=== PATIENT | female | born 1955 | race Caucasian/White ===

== ENCOUNTER → 2017-06-02 07:58 | Day surgery (SDC) | payer MEDICARE, OTHER, SELFPAY ==
[2017-06-01 11:47] VITALS: BMI 31.4
[2017-06-02] VITALS (10 sets, daily range): BP systolic 104–153; BP diastolic 48–79; PULSE 58–73; RESP 12–20; TEMP 36.7–36.8; O2SAT 94–100
--- NOTE | 2017-06-02 08:59 | HMH.SCOPE ---
- Procedure: Date: 06/02/17 Procedure Performed:: Esophagogastroduodenoscopy with biopsies Indications:: Patient is a 61-year-old white female with history of Wills's esophagus. She had undergone upper endoscopy 1 year ago and had biopsy-proven Wills's esophagus without dysplasia. She has been on Nexium. Also of note, patient had previously had a colonoscopy and it was recommended she undergo follow-up 3 years from now. Patient has some minor symptoms of occasional dysphagia but this is minimal. Performing Provider:: Matt Mohr MD Referring Provider:: Edson Berkowitz MD Sedation:: Versed 7 mg, fentanyl 150 mcg. Procedure:: Consent was obtained and patient was taken to endoscopy procedure room. She was positioned in a lateral decubitus position. Adequate anesthesia was achieved with titration of Versed and fentanyl. Olympus endoscope was inserted via the oropharynx. The majority of the esophagus appeared normal. The distal esophagus approximately 33 cm from the incisors there was a very short segment of Wills's. Stomach was cannulated and insufflated. Retroflexion was performed which revealed a small to moderate sliding hiatal hernia. Gastric antral mucosal biopsies obtained for CLOtest for H. pylori. Pylorus was traversed and the endoscope was advanced into the duodenum which appeared unremarkable. Endoscope was withdrawn into the distal esophagus and several biopsies were obtained at the gastroesophageal junction. Endoscope was withdrawn. Findings:: Apparent short segment of Wills's Hiatal hernia Recommendations:: Continue proton pump inhibitors. Follow-up on histopathology. Repeat upper endoscopy within 2 years. Complications:: None Estimated blood obtained (mL): 3
== END ==
PROVIDERS: Family Provider Internal Medicine Adolescent Medicine; PCP Internal Medicine Adolescent Medicine; Visit Provider Surgery
PROC: 0DJ08ZZ Inspection of Upper Intestinal Tract, Via Natural or Artificial Opening Endoscopic (ICD-10-PCS; CPT 43235; principal; 2017-06-02 08:30)
DX: K22.70 Barrett's esophagus without dysplasia (principal); K44.9 Diaphragmatic hernia without obstruction or gangrene
CPT/HCPCS: 43239; 87339; 99152

== ENCOUNTER → 2017-07-20 09:49 | Outpatient (CLI) | payer MEDICARE, OTHER, SELFPAY ==
[2017-07-20 10:23] LABS: Basophils % 0.6 % (0.1-2.0); Eosinophils # 0.2 K/mm3 (0.0-0.4); Eosinophils % 3.8 % (0.1-12.0); Hematocrit 37.3 % (37.0-47.0); Lymphocytes # 1.1 K/mm3 (0.7-4.5); Lymphocytes % 21.7 K/mm3 (10-50); Mean Corpuscular HGB Conc 32.1 g/dL (31.8-35.4); Mean Corpuscular Volume 93.4 fl (81-99); Mean Platelet Volume 8.5 fl (7.4-10.4); Monocytes # 0.3 K/mm3 (0.1-1.0); Neutrophils # 3.5 K/mm3 (1.8-7.8); Neutrophils % 67.9 % (37.0-80.0); Platelet Count 249 K/mm3 (142-424); Red Blood Count 3.99 M/mm3 (4.20-5.40); Red Cell Distribution Width 12.7 % (11.5-17.5); White Blood Count 5.2 K/mm3 (4.8-10.8)
[2017-07-20 12:53] LABS: Alanine Aminotransferase 36 U/L (12-78); Albumin/Globulin Ratio 1.3 (1.1-1.8); Alkaline Phosphatase 107 U/L (46-116); Anion Gap 12.7 mEq/L (5-15); Aspartate Amino Transferase 32 U/L (15-37); Bilirubin,Total 0.4 mg/dL (0.2-1.0); Blood Urea Nitrogen 25 mg/dL (7-18); Calcium 9.7 mg/dL (8.5-10.1); Carbon Dioxide 32 mmol/L (21.0-32.0); Chloride 102 mmol/L (98-107); Chol/HDL Ratio 3.5 (1-3.5); Cholesterol 209 mg/dL (140-200); Estimated Glomerular Filt Rate 50 ml/min (>60); GFR (African American) 61 ML/MIN (>60); Globulin 3.2 gm/dl (1.3-3.2); Glucose 104 mg/dL (74-106); HDL Cholesterol 59 mg/dL (29-89); LDL Cholesterol 121 mg/dL (0-130); Potassium 5.7 mmoL/L (3.5-5.1); Sodium 141 mmol/L (136-145); Total Protein,Serum 7.2 gm/dL (6.4-8.2); Triglycerides 144 mg/dL (30-200); VLDL Cholesterol 29 mg/dL (0-40)
== END ==
PROVIDERS: Visit Provider Nurse Practitioner Family
DX: I10 Essential (primary) hypertension (principal); E78.2 Mixed hyperlipidemia; D63.8 Anemia in other chronic diseases classified elsewhere
CPT/HCPCS: 36415; 80053; 80061; 85025

== ENCOUNTER → 2017-09-28 08:30 | Outpatient (CLI) | payer MEDICARE, SELFPAY ==
[2017-09-28 08:52] LABS: Basophils % 0.5 % (0.1-2.0); Eosinophils # 0.1 K/mm3 (0.0-0.4); Eosinophils % 3.3 % (0.1-12.0); Hematocrit 37.7 % (37.0-47.0); Hemoglobin 11.9 g/dL (12.2-16.2); Lymphocytes # 1.1 K/mm3 (0.7-4.5); Lymphocytes % 26.1 K/mm3 (10-50); Mean Corpuscular HGB Conc 31.5 g/dL (31.8-35.4); Mean Corpuscular Hemoglobin 29.3 pg (27.0-31.2); Mean Corpuscular Volume 92.9 fl (81-99); Mean Platelet Volume 8.5 fl (7.4-10.4); Monocytes # 0.2 K/mm3 (0.1-1.0); Monocytes % 5.1 % (1.7-9.3); Neutrophils # 2.8 K/mm3 (1.8-7.8); Platelet Count 242 K/mm3 (142-424); Red Blood Count 4.06 M/mm3 (4.20-5.40); Red Cell Distribution Width 12.7 % (11.5-17.5); White Blood Count 4.2 K/mm3 (4.8-10.8)
[2017-09-28 10:15] LABS: Alanine Aminotransferase 23 U/L (12-78); Albumin Level 3.8 gm/dL (3.4-5.0); Albumin/Globulin Ratio 1.3 (1.1-1.8); Alkaline Phosphatase 103 U/L (46-116); Anion Gap 12.3 mEq/L (5-15); Aspartate Amino Transferase 23 U/L (15-37); Bilirubin,Total 0.4 mg/dL (0.2-1.0); Blood Urea Nitrogen 26 mg/dL (7-18); Calcium 8.5 mg/dL (8.5-10.1); Carbon Dioxide 30 mmol/L (21.0-32.0); Chloride 104 mmol/L (98-107); Creatinine,Serum 0.91 mg/dL (0.55-1.02); Estimated Glomerular Filt Rate 62 ml/min (>60); GFR (African American) 76 ML/MIN (>60); Glucose 107 mg/dL (74-106); Potassium 4.3 mmoL/L (3.5-5.1); Sodium 142 mmol/L (136-145); Total Protein,Serum 6.8 gm/dL (6.4-8.2)
== END ==
PROVIDERS: Visit Provider Nurse Practitioner Family
DX: D63.8 Anemia in other chronic diseases classified elsewhere (principal); I10 Essential (primary) hypertension; E78.2 Mixed hyperlipidemia
CPT/HCPCS: 36415; 80053; 85025

== ENCOUNTER 2017-11-19 10:30 | Outpatient (RCR) | payer MEDICARE, SELFPAY | END 2017-11-19 10:31 | disposition home or self-care (01) | LOC: PT 10:30 | PROVIDERS: Family Provider Internal Medicine Adolescent Medicine; PCP Internal Medicine Adolescent Medicine; Visit Provider Physician Assistant Medical | DX: R26.89 Other abnormalities of gait and mobility (principal); G35 Multiple sclerosis | CPT/HCPCS: 97110; 97112; 97163 ==

== ENCOUNTER → 2018-01-28 08:33 | Outpatient (CLI) | payer MEDICARE, SELFPAY ==
[2018-01-28 09:08] LABS: Basophils % 0.4 % (0.1-2.0); Eosinophils # 0.1 K/mm3 (0.0-0.4); Eosinophils % 2.9 % (0.1-12.0); Hematocrit 36.8 % (37.0-47.0); Lymphocytes # 1.1 K/mm3 (0.7-4.5); Mean Corpuscular HGB Conc 32.6 g/dL (31.8-35.4); Mean Corpuscular Hemoglobin 29.7 pg (27.0-31.2); Mean Corpuscular Volume 90.9 fl (81-99); Mean Platelet Volume 8.1 fl (7.4-10.4); Monocytes # 0.2 K/mm3 (0.1-1.0); Monocytes % 4.3 % (1.7-9.3); Neutrophils # 3.4 K/mm3 (1.8-7.8); Neutrophils % 69.4 % (37.0-80.0); Platelet Count 290 K/mm3 (142-424); Red Blood Count 4.05 M/mm3 (4.20-5.40); Red Cell Distribution Width 13.4 % (11.5-17.5); White Blood Count 4.9 K/mm3 (4.8-10.8)
[2018-01-28 10:13] LABS: Alanine Aminotransferase 27 U/L (12-78); Albumin Level 4.1 gm/dL (3.4-5.0); Albumin/Globulin Ratio 1.3 (1.1-1.8); Alkaline Phosphatase 116 U/L (46-116); Anion Gap 12.5 mEq/L (5-15); Aspartate Amino Transferase 25 U/L (15-37); Bilirubin,Total 0.6 mg/dL (0.2-1.0); Blood Urea Nitrogen 24 mg/dL (7-18); Calcium 9.4 mg/dL (8.5-10.1); Carbon Dioxide 33 mmol/L (21.0-32.0); Chloride 102 mmol/L (98-107); Chol/HDL Ratio 3.4 (1-3.5); Cholesterol 199 mg/dL (140-200); Creatinine,Serum 0.92 mg/dL (0.55-1.02); Estimated Glomerular Filt Rate 62 ml/min (>60); GFR (African American) 75 ML/MIN (>60); Globulin 3.1 gm/dl (1.3-3.2); Glucose 101 mg/dL (74-106); HDL Cholesterol 58 mg/dL (29-89); LDL Cholesterol 113 mg/dL (0-130); Potassium 4.5 mmoL/L (3.5-5.1); Sodium 143 mmol/L (136-145); Total Protein,Serum 7.2 gm/dL (6.4-8.2); Triglycerides 142 mg/dL (30-200); VLDL Cholesterol 28 mg/dL (0-40)
[2018-01-28 10:41] LABS: Ferritin 201 ng/mL (8-388)
== END ==
PROVIDERS: PCP Internal Medicine Adolescent Medicine; Visit Provider Nurse Practitioner Family
DX: E78.2 Mixed hyperlipidemia (principal); D63.8 Anemia in other chronic diseases classified elsewhere; I10 Essential (primary) hypertension
CPT/HCPCS: 36415; 80053; 80061; 82728; 85025

== ENCOUNTER → 2018-05-26 08:03 | Outpatient (CLI) | payer MEDICARE, SELFPAY ==
[2018-05-26 08:56] LABS: Basophils % 0.7 % (0.1-2.0); Eosinophils # 0.1 K/mm3 (0.0-0.4); Eosinophils % 2.2 % (0.1-12.0); Hematocrit 35.4 % (37.0-47.0); Hemoglobin 11.7 g/dL (12.2-16.2); Lymphocytes # 1.1 K/mm3 (0.7-4.5); Lymphocytes % 29.2 % (10-50); Monocytes # 0.2 K/mm3 (0.1-1.0); Monocytes % 5.8 % (1.7-9.3); Neutrophils # 2.4 K/mm3 (1.8-7.8); Neutrophils % 62.1 % (37.0-80.0); Platelet Count 248 K/mm3 (142-424); Red Blood Count 3.89 M/mm3 (4.20-5.40); Red Cell Distribution Width 13.3 % (11.5-17.5); White Blood Count 3.9 K/mm3 (4.8-10.8)
[2018-05-26 09:32] LABS: Alanine Aminotransferase 31 U/L (12-78); Albumin Level 3.9 gm/dL (3.4-5.0); Albumin/Globulin Ratio 1.3 (1.1-1.8); Alkaline Phosphatase 101 U/L (46-116); Anion Gap 12.6 mEq/L (5-15); Aspartate Amino Transferase 21 U/L (15-37); Bilirubin,Total 0.5 mg/dL (0.2-1.0); Blood Urea Nitrogen 26 mg/dL (7-18); Calcium 9.5 mg/dL (8.5-10.1); Carbon Dioxide 30 mmol/L (21.0-32.0); Chloride 102 mmol/L (98-107); Chol/HDL Ratio 2.9 (1-3.5); Cholesterol 178 mg/dL (140-200); Creatinine,Serum 1.06 mg/dL (0.55-1.02); Estimated Glomerular Filt Rate 52 ml/min (>60); Free T4 (Free Thyroxine) 1.13 ng/dl (0.76-1.46); GFR (African American) 63 ML/MIN (>60); Glucose 95 mg/dL (74-106); HDL Cholesterol 61 mg/dL (29-89); LDL Cholesterol 88 mg/dL (0-130); Potassium 4.6 mmoL/L (3.5-5.1); Sodium 140 mmol/L (136-145); Total Protein,Serum 6.9 gm/dL (6.4-8.2); Triglycerides 143 mg/dL (30-200); VLDL Cholesterol 29 mg/dL (0-40)
== END ==
PROVIDERS: Visit Provider Nurse Practitioner Family
DX: E78.2 Mixed hyperlipidemia (principal); I49.1 Atrial premature depolarization; R06.09 Other forms of dyspnea
CPT/HCPCS: 36415; 80053; 80061; 83735; 84439; 84443; 85025

== ENCOUNTER → 2018-05-27 07:09 | Outpatient (CLI) | payer MEDICARE, SELFPAY ==
--- NOTE | 2018-05-27 07:14 | NM_ITS ---
History and Indications: Hypertension, hyperlipidemia, family history, chest pain, shortness of breath, operations, fatigue and abnormal EKG Procedure: Patient exercised on Trung protocol 5 minutes and 30 seconds, resting heart rate was 70 bpm resting blood pressure 146/71, with exercise maximum heart rate achieved was 1 75 bpm which is greater than 85% of the maximum predicted heart rate and a blood pressure was 175/70. Test was started shortness of breath patient denied any complained of chest pain. Patient has adequate exercise capacity achieved 7mets of workload on treadmill, the blood pressure response to exercise was adequate. Electrocardiogram: Resting echocardiogram showed sinus rhythm nonspecific ST-T changes, with exercise excessive baseline artifact seen, there is 1.[address] segment depression seen in the recovery. The EKG portion of the exercise Myoview is positive for ischemia. Cardiac stress and resting SPECT images: Cardiac stress and resting SPECT images were obtained using technetium 99 Myoview 30.0 mCi stress and 10.1 mCi at rest gated SPECT further analysis of segmental wall motion and calculation of the ejection fraction also done. Cardiac stress and resting SPECT images show a mild fixed defect in the anterior wall with normal contractility gated SPECT is likely secondary to soft tissue attenuation, no reversible ischemia seen. Computer derived ejection fraction is 63% with no regional wall motion abnormality, right ventricle is normal size and contractility. Conclusion: 1. The EKG portion of the exercise Myoview is positive for ischemia, patient has adequate exercise capacity achieved 7mets of workload on treadmill, the blood pressure response to exercise was adequate, there was no exercise-induced chest discomfort. 2. No obvious scintigraphic evidence of reversible ischemia seen, computer derived ejection fraction is 63% with no regional wall motion abnormality, right ventricle is normal size and contractility.
--- NOTE | 2018-05-27 09:35 | HMH.ITSHM ---
Current Home Medications as stated by this patient Norah Carlisle or patient access representative. []metoprolol furosemide baclofen lisinopril atovastatin fecfidera levocetirizine ventolin asastrozole asa
== END ==
PROVIDERS: PCP Nurse Practitioner Family; Visit Provider Nurse Practitioner Family
DX: R06.09 Other forms of dyspnea (principal); I49.1 Atrial premature depolarization; E78.2 Mixed hyperlipidemia; I10 Essential (primary) hypertension; Z87.891 Personal history of nicotine dependence
CPT/HCPCS: 78452; 93017; A9502

== ENCOUNTER → 2018-08-02 07:52 | Outpatient (CLI) | payer MEDICARE, SELFPAY ==
[2018-08-02 08:43] LABS: Basophils % 0.4 % (0.1-2.0); Eosinophils # 0.2 K/mm3 (0.0-0.4); Eosinophils % 2.8 % (0.1-12.0); Hematocrit 36.2 % (37.0-47.0); Lymphocytes # 1.4 K/mm3 (0.7-4.5); Lymphocytes % 23.9 % (10-50); Mean Corpuscular HGB Conc 33.1 g/dL (31.8-35.4); Mean Corpuscular Hemoglobin 30.1 pg (27.0-31.2); Mean Corpuscular Volume 90.9 fl (81-99); Mean Platelet Volume 9.5 fl (7.4-10.4); Monocytes # 0.3 K/mm3 (0.1-1.0); Monocytes % 5.2 % (1.7-9.3); Neutrophils # 4.1 K/mm3 (1.8-7.8); Neutrophils % 67.7 % (37.0-80.0); Platelet Count 243 K/mm3 (142-424); Red Blood Count 3.99 M/mm3 (4.20-5.40); Red Cell Distribution Width 13.1 % (11.5-17.5)
[2018-08-02 10:39] LABS: Alanine Aminotransferase 38 U/L (12-78); Albumin/Globulin Ratio 1.2 (1.1-1.8); Alkaline Phosphatase 110 U/L (46-116); Anion Gap 13.3 mEq/L (5-15); Aspartate Amino Transferase 20 U/L (15-37); Bilirubin,Total 0.4 mg/dL (0.2-1.0); Blood Urea Nitrogen 21 mg/dL (7-18); Carbon Dioxide 29 mmol/L (21.0-32.0); Chloride 103 mmol/L (98-107); Chol/HDL Ratio 3.6 (1-3.5); Cholesterol 182 mg/dL (140-200); Creatine Kinase 186 U/L (26-192); Creatinine,Serum 0.89 mg/dL (0.55-1.02); Estimated Glomerular Filt Rate 64 ml/min (>60); Free T4 (Free Thyroxine) 1.02 ng/dl (0.76-1.46); GFR (African American) 77 ML/MIN (>60); Globulin 3.4 gm/dl (1.3-3.2); Glucose 92 mg/dL (74-106); HDL Cholesterol 50 mg/dL (29-89); LDL Cholesterol 96 mg/dL (0-130); Potassium 4.3 mmoL/L (3.5-5.1); Sodium 141 mmol/L (136-145); Thyroid Stimulating Hormone 1.81 uIU/ml (0.358-3.740); Total Protein,Serum 7.4 gm/dL (6.4-8.2); Triglycerides 181 mg/dL (30-200); VLDL Cholesterol 36 mg/dL (0-40)
[2018-08-02 15:08] LABS: Hemoglobin A1C 5.6 % (0.0-7.0)
[2018-08-03 10:14] LABS: Vitamin D 25 Hydroxy 42.7 ng/mL (30.0-100.0)
== END ==
DX: I25.10 Atherosclerotic heart disease of native coronary artery without angina pectoris (principal); E78.5 Hyperlipidemia, unspecified; Z79.899 Other long term (current) drug therapy
CPT/HCPCS: 36415; 80053; 80061; 82550; 82652; 83036; 84439; 84443; 85025

== ENCOUNTER → 2019-03-11 07:16 | Outpatient (CLI) | payer MEDICARE, SELFPAY ==
[2019-03-11 07:48] LABS: Basophils % 0.5 % (0.1-2.0); Eosinophils # 0.1 K/mm3 (0.0-0.4); Eosinophils % 2.4 % (0.1-12.0); Hematocrit 36.9 % (37.0-47.0); Hemoglobin 11.8 g/dL (12.2-16.2); Lymphocytes # 1.5 K/mm3 (0.7-4.5); Lymphocytes % 30.8 % (10-50); Mean Corpuscular HGB Conc 31.9 g/dL (31.8-35.4); Mean Corpuscular Hemoglobin 30.3 pg (27.0-31.2); Mean Corpuscular Volume 94.9 fl (81-99); Mean Platelet Volume 8.2 fl (7.4-10.4); Monocytes # 0.3 K/mm3 (0.1-1.0); Monocytes % 6.6 % (1.7-9.3); Neutrophils # 2.9 K/mm3 (1.8-7.8); Neutrophils % 59.7 % (37.0-80.0); Platelet Count 243 K/mm3 (142-424); Red Blood Count 3.88 M/mm3 (4.20-5.40); Red Cell Distribution Width 13.2 % (11.5-17.5); White Blood Count 4.8 K/mm3 (4.8-10.8)
[2019-03-11 09:33] LABS: Alanine Aminotransferase 35 U/L (12-78); Albumin Level 3.8 gm/dL (3.4-5.0); Albumin/Globulin Ratio 1.4 (1.1-1.8); Alkaline Phosphatase 95 U/L (46-116); Anion Gap 14.5 mEq/L (5-15); Aspartate Amino Transferase 29 U/L (15-37); Bilirubin,Total 0.5 mg/dL (0.2-1.0); Blood Urea Nitrogen 21 mg/dL (7-18); Calcium 8.9 mg/dL (8.5-10.1); Carbon Dioxide 28 mmol/L (21.0-32.0); Chloride 104 mmol/L (98-107); Chol/HDL Ratio 2.6 (1-3.5); Cholesterol 157 mg/dL (140-200); Creatine Kinase 232 U/L (26-192); Creatinine,Serum 0.96 mg/dL (0.55-1.02); Estimated Glomerular Filt Rate 59 ml/min (>60); Free T4 (Free Thyroxine) 1.04 ng/dl (0.76-1.46); GFR (African American) 71 ML/MIN (>60); Globulin 2.8 gm/dl (1.3-3.2); Glucose 98 mg/dL (74-106); HDL Cholesterol 60 mg/dL (29-89); LDL Cholesterol 73 mg/dL (0-130); Potassium 4.5 mmoL/L (3.5-5.1); Sodium 142 mmol/L (136-145); Thyroid Stimulating Hormone 3.39 uIU/ml (0.358-3.740); Total Protein,Serum 6.6 gm/dL (6.4-8.2); Triglycerides 122 mg/dL (30-200); VLDL Cholesterol 24 mg/dL (0-40)
[2019-03-12 17:53] LABS: Vitamin D 25 Hydroxy 40.1 ng/mL (30.0-100.0)
== END ==
DX: E78.5 Hyperlipidemia, unspecified (principal); I10 Essential (primary) hypertension
CPT/HCPCS: 36415; 80053; 80061; 82550; 82652; 84439; 84443; 85025; 86141

== ENCOUNTER 2019-08-30 12:18 | Emergency (ER) | payer MEDICARE, SELFPAY ==
[2019-08-30 12:30] VITALS: BP 139/67; PULSE 71; RESP 18; TEMP 36.7; O2SAT 99; BMI 27.3
--- NOTE | 2019-08-30 12:51 | HMH.EDSKAF ---
ED Disposition Clinical Impression: Cellulitis Disposition: Home, Self-Care Condition on Discharge: Good Instructions: DI for Skin Abscess Prescriptions: Sulfamethoxazole/Trimethoprim [Bactrim DS tablet] 1 each PO BID 10 Days #20 tab Transmission Status: Pending to [id number] Referrals: Edson Berkowitz MD [Primary Care Provider] - - Critical Care Critical Care Time: No Attestation: On 08/30/19, the high probability of a clinically significant, sudden or life threatening deterioration of the following system(s) required my full and direct attention, intervention and personal management. The time I documented below is in addition to time spent performing reported procedures but includes the following listed in this critical care notation. Medical Decision Making - Medical Records Medical records reviewed: Yes: I reviewed the patient's medical records. - Nate Inquiry Pt receiving controlled substance: No Vital Signs: 08/30/19 12:30 Temperature 98.0 F Temperature Source Oral Pulse Rate [Right Radial] 71 Respiratory Rate 18 Blood Pressure [Right Arm] 139/67 Blood Pressure Mean [Right Arm] 91 Blood Pressure Source [Right Arm] Automatic Cuff Blood Pressure Position [Right Arm] Sitting 02 Sat by Pulse Oximetry 99 Oxygen Delivery Method Room Air - Lab Data Lab results reviewed: Yes: I reviewed the patient's lab results. Skin/Abscess/FB HPI - General Chief complaint: Skin/Abscess/Foreign Body Stated complaint: ao 08/27/19 LEFT ARM SCRATCH FROM DOG Time Seen by Provider: 08/30/19 12:51 Mode of Arrival: Ambulatory Source of Information: Patient Limitations: No Limitations Description of Symptoms (Recalled from ER Triage Doc. by RN): Pt has an open area to L forearm from a dog scratch, 3 days ago. Pt reports concern for infection of area, area is warm to the touch - History of Present Illness HPI narrative: 64-year-old female comes in to the ER with an abrasion on her left forearm. The abrasion was caused from being scratched by a dog did a minor skin tear to the patient. Otherwise patient denies any pain. She does have some erythema around the area and also some swelling and pain. She denies any recent fever shakes or chills she denies any cough or shortness of breath she denies any headache sore throat or myalgias or arthralgias. - Related Data Home Medications Medication Instructions Recorded Confirmed albuterol sulfate 90 mcg/actuation 1 puff INHALATION Q6H 05/25/17 03/07/19 aerosol inhaler anastrozole 1 mg tablet 1 mg PO ONCE 05/25/17 03/07/19 baclofen 20 mg tablet 20 mg PO Q8H 05/25/17 03/07/19 budesonide-formoterol HFA 160 2 inh INHALATION Q12H 05/25/17 03/07/19 mcg-4.5 mcg/actuation aerosol inhaler cetirizine 10 mg capsule 10 mg PO ONCE 05/25/17 03/07/19 dimethyl fumarate 240 mg 240 mg PO BID 05/25/17 03/07/19 capsule,delayed release esomeprazole magnesium 40 mg 40 mg PO ONCE cap 05/25/17 03/07/19 capsule,delayed release furosemide 20 mg tablet 20 mg PO ONCE 05/25/17 03/07/19 lisinopril 20 mg tablet 20 mg PO ONCE 05/25/17 03/07/19 metoprolol tartrate 25 mg tablet 25 mg PO BID 05/25/17 03/07/19 Heriberto/D3/Mag11/Zinc/Pattern Repair Person/Ivan/Bor 1 each PO DAILY 06/01/17 03/07/19 [Caltrate 600+D Plus Tablet] Ergocalciferol (Vitamin D2) 400 unit PO DAILY 06/01/17 03/07/19 [Vitamin D] Multivitamin/Iron/Folic Acid 1 each PO DAILY 06/01/17 03/07/19 [Centrum Complete Multivit Tab] Sodium, Potassium,Mag Sulfates See Rx Instructions PO .COMPLEX 02/14/19 03/07/19 [Suprep Bowel Prep Kit] Previous Rx's Medication Instructions Recorded hydrocortisone 2.5 % topical cream 1 applic NJ BID PRN #30 g 12/31/18 with perineal applicator omeprazole 40 mg capsule,delayed 40 mg PO DAILY #90 cap 06/06/19 release Sulfamethoxazole/Trimethoprim 1 each PO BID 10 Days #20 tab 08/30/19 [Bactrim DS tablet] Allergies Allergy/AdvReac Type Severity Reaction Status Date / Time No
[2019-08-30 13:04] VITALS: BP 139/67; PULSE 71; RESP 18; TEMP 36.7; O2SAT 99
== END 2019-08-30 13:05 | disposition home or self-care (01) ==
PROVIDERS: Emergency Provider Family Medicine; PCP Internal Medicine Adolescent Medicine
DX: L03.114 Cellulitis of left upper limb (principal); I10 Essential (primary) hypertension; J44.9 Chronic obstructive pulmonary disease, unspecified; I25.10 Atherosclerotic heart disease of native coronary artery without angina pectoris; K21.9 Gastro-esophageal reflux disease without esophagitis; E78.5 Hyperlipidemia, unspecified; Z87.891 Personal history of nicotine dependence; Z79.899 Other long term (current) drug therapy
CPT/HCPCS: 99281

== ENCOUNTER → 2019-09-02 07:40 | Outpatient (CLI) | payer MEDICARE, SELFPAY ==
--- NOTE | 2019-09-02 08:01 | CT_ITS ---
PROCEDURE: CT LUNG SCREENING CLINICAL INDICATION: H/O TOBACCO USE Seventy pack-year smoking history, asymptomatic for lung cancer COMPARISON: No exams were available for comparison TECHNIQUE: The exam was performed on a GE Light Speed [address] scanner using 2.90 mGy CTDI. A low dose helical CT CHEST was performed on a multi-detector scanner. All CT scans at the facility use one or more dose reduction, viz: automated exposure control, ma/kV adjustment per patient size (including targeted exams where dose is matched to indication, i.e. head), or iterative reconstruction technique. The LDCT was performed in a facility that meets the criteria for the screening program. Data regarding this exam was submitted to ACR which is an approved registry. The order for this exam indicates that it came as a result of a lung cancer screening counseling shard decision-making visit that included all the elements required of such a visit including smoking cessation. The radiologist interpreting this exam meets the CMS criteria for the LDCT lung cancer screening program. The exam is reported using the Lung-RADS classification scale and reported to the ACR registry. NOTE: This study was performed for the specific purposes of lung cancer screening and is not an alternative to diagnostic chest CT. RADIATION DOSE: CTDI vol(CT dose Index-volume) = 2.90mG DLP (Dose Length Product) = 106.81 mGcm Lung Rads Category: FINDINGS: COPD changes. No suspicious pulmonary nodules. Calcified granuloma right upper lobe OTHER FINDINGS: Coronary artery calcifications. Mild thickening of the distal esophagus nonspecific IMPRESSION: Lung rads category 1, negative. Recommend annual LDCT screening exam Dictated by: Zach Acevedo MD 09/14/2019 10:40 Electronically signed by Zach Acevedo MD in [place] 09/14/2019 10:40
== END ==
PROVIDERS: PCP Internal Medicine Adolescent Medicine; Visit Provider Nurse Practitioner Family
DX: Z87.891 Personal history of nicotine dependence (principal); Z12.2 Encounter for screening for malignant neoplasm of respiratory organs

== ENCOUNTER 2019-09-03 09:08 | Emergency (ER) | payer MEDICARE, SELFPAY ==
[2019-09-03 09:10] VITALS: BP 130/63; PULSE 80; RESP 18; TEMP 36.6; O2SAT 100; BMI 27.3
--- NOTE | 2019-09-03 09:22 | HMH.EDGENADL ---
ED Disposition Clinical Impression: Acute kidney injury, Renal insufficiency Forehead contusion Qualifiers: Encounter type: initial encounter Qualified Code(s): S00.83XA - Contusion of other part of head, initial encounter Fall Qualifiers: Encounter type: initial encounter Qualified Code(s): W19.XXXA - Unspecified fall, initial encounter Left ankle sprain Qualifiers: Encounter type: initial encounter Involved ligament of ankle: anterior talofibular ligament Qualified Code(s): S93.492A - Sprain of other ligament of left ankle, initial encounter Disposition: Home, Self-Care Condition on Discharge: Good Instructions: DI for Ankle Sprain, DI for Contusion, How to Prevent Falls, DI for Closed Head Injury Additional Instructions: Stop Lasix and decrease lisinopril to 10 mg a day (one half tab) until Thursday. Call primary care provider on Thursday for further instructions. You may use your orthopedic boot for 5 to 7 days as needed. Ice and elevate to reduce swelling in the ankle. Tylenol for pain. Additional instructions for HEAD INJURY: See your physician as soon as possible for further evaluation. Return immediately if severe headache, vomiting, problems with vision or speech, numbness or weakness of the extremities, or severe neck pain. Referrals: Edson Berkowitz MD [Primary Care Provider] - - Critical Care Critical Care Time: No Attestation: On 09/03/19, the high probability of a clinically significant, sudden or life threatening deterioration of the following system(s) required my full and direct attention, intervention and personal management. The time I documented below is in addition to time spent performing reported procedures but includes the following listed in this critical care notation. Medical Decision Making - Medical Records Medical records reviewed: Yes: I reviewed the patient's medical records. - Nate Inquiry Pt receiving controlled substance: No Vital Signs: 09/03/19 09:10 09/03/19 09:48 09/03/19 09:55 Temperature 98 F Temperature Source Temporal Artery Scan Pulse Rate Pulse Rate [Orthostatic Lying] 70 Pulse Rate [Orthostatic Sitting] 63 Pulse Rate [Orthostatic Standing] 66 Pulse Rate [Right] 80 66 Respiratory Rate 18 20 Blood Pressure Blood Pressure [Orthostatic Lying] 130/63 Blood Pressure [Orthostatic Sitting] 128/63 Blood Pressure [Orthostatic Standing] 142/64 H Blood Pressure [Right Arm] 130/63 142/64 H Blood Pressure Mean [Right Arm] 85 90 Blood Pressure Source [Right Arm] Automatic Cuff Blood Pressure Position [Right Arm] Sitting 02 Sat by Pulse Oximetry 100 09/03/19 11:08 09/03/19 11:40 Temperature 98.7 F Temperature Source Pulse Rate 68 Pulse Rate [Orthostatic Lying] Pulse Rate [Orthostatic Sitting] Pulse Rate [Orthostatic Standing] Pulse Rate [Right] 62 Respiratory Rate 20 18 Blood Pressure 130/62 Blood Pressure [Orthostatic Lying] Blood Pressure [Orthostatic Sitting] Blood Pressure [Orthostatic Standing] Blood Pressure [Right Arm] 131/57 L Blood Pressure Mean [Right Arm] 81 Blood Pressure Source [Right Arm] Automatic Cuff Blood Pressure Position [Right Arm] 02 Sat by Pulse Oximetry 100 - Lab Data Lab results reviewed: Yes: I reviewed the patient's lab results. Lab Results 09/03/19 09:50: Urine Color Yellow, Urine Appearance Clear, Urine pH 5.5, Ur Specific [place] 1.020, Urine Protein Negative, Urine Glucose (UA) Negative, Urine Ketones Negative, Urine Blood Negative, Urine Nitrate Negative, Urine Bilirubin Negative, Urine Urobilinogen 0.2, Ur Leukocyte Esterase Negative, Urine RBC None, Urine WBC None, Ur Squamous Epith Cells Occasional, Urine Bacteria Trace 09/03/19 09:50: WBC 6.7, RBC 3.50 L, Hgb 11.3 L, Hct 33.4 L, MCV 95.3, MCH 32.2 H, MCHC 33.8, RDW 13.5, Plt Count 213, MPV 8.7, Neut % (Auto) 78.3, Lymph % (Auto) 15.5, [place] % (Auto) 4.5, Eos % (Auto) 1.1, Baso % (Auto) 0.7, Neut # (Auto) 5.3, Lymph
--- NOTE | 2019-09-03 09:26 | CT_ITS ---
PROCEDURE: CT HEAD/BRAIN WO CON CLINICAL INDICATION: fall Head injury with headache/pain, contusion, abrasion or hematoma, injury to the left side of the head with pain COMPARISON: No exams were available for comparison TECHNIQUE: Axial images obtained. All CT scans at the facility use one or more dose reduction, viz: automated exposure control, ma/kV adjustment per patient size (including targeted exams where dose is matched to indication, i.e. head), or iterative reconstruction technique. FINDINGS: No midline shift, mass effect, intracranial hemorrhage, hydrocephalus, or extra-axial fluid collection is evident. The calvarium has an unremarkable appearance. No mastoid effusion. No sinus air-fluid level. IMPRESSION: No acute intracranial finding Dictated by: Zach Acevedo MD 09/03/2019 10:57 Electronically signed by Zach Acevedo MD in [place] 09/03/2019 10:57
--- NOTE | 2019-09-03 09:28 | XR_ITS ---
PROCEDURE: XR ANKLE LT MIN 3V CLINICAL INDICATION: fall Ankle pain and swelling following injury COMPARISON: No exams were available for comparison FINDINGS: No fracture, dislocation, lytic change, or blastic change evident. No significant degenerative change IMPRESSION: No acute findings. Dictated by: Zach Acevedo MD 09/03/2019 10:58 Electronically signed by Zach Acevedo MD in [place] 09/03/2019 10:58
--- NOTE | 2019-09-03 09:30 | XR_ITS ---
PROCEDURE: XR CHEST 2V CLINICAL HISTORY: fall Posttraumatic pain COMPARISON: CXR CHEST(2 VIEWS-NOT PORTABLE) from 10/28/2012 CXR CHEST(2 VIEWS-NOT PORTABLE) from 05/17/2015 FINDINGS: The cardiomediastinal silhouette and pulmonary vascularity are within normal limits. The lungs are clear without infiltrates, suspicious nodules, or pleural effusions. No acute bony abnormalities. IMPRESSION: No acute findings. Dictated by: Zach Acevedo MD 09/03/2019 10:59 Electronically signed by Zach Acevedo MD in [place] 09/03/2019 10:59
--- NOTE | 2019-09-03 09:36 | ECG_ITS ---
APPROVED REPORT Exam: Resting ECG HR:65 bpm ECG Measurements Heart Rate 65 AXES NJ 156 P 57 QRSd 96 QRS 50 QT 408 T 33 QTc 424 <Conclusion> Sinus rhythm with premature atrial complexes Otherwise normal ECG Electronically signed by : Edson Berkowitz, 09/04/2019 07:08:41
[2019-09-03 09:48] VITALS: BP 142/64; PULSE 66; RESP 20
[2019-09-03 09:55] VITALS: BP 128/63; BP 130/63; BP 142/64; PULSE 63; PULSE 66; PULSE 70
[2019-09-03 09:56] LABS: Microscopic, Urine URINE MICROSCOPIC (MICROSCOPIC)
--- NOTE | 2019-09-03 09:56 | PC.NURSE ---
Pt to rad
[2019-09-03 09:58] LABS: Appearance,Urine CLEAR (Clear); Bilirubin,Urine Negative (Negative); Blood, Urine Negative (Negative); Color,Urine YELLOW (Yellow); Glucose,Urine (UA) Negative (Negative); Ketones,Urine Negative (Negative); Leukocyte Esterase,Urine Negative (Negative); Nitrate,Urine Negative (Negative); PH,Urine 5.5 (5.0-8.5); Protein,Urine Negative (Negative); Urobilinogen,Urine 0.2 EU/dl (0.2)
[2019-09-03 09:59] LABS: Basophils % 0.7 % (0.1-2.0); Eosinophils # 0.1 K/mm3 (0.0-0.4); Eosinophils % 1.1 % (0.1-12.0); Hematocrit 33.4 % (37.0-47.0); Hemoglobin 11.3 g/dL (12.2-16.2); Lymphocytes % 15.5 % (10-50); Mean Corpuscular HGB Conc 33.8 g/dL (31.8-35.4); Mean Corpuscular Hemoglobin 32.2 pg (27.0-31.2); Mean Corpuscular Volume 95.3 fl (81-99); Mean Platelet Volume 8.7 fl (7.4-10.4); Monocytes # 0.3 K/mm3 (0.1-1.0); Monocytes % 4.5 % (1.7-9.3); Neutrophils # 5.3 K/mm3 (1.8-7.8); Neutrophils % 78.3 % (37.0-80.0); Platelet Count 213 K/mm3 (142-424); Red Cell Distribution Width 13.5 % (11.5-17.5); White Blood Count 6.7 K/mm3 (4.8-10.8)
[2019-09-03 10:01] LABS: Chloride 104 mmol/L (98-107); Sodium 135 mmol/L (136-145)
[2019-09-03 10:04] LABS: Alanine Aminotransferase 35 U/L (12-78); Albumin Level 4.7 g/dl (3.5-5.0); Albumin/Globulin Ratio 1.7 (1.1-1.8); Alkaline Phosphatase 85 U/L (38-126); Aspartate Amino Transferase 48 U/L (14-36); Bilirubin,Total 0.6 mg/dl (0.2-1.3); Blood Urea Nitrogen 52 mg/dl (7-17); Calcium 9.8 mg/dl (8.4-10.2); Carbon Dioxide 22 mmol/L (22.0-30.0); Creatinine Clearance Estimated 31 mL/min (50-200); Estimated Glomerular Filt Rate 27 ml/min (>60); GFR (African American) 32 ML/MIN (>60); Globulin 2.7 g/dL (1.3-3.2); Glucose 124 mg/dl (74-100); Total Protein,Serum 7.4 g/dl (6.3-8.2)
[2019-09-03 10:10] LABS: Bacteria,Urine Trace /lpf; Squamous Epithelial Cell,Urine Occasional #/hpf (0-5)
--- NOTE | 2019-09-03 10:10 | PC.NURSE ---
Pt returned from rad
[2019-09-03 10:21] LABS: Troponin I < 0.01 ng/ml (0.00-0.034)
[2019-09-03 11:08] VITALS: BP 131/57; PULSE 62; RESP 20; O2SAT 100
[2019-09-03 11:40] VITALS: BP 130/62; PULSE 68; RESP 18; TEMP 37.1; O2SAT 99
== END 2019-09-03 11:52 | disposition home or self-care (01) ==
PROVIDERS: Emergency Provider Emergency Medicine; PCP Internal Medicine Adolescent Medicine
DX: N17.9 Acute kidney failure, unspecified (principal); S00.83XA Contusion of other part of head, initial encounter; S93.402A Sprain of unspecified ligament of left ankle, initial encounter; W01.0XXA Fall on same level from slipping, tripping and stumbling without subsequent striking against object, initial encounter; Y92.019 Unspecified place in single-family (private) house as the place of occurrence of the external cause; G35 Multiple sclerosis; I10 Essential (primary) hypertension; K21.9 Gastro-esophageal reflux disease without esophagitis; E78.5 Hyperlipidemia, unspecified; J44.9 Chronic obstructive pulmonary disease, unspecified; I25.10 Atherosclerotic heart disease of native coronary artery without angina pectoris; Z87.891 Personal history of nicotine dependence; Z79.899 Other long term (current) drug therapy
CPT/HCPCS: 70450; 71046; 73610; 80053; 81001; 84484; 85025; 93005; 96365; 99284

== ENCOUNTER → 2019-09-08 16:29 | Outpatient (CLI) | payer MEDICARE, SELFPAY ==
[2019-09-08 18:20] LABS: Chloride 99 mmol/L (98-107); Sodium 132 mmol/L (136-145)
[2019-09-08 18:21] LABS: Potassium 4.8 mmoL/L (3.5-5.1)
[2019-09-08 18:24] LABS: Anion Gap 13.8 mEq/L (5-15); Blood Urea Nitrogen 23 mg/dl (7-17); Calcium 9.1 mg/dl (8.4-10.2); Carbon Dioxide 24 mmol/L (22.0-30.0); Estimated Glomerular Filt Rate 41 ml/min (>60); GFR (African American) 50 ML/MIN (>60); Glucose 113 mg/dl (74-100)
== END ==
PROVIDERS: Visit Provider Nurse Practitioner Family
DX: N17.9 Acute kidney failure, unspecified (principal)
CPT/HCPCS: 36415; 80048

== ENCOUNTER → 2019-10-24 07:24 | Outpatient (CLI) | payer MEDICARE, SELFPAY ==
[2019-10-24 08:05] LABS: Basophils % 0.2 % (0.1-2.0); Eosinophils # 0.1 K/mm3 (0.0-0.4); Eosinophils % 1.4 % (0.1-12.0); Hematocrit 36.2 % (37.0-47.0); Lymphocytes # 1.3 K/mm3 (0.7-4.5); Lymphocytes % 18.8 % (10-50); Mean Corpuscular HGB Conc 33.1 g/dL (31.8-35.4); Mean Corpuscular Hemoglobin 31.9 pg (27.0-31.2); Mean Corpuscular Volume 96.3 fl (81-99); Mean Platelet Volume 8.6 fl (7.4-10.4); Monocytes # 0.3 K/mm3 (0.1-1.0); Monocytes % 4.2 % (1.7-9.3); Neutrophils % 75.3 % (37.0-80.0); Platelet Count 210 K/mm3 (142-424); Red Blood Count 3.76 M/mm3 (4.20-5.40); Red Cell Distribution Width 13.4 % (11.5-17.5); White Blood Count 6.7 K/mm3 (4.8-10.8)
[2019-10-24 08:34] LABS: Chloride 102 mmol/L (98-107)
[2019-10-24 08:35] LABS: Sodium 140 mmol/L (136-145)
[2019-10-24 08:37] LABS: Alanine Aminotransferase 26 U/L (12-78); Aspartate Amino Transferase 30 U/L (14-36); Blood Urea Nitrogen 16 mg/dl (7-17); Estimated Glomerular Filt Rate 72 ml/min (>60); GFR (African American) 87 ML/MIN (>60)
[2019-10-24 08:38] LABS: Albumin Level 4.3 g/dl (3.5-5.0); Albumin/Globulin Ratio 1.8 (1.1-1.8); Alkaline Phosphatase 79 U/L (38-126); Bilirubin,Total 0.7 mg/dl (0.2-1.3); Calcium 9.6 mg/dl (8.4-10.2); Carbon Dioxide 29 mmol/L (22.0-30.0); Cholesterol 138 mg/dl (140-200); Creatine Kinase 128 U/L (30-135); Globulin 2.4 g/dL (1.3-3.2); Glucose 116 mg/dl (74-100); HDL Cholesterol 70 mg/dl (40-60); Total Protein,Serum 6.7 g/dl (6.3-8.2); Triglycerides 80 mg/dl (30-150); VLDL Cholesterol 16 mg/dL (0-40)
[2019-10-24 08:55] LABS: Free T4 (Free Thyroxine) 0.92 ng/dl (0.78-2.19)
[2019-10-24 09:09] LABS: Thyroid Stimulating Hormone 3.42 uIU/mL (0.465-4.68)
[2019-10-24 09:13] LABS: Hemoglobin A1C 5.5 % (4.0-6.0)
[2019-10-24 09:29] LABS: 25-OH Vitamin D, Total 84.9 ng/mL (30-100)
== END ==
DX: I25.10 Atherosclerotic heart disease of native coronary artery without angina pectoris (principal); E78.5 Hyperlipidemia, unspecified; N28.9 Disorder of kidney and ureter, unspecified; Z79.899 Other long term (current) drug therapy
CPT/HCPCS: 36415; 80053; 80061; 82306; 82550; 83036; 84439; 84443; 85025

== ENCOUNTER → 2020-04-02 09:12 | Outpatient (CLI) | payer MEDICARE, SELFPAY ==
[2020-04-02 11:34] LABS: Coronavirus 19 IgG Antibody Positive (Negative); Coronavirus 19 IgM Antibody Positive (Negative)
== END ==
PROVIDERS: Visit Provider Surgery
DX: Z01.818 Encounter for other preprocedural examination (principal); Z86.19 Personal history of other infectious and parasitic diseases; Z13.810 Encounter for screening for upper gastrointestinal disorder; K22.70 Barrett's esophagus without dysplasia
CPT/HCPCS: 36415; 86328

== ENCOUNTER → 2020-04-23 08:13 | Outpatient (CLI) | payer MEDICARE, SELFPAY ==
[2020-04-24 08:48] LABS: Covid-19 Nasal PCR Sendout P&C NEGATIVE
== END ==
PROVIDERS: Visit Provider Internal Medicine Adolescent Medicine
DX: Z20.822 Contact with and (suspected) exposure to COVID-19 (principal)
CPT/HCPCS: U0004

== ENCOUNTER 2020-04-24 07:27 | Day surgery (SDC) | payer MEDICARE, SELFPAY ==
[2020-03-27 09:21] VITALS: BMI 27.3
--- NOTE | 2020-04-24 07:00 | HMH.GSHP ---
HPI HPI: Patient is a 64-year-old white female who presents for follow up EGD. She has a history of Wills's esophagitis and had undergone previous upper endoscopies by gastroenterology. I performed EGD and colonoscopy on her February 2015 and she had a hiatal hernia and chronic gastritis in the distal esophagus with a single tubular adenoma in the colon. She did undergo follow-up endoscopy in April 2016 which did reveal some Wills's esophagus and I recommended a follow-up upper endoscopy within 2 years. EGD and colonoscopy was performed on 02/15/2019. Duodenal biopsies were unremarkable although she had some hypertrophic appearing mucosa. Gastric biopsy revealed reactive gastropathy. She did have a short segment of biopsy-proven intestinal metaplasia without dysplasia at the gastroesophageal junction. Colonoscopy revealed tubular adenoma x3. Patient is currently on Prilosec 40 mg daily. Of note, the patient is now on Eliquis. [facility] History I have reviewed the patient's past medical history: Yes Medical History: Reports:: Cancer (left breast), Chronic Obstructive Pulmonary Disease (COPD), Coronary Artery Disease, Gastroesophageal Reflux Disease(GERD), Hyperlipidemia, Hypertension, Lung Disease Denies:: Diabetes Mellitus Type 1, Diabetes Mellitus Type 2, Internal Pacemaker, MRSA, Seizures *Have you ever received a pneumonia vaccine?: Yes *Have you received a flu vaccine this season?: Yes Other Medical History: Reports: Arthritis Laterality Cases: Left: Lumpectomy, Bilateral: Breast Biopsy, Other Other Surgeries: Yes: Cardiac Catheterization, Colonoscopy, EGD, Hysterectomy-Total, Tubal Ligation. No: Pacemaker Amputation: No Fractures: No - *Social History Last grade of school completed: 11th or 12th Smoking Status: Former smoker Tobacco Type: cigarettes Alcohol Intake: never Alcohol Intake Frequency:: other Substance Use Type: denies use *Occupational Status:: disabled Housing: house *Travel in the last 8 weeks: None Family Hx:: Asthma, Cancer, Diabetes, Heart Attack, Hyperlipidemia, Hypertension, Kidney Disease, Stroke, Substance abuse Review of Systems - Review of Systems Review of systems:: pertinent systems reviewed and negative unless documented below Meds Home Medications Medication Instructions Recorded Confirmed Type albuterol sulfate 90 mcg/actuation 1 puff INHALATION Q6H 05/25/17 03/09/20 History aerosol inhaler anastrozole 1 mg tablet 1 mg PO ONCE 05/25/17 03/09/20 History baclofen 20 mg tablet 20 mg PO Q8H 05/25/17 03/09/20 History budesonide-formoterol HFA 160 2 inh INHALATION Q12H 05/25/17 03/09/20 History mcg-4.5 mcg/actuation aerosol inhaler dimethyl fumarate 240 mg 240 mg PO BID 05/25/17 03/07/19 History capsule,delayed release metoprolol tartrate 25 mg tablet 25 mg PO BID 05/25/17 03/09/20 History Heriberto/D3/Mag11/Zinc/Silk Screen Painter/Ivan/Bor 1 each PO DAILY 06/01/17 03/07/19 History [Caltrate 600+D Plus Tablet] Ergocalciferol (Vitamin D2) 400 unit PO DAILY 06/01/17 03/09/20 History [Vitamin D] Multivitamin/Iron/Folic Acid 1 each PO DAILY 06/01/17 03/09/20 History [Centrum Complete Multivit Tab] omeprazole 40 mg capsule,delayed 40 mg PO DAILY #90 cap 06/06/19 03/09/20 Rx release apixaban 5 mg tablet 5 mg PO BID 03/09/20 03/09/20 History aspirin 81 mg chewable tablet 81 mg PO DAILY 03/09/20 03/09/20 History Mecobalamin [B12 Active] 1,000 mcg PO DAILY 03/27/20 03/27/20 History Allergies Allergy/AdvReac Type Severity Reaction Status Date / Time No Known Allergies Allergy Verified 03/09/20 09:12 Exam - *Routine HEENT Exam Head: Present: normocephalic Eye: Present: EOMI, PERRL ENT: Present: mucous membranes moist - *Routine Neck Exam Present: supple. Absent: lymphadenopathy - *Routine Respiratory Exam Present: CTA bilaterally - *Routine Cardiovascular Exam Present: RRR - *Routine Abdominal Exam Present: soft, normoactive bowel sounds. Absent: tenderness - *
[2020-04-24 08:34] VITALS: BP 166/74; PULSE 67; RESP 18; TEMP 36.8; O2SAT 98
[2020-04-24 08:51] VITALS: O2SAT 98
[2020-04-24 09:03] VITALS: BP 111/57; PULSE 68; RESP 18; TEMP 36.3; O2SAT 95
--- NOTE | 2020-04-24 09:04 | HMH.SCOPE ---
- Procedure: Date: 04/24/20 Patient Date of :: 1955 Procedure Performed:: Esophagogastroduodenoscopy with biopsies Indications:: Patient is a 64-year-old white female who presents for follow up EGD. She has a history of Wills's esophagitis and had undergone previous upper endoscopies by gastroenterology. I performed EGD and colonoscopy on her February 2015 and she had a hiatal hernia and chronic gastritis in the distal esophagus with a single tubular adenoma in the colon. She did undergo follow-up endoscopy in April 2016 which did reveal some Wills's esophagus and I recommended a follow-up upper endoscopy within 2 years. EGD and colonoscopy was performed on 02/15/2019. Duodenal biopsies were unremarkable although she had some hypertrophic appearing mucosa. Gastric biopsy revealed reactive gastropathy. She did have a short segment of biopsy-proven intestinal metaplasia without dysplasia at the gastroesophageal junction. Colonoscopy revealed tubular adenoma x3. Patient is currently on Prilosec 40 mg daily. Of note, the patient is now on Eliquis. Performing Provider:: Matt Mohr MD Referring Provider:: Gabi Ibarra Sedation:: MAC sedation Procedure:: Patient was taken to endoscopy procedure room. She was positioned in lateral decubitus position. Adequate intravenous sedation was achieved with anesthesia titration of propofol. Olympus endoscope was inserted via the oropharynx and advanced through the esophagus. Overall esophagus appeared relatively unremarkable. Gastroesophageal junction was encountered approximately 35 cm from the incisors. There was possibly a short segment of Wills's noted at the gastroesophageal junction. Stomach was cannulated and insufflated. Retroflexion revealed small sliding hiatal hernia. Pylorus was traversed. Duodenal bulb and duodenal sweep appeared unremarkable. Endoscope was withdrawn into the stomach. Biopsies were obtained for CLOtest for H. pylori and for histopathologic analysis. Endoscope was withdrawn into the distal esophagus. Couple biopsies were obtained the gastroesophageal junction. Immediately proximal to this a couple of additional biopsies were obtained at the distal esophagus. Stomach was desufflated and the endoscope was withdrawn. Findings:: Possible short segment of Wills's esophagus Small hiatal hernia Recommendations:: Plan follow-up on histopathology. Treat H. pylori if positive. Continue proton pump inhibitors. If she does have Wills's without dysplasia likely repeat upper endoscopy in 2 years Complications:: None Estimated blood obtained (mL): 2
[2020-04-24 09:13] VITALS: BP 151/69; PULSE 59; RESP 18; O2SAT 97
[2020-04-24 09:23] VITALS: BP 122/64; PULSE 61; RESP 18; O2SAT 97
[2020-04-24 09:33] VITALS: BP 135/70; PULSE 60; RESP 18; O2SAT 97
== END 2020-04-24 10:11 | disposition home or self-care (01) ==
LOC: OUTP 07:28
PROVIDERS: PCP Internal Medicine Adolescent Medicine; Visit Provider Surgery
PROC: 0DJ08ZZ Inspection of Upper Intestinal Tract, Via Natural or Artificial Opening Endoscopic (ICD-10-PCS; CPT 43235; principal; 2020-04-24 08:30)
DX: K22.9 Disease of esophagus, unspecified (principal); K44.9 Diaphragmatic hernia without obstruction or gangrene; Z87.19 Personal history of other diseases of the digestive system; Z85.3 Personal history of malignant neoplasm of breast; J44.9 Chronic obstructive pulmonary disease, unspecified; I25.10 Atherosclerotic heart disease of native coronary artery without angina pectoris; K21.9 Gastro-esophageal reflux disease without esophagitis; E78.5 Hyperlipidemia, unspecified; I10 Essential (primary) hypertension; M19.90 Unspecified osteoarthritis, unspecified site; Z82.5 Family history of asthma and other chronic lower respiratory diseases; Z82.49 Family history of ischemic heart disease and other diseases of the circulatory system
CPT/HCPCS: 43239; 87339; 88305

== ENCOUNTER → 2020-07-03 11:26 | Outpatient (CLI) | payer MEDICARE, SELFPAY ==
[2020-07-03 12:18] LABS: Basophils % 0.4 % (0.1-2.0); Eosinophils # 0.1 K/mm3 (0.0-0.4); Eosinophils % 2.2 % (0.1-12.0); Hematocrit 37.7 % (37.0-47.0); Hemoglobin 12.6 g/dL (12.2-16.2); Lymphocytes # 1.2 K/mm3 (0.7-4.5); Lymphocytes % 34.8 % (10-50); Mean Corpuscular HGB Conc 33.4 g/dL (31.8-35.4); Mean Corpuscular Hemoglobin 30.7 pg (27.0-31.2); Mean Corpuscular Volume 91.7 fl (81-99); Mean Platelet Volume 8.4 fl (7.4-10.4); Monocytes # 0.2 K/mm3 (0.1-1.0); Monocytes % 7.1 % (1.7-9.3); Neutrophils # 1.9 K/mm3 (1.8-7.8); Neutrophils % 55.5 % (37.0-80.0); Platelet Count 268 K/mm3 (142-424); Red Blood Count 4.11 M/mm3 (4.20-5.40); White Blood Count 3.3 K/mm3 (4.8-10.8)
[2020-07-03 12:48] LABS: Chloride 94 mmol/L (98-107); Sodium 131 mmol/L (136-145)
[2020-07-03 12:49] LABS: Potassium 5.5 mmoL/L (3.5-5.1)
[2020-07-03 12:51] LABS: Alanine Aminotransferase 26 U/L (12-78); Albumin/Globulin Ratio 2.1 (1.1-1.8); Alkaline Phosphatase 96 U/L (38-126); Anion Gap 15.5 mEq/L (5-15); Aspartate Amino Transferase 41 U/L (14-36); Bilirubin,Total 0.7 mg/dl (0.2-1.3); Blood Urea Nitrogen 18 mg/dl (7-17); Calcium 9.5 mg/dl (8.4-10.2); Carbon Dioxide 27 mmol/L (22.0-30.0); Estimated Glomerular Filt Rate 56 ml/min (>60); GFR (African American) 67 ML/MIN (>60); Globulin 2.4 g/dL (1.3-3.2); Glucose 101 mg/dl (74-100); Iron 130 ug/dL (37-170); Total Protein,Serum 7.4 g/dl (6.3-8.2)
[2020-07-03 12:52] LABS: Magnesium 1.7 mg/dl (1.6-2.3)
[2020-07-03 13:01] LABS: Total Iron Binding Capacity 286 ug/dL (265-497)
== END ==
PROVIDERS: Visit Provider Internal Medicine Adolescent Medicine
DX: D63.8 Anemia in other chronic diseases classified elsewhere (principal); M62.838 Other muscle spasm
CPT/HCPCS: 36415; 80053; 83540; 83550; 83735; 85025

== ENCOUNTER 2020-10-20 06:00 | Emergency (ER) | payer MEDICARE, SELFPAY ==
[2020-10-20 06:04] VITALS: BMI 32.5
--- NOTE | 2020-10-20 06:05 | XR_ITS ---
PROCEDURE INFORMATION: Exam: XR Left Shoulder Exam date and time: 10/20/2020 6:05 AM Age: 65 years old Clinical indication: Injury or trauma; Fall; Blunt trauma (contusions or hematomas); Shoulder; Left TECHNIQUE: Imaging protocol: XR Left shoulder. Views: 2 or more views. COMPARISON: CR XR CHEST 2V 09/03/2019 9:43 AM FINDINGS: Bones/joints: Mildly displaced fracture greater tuberosity of LEFT humerus. Mild degenerative changes of acromioclavicular joint. No dislocation. Soft tissues: Unremarkable. IMPRESSION: LEFT proximal humeral fracture. Suggest CT for better delineation.
[2020-10-20 06:07] VITALS: BP 149/65; PULSE 75; RESP 18; TEMP 36.7; O2SAT 96; BMI 32.5
--- NOTE | 2020-10-20 06:08 | XR_ITS ---
PROCEDURE INFORMATION: Exam: XR Chest Exam date and time: 10/20/2020 6:08 AM Age: 65 years old Clinical indication: Injury or trauma; Fall; Blunt trauma (contusions or hematomas); Prior surgery TECHNIQUE: Imaging protocol: XR of the chest. Views: 2 views. COMPARISON: CR XR CHEST 2V 09/03/2019 9:43 AM FINDINGS: Lungs: No consolidation. Probable small RUL calcified granuloma. Pleural spaces: No significant pleural effusion. No pneumothorax. Heart/Mediastinum: No cardiomegaly. Atherosclerosis of thoracic aorta. Bones/joints: Fracture LEFT proximal humerus. Degenerative changes of spine. Prominent first costochondral junctions. Soft tissues: Unremarkable. IMPRESSION: No definite acute cardiopulmonary disease.
--- NOTE | 2020-10-20 06:08 | XR_ITS ---
PROCEDURE INFORMATION: Exam: XR Pelvis Exam date and time: 10/20/2020 6:08 AM Age: 65 years old Clinical indication: Injury or trauma; Fall; Blunt trauma (contusions or hematomas); Bilateral; Hip TECHNIQUE: Imaging protocol: XR pelvis. Views: 1 or 2 view. COMPARISON: No relevant prior studies available. FINDINGS: Bones/joints: No acute fracture. Degenerative changes of lower lumbar spine. No dislocation. Soft tissues: Unremarkable. IMPRESSION: No fracture. If pain persists, consider MRI to exclude occult fracture/internal derangement.
[2020-10-20 06:55] LABS: Basophils % 0.6 % (0.1-2.0); Eosinophils # 0.4 K/mm3 (0.0-0.4); Eosinophils % 5.4 % (0.1-12.0); Hematocrit 33.8 % (37.0-47.0); Hemoglobin 11.1 g/dL (12.2-16.2); Lymphocytes # 1.1 K/mm3 (0.7-4.5); Lymphocytes % 16.5 % (10-50); Mean Corpuscular HGB Conc 32.9 g/dL (31.8-35.4); Mean Corpuscular Hemoglobin 30.2 pg (27.0-31.2); Mean Corpuscular Volume 91.8 fl (81-99); Mean Platelet Volume 8.3 fl (7.4-10.4); Monocytes # 0.3 K/mm3 (0.1-1.0); Monocytes % 4.3 % (1.7-9.3); Neutrophils % 73.2 % (37.0-80.0); Platelet Count 277 K/mm3 (142-424); Red Blood Count 3.68 M/mm3 (4.20-5.40); Red Cell Distribution Width 13.3 % (11.5-17.5); White Blood Count 6.8 K/mm3 (4.8-10.8)
[2020-10-20 07:04] LABS: Alanine Aminotransferase 21 U/L (12-78); Albumin Level 4.2 g/dl (3.5-5.0); Albumin/Globulin Ratio 1.5 (1.1-1.8); Alkaline Phosphatase 102 U/L (38-126); Anion Gap 12.1 mEq/L (5-15); Aspartate Amino Transferase 28 U/L (14-36); Bilirubin,Total 0.4 mg/dl (0.2-1.3); Blood Urea Nitrogen 21 mg/dl (7-17); Calcium 8.8 mg/dl (8.4-10.2); Carbon Dioxide 28 mmol/L (22.0-30.0); Chloride 107 mmol/L (98-107); Creatinine Clearance Estimated 68 mL/min (50-200); Estimated Glomerular Filt Rate 63 ml/min (>60); GFR (African American) 76 ML/MIN (>60); Globulin 2.8 g/dL (1.3-3.2); Glucose 107 mg/dl (74-100); Potassium 4.1 mmoL/L (3.5-5.1); Sodium 143 mmol/L (136-145)
--- NOTE | 2020-10-20 07:06 | HMH.EDFALL ---
ED Disposition Clinical Impression: Shoulder fracture, left Qualifiers: Encounter type: initial encounter Fracture type: closed Qualified Code(s): S42.92XA - Fracture of left shoulder girdle, part unspecified, initial encounter for closed fracture Fall Qualifiers: Encounter type: initial encounter Qualified Code(s): W19.XXXA - Unspecified fall, initial encounter Disposition: Home, Self-Care Condition on Discharge: Good Instructions: DI for Shoulder Fracture Additional Instructions: ice and wear sling and see pcp and ortho for follow up Referrals: Edson Berkowitz MD [Primary Care Provider] - Leonel Molina MD [Staff Physician] - - Critical Care Critical Care Time: No Attestation: On 10/20/20, the high probability of a clinically significant, sudden or life threatening deterioration of the following system(s) required my full and direct attention, intervention and personal management. The time I documented below is in addition to time spent performing reported procedures but includes the following listed in this critical care notation. Medical Decision Making - Medical Records Medical records reviewed: Yes: I reviewed the patient's medical records. - Nate Inquiry Pt receiving controlled substance: No Vital Signs: 10/20/20 06:07 Temperature 98.1 F Temperature Source Oral Pulse Rate [Right Brachial] 75 Respiratory Rate 18 Blood Pressure [Right Arm] 149/65 H Blood Pressure Mean [Right Arm] 93 Blood Pressure Source [Right Arm] Automatic Cuff Blood Pressure Position [Right Arm] Sitting 02 Sat by Pulse Oximetry 96 Oxygen Delivery Method Room Air - Lab Data Lab results reviewed: Yes: I reviewed the patient's lab results. Lab Results 10/20/20 06:47: WBC 6.8, RBC 3.68 L, Hgb 11.1 L, Hct 33.8 L, MCV 91.8, MCH 30.2, MCHC 32.9, RDW 13.3, Plt Count 277, MPV 8.3, Neut % (Auto) 73.2, Lymph % (Auto) 16.5, [place] % (Auto) 4.3, Eos % (Auto) 5.4, Baso % (Auto) 0.6, Neut # (Auto) 5.0, Lymph # (Auto) 1.1, [place] # (Auto) 0.3, Eos # (Auto) 0.4, Baso # (Auto) 0.0 Result diagrams: 10/20/20 06:47 Orders (Tests/Meds): ED MEDICATIONS Generic Name Dose Route Start Last Admin Trade Name Freq PRN Reason Stop Dose Admin Sodium Chloride 1,000 mls @ 999 mls/hr 10/20/20 06:45 Sod Chlor 0.9% 1000ml Bag IV 10/20/20 07:45 .[id number] DELIA Discontinued Medications Generic Name Dose Route Start Last Admin Trade Name Freq PRN Reason Stop Dose Admin Fentanyl Citrate 250 mcg 10/20/20 06:34 Fentanyl 250mcg/5ml Vial IV 10/20/20 06:35 ONCE ONE Fentanyl Citrate 50 mcg 10/20/20 06:34 Fentanyl 250mcg/5ml Vial IV 10/20/20 06:35 ONCE ONE Ibuprofen 600 mg 10/20/20 06:12 10/20/20 06:12 Ibuprofen 600 Mg Tablet PO 10/20/20 06:13 600 mg ONCE ONE Administration Midazolam HCl 5 mg 10/20/20 06:34 Midazolam 5mg/Ml 1ml Vial IV 10/20/20 06:35 ONCE ONE ORDERS Category Date Time Status CMP [Comprehensive Metabolic Panel] Stat Lab 10/20/20 06:47 Received - Radiology Data #1 Image(s): Chest, Shoulder, Pelvis Image Reviewed: Yes I have reviewed radiologist's interpretation Preliminary Findings: Abnormal (fx humerus) Medical Decision Narrative: will place in sling and refer to ortho Fall HPI - General Chief Complaint: Fall Stated Complaint: Fall; Left shoulder pain Time Seen by Provider: 10/20/20 07:06 Mode of Arrival: Family Vehicle Source of Information: Patient, Medical Record Limitations: No Limitations Description of Symptoms (Recalled from ER Triage Doc. by RN): pt tried to get into her bed and missed the bed landing on her left hip and shoulder. pt denies pain anywhere but underneath my shoulder . moves left wrist/hand and forearm appropriately. - History of Present Illness HPI Narrative: fell out of bed this am with lt shoulder injury MD complaint: fall Onset (ago): hour(s) Fall from: out of bed Fall witnessed: yes, by family Place f
--- NOTE | 2020-10-20 07:39 | PC.NURSE ---
bernabe applied lt arm pt meme well.
[2020-10-20 07:40] VITALS: BP 134/84; PULSE 78; RESP 16; TEMP 36.6; O2SAT 98
== END 2020-10-20 07:41 | disposition home or self-care (01) ==
PROVIDERS: Emergency Provider Emergency Medicine; PCP Internal Medicine Adolescent Medicine
DX: S42.92XA Fracture of left shoulder girdle, part unspecified, initial encounter for closed fracture (principal); J44.9 Chronic obstructive pulmonary disease, unspecified; K21.9 Gastro-esophageal reflux disease without esophagitis; E78.5 Hyperlipidemia, unspecified; I25.10 Atherosclerotic heart disease of native coronary artery without angina pectoris; I10 Essential (primary) hypertension; Z87.891 Personal history of nicotine dependence; W01.0XXA Fall on same level from slipping, tripping and stumbling without subsequent striking against object, initial encounter; Y92.013 Bedroom of single-family (private) house as the place of occurrence of the external cause
CPT/HCPCS: 71046; 72170; 73030; 80053; 85025; 96374; 96375; 99284

== ENCOUNTER → 2020-10-24 11:57 | Outpatient (CLI) | payer MEDICARE, SELFPAY ==
--- NOTE | 2020-10-24 12:00 | CT_ITS ---
PROCEDURE: CT SHOULDER LT WO CON CLINICAL HISTORY: evaluate proximal humerus fx COMPARISON: CR XR SHOULDER LT MIN 2V from 10/20/2020 TECHNIQUE: Axial images obtained with sagittal and coronal reformats. All CT scans at the facility use one or more dose reduction, viz: automated exposure control, ma/kV adjustment per patient size (including targeted exams where dose is matched to indication, i.e. head), or iterative reconstruction technique. FINDINGS: There is and essentially nondisplaced fracture greater tuberosity extending into the surgical neck of the humerus. There is partial comminution of the greater tuberosity fracture. The distal clavicle and AC joint appear intact. The glenoid is intact. The soft tissues are normal. IMPRESSION: Fracture of the greater tuberosity and surgical neck of the humerus without significant displacement Dictated by: Dr. Keon Paiz MD 10/24/2020 13:45 Dr. Keon Paiz MD in [place] 10/24/2020 13:45
== END ==
PROVIDERS: PCP Internal Medicine Adolescent Medicine; Visit Provider Orthopaedic Surgery
DX: S42.92XA Fracture of left shoulder girdle, part unspecified, initial encounter for closed fracture (principal)
CPT/HCPCS: 73200

== ENCOUNTER → 2020-10-26 15:08 | Outpatient (CLI) | payer MEDICARE, SELFPAY ==
[2020-10-26 15:35] LABS: Basophils % 0.6 % (0.1-2.0); Eosinophils # 0.3 K/mm3 (0.0-0.4); Eosinophils % 5.3 % (0.1-12.0); Hemoglobin 10.8 g/dL (12.2-16.2); Lymphocytes # 1.1 K/mm3 (0.7-4.5); Lymphocytes % 17.3 % (10-50); Mean Corpuscular HGB Conc 32.7 g/dL (31.8-35.4); Mean Corpuscular Hemoglobin 30.1 pg (27.0-31.2); Mean Corpuscular Volume 92.2 fl (81-99); Mean Platelet Volume 8.8 fl (7.4-10.4); Monocytes # 0.2 K/mm3 (0.1-1.0); Monocytes % 3.7 % (1.7-9.3); Neutrophils # 4.7 K/mm3 (1.8-7.8); Platelet Count 305 K/mm3 (142-424); Red Blood Count 3.58 M/mm3 (4.20-5.40); Red Cell Distribution Width 13.5 % (11.5-17.5); White Blood Count 6.5 K/mm3 (4.8-10.8)
[2020-10-26 16:13] LABS: Alanine Aminotransferase 20 U/L (12-78); Albumin Level 4.2 g/dl (3.5-5.0); Albumin/Globulin Ratio 1.7 (1.1-1.8); Alkaline Phosphatase 94 U/L (38-126); Anion Gap 11.7 mEq/L (5-15); Aspartate Amino Transferase 29 U/L (14-36); Bilirubin,Total 0.6 mg/dl (0.2-1.3); Blood Urea Nitrogen 18 mg/dl (7-17); Calcium 8.9 mg/dl (8.4-10.2); Carbon Dioxide 32 mmol/L (22.0-30.0); Chloride 103 mmol/L (98-107); Estimated Glomerular Filt Rate 72 ml/min (>60); GFR (African American) 87 ML/MIN (>60); Globulin 2.5 g/dL (1.3-3.2); Glucose 100 mg/dl (74-100); Potassium 4.7 mmoL/L (3.5-5.1); Sodium 142 mmol/L (136-145); Total Protein,Serum 6.7 g/dl (6.3-8.2)
== END ==
PROVIDERS: Visit Provider Internal Medicine Adolescent Medicine
DX: E78.5 Hyperlipidemia, unspecified (principal)
CPT/HCPCS: 36415; 80053; 85025

== ENCOUNTER → 2020-11-01 11:55 | Outpatient (CLI) | payer MEDICARE, SELFPAY ==
--- NOTE | 2020-11-01 11:57 | XR_ITS ---
PROCEDURE: XR SHOULDER LT MIN 2V CLINICAL INDICATION: LT proximal humerus fx COMPARISON: CR XR SHOULDER LT MIN 2V from 10/20/[address] SHOULDER LT WO CON from 10/24/2020 FINDINGS: Avulsion fracture of the greater tuberosity once again noted only minimally displaced and overall not significantly changed from 10/20/2020 The joint spaces are well-preserved. No significant degenerative/arthritic changes. No erosive changes evident. Other findings:None. IMPRESSION: No change minimally displaced left the greater tuberosity fracture Dictated by: Zach Acevedo MD 11/01/2020 12:46 Zach Acevedo MD in [facility] 11/01/2020 12:46
== END ==
PROVIDERS: PCP Internal Medicine Adolescent Medicine; Visit Provider Orthopaedic Surgery
DX: S42.202A Unspecified fracture of upper end of left humerus, initial encounter for closed fracture (principal)
CPT/HCPCS: 73030

== ENCOUNTER → 2020-11-15 10:16 | Outpatient (CLI) | payer MEDICARE, SELFPAY ==
--- NOTE | 2020-11-15 10:20 | XR_ITS ---
PROCEDURE: XR SHOULDER LT MIN 2V CLINICAL INDICATION: LT proximal humerus FX COMPARISON: CR XR SHOULDER LT MIN 2V from 10/20/[address] SHOULDER LT WO CON from 10/24/2020 CR XR SHOULDER LT MIN 2V from 11/01/2020 FINDINGS: Nondisplaced fracture involves the left humeral neck with extension into the base of the greater tuberosity not significantly changed. The joint spaces are well-preserved. No significant degenerative/arthritic changes. No erosive changes evident. Other findings:None. IMPRESSION: No change left proximal humeral fracture with good alignment Dictated by: Zach Acevedo MD 11/15/2020 11:12 Zach Acevedo MD in [facility] 11/15/2020 11:12
== END ==
PROVIDERS: PCP Internal Medicine Adolescent Medicine; Visit Provider Orthopaedic Surgery
DX: S42.92XA Fracture of left shoulder girdle, part unspecified, initial encounter for closed fracture (principal)
CPT/HCPCS: 73030

== ENCOUNTER → 2020-12-06 11:33 | Outpatient (CLI) | payer MEDICARE, SELFPAY ==
--- NOTE | 2020-12-06 11:38 | XR_ITS ---
PROCEDURE: XR SHOULDER LT MIN 2V CLINICAL INDICATION: left proximal humerus fracture COMPARISON: CR XR SHOULDER LT MIN 2V from 10/20/2020 CR XR SHOULDER LT MIN 2V from 11/01/2020 CR XR SHOULDER LT MIN 2V from 11/15/2020 FINDINGS: No change healing proximal humeral fracture at the humeral neck with mild impaction of the fracture fragments. There is good alignment. IMPRESSION: Healing humeral neck fracture Dictated by: Zach Acevedo MD 12/06/2020 15:42 Zach Acevedo MD in [place] 12/06/2020 15:42
== END ==
PROVIDERS: PCP Internal Medicine Adolescent Medicine; Visit Provider Orthopaedic Surgery
DX: S42.202A Unspecified fracture of upper end of left humerus, initial encounter for closed fracture (principal)
CPT/HCPCS: 73030

== ENCOUNTER → 2020-12-25 09:12 | Outpatient (CLI) | payer MEDICARE, SELFPAY ==
--- NOTE | 2020-12-25 09:12 | XR_ITS ---
PROCEDURE: XR DEXA AXIAL SKELETON CLINICAL HISTORY: screening; post menopausal COMPARISON: No exams were available for comparison FINDINGS: The right hip BMD is 0.631 with a T-score of -2.0. The left hip BMD is 0.602 with a T-score of -2.2. Total L-spine density is 0.865 with a T-score -1.7. IMPRESSION: This patient is considered osteopenic according to the World Health Organization criteria. Bone density is between 10 and 25 percent below young normal. Fracture risk is moderate. Treatment is advised. Based on these results a follow-up exam is recommended in 2 year. Dictated by: Zach Acevedo MD 12/25/2020 18:02 Zach Acevedo MD in [place] 12/25/2020 18:02
== END ==
PROVIDERS: PCP Internal Medicine Adolescent Medicine; Visit Provider Orthopaedic Surgery
DX: Z78.0 Asymptomatic menopausal state (principal)
CPT/HCPCS: 77080

== ENCOUNTER 2020-12-27 11:00 | Outpatient (RCR) | payer MEDICARE, SELFPAY | END 2020-12-27 11:05 | disposition home or self-care (01) | LOC: PT 11:00 | PROVIDERS: PCP Internal Medicine Adolescent Medicine; Visit Provider Orthopaedic Surgery | DX: S42.92XD Fracture of left shoulder girdle, part unspecified, subsequent encounter for fracture with routine healing (principal) | CPT/HCPCS: 97014; 97016; 97110; 97140; 97163; G0283 ==

== ENCOUNTER → 2020-12-28 13:33 | Outpatient (CLI) | payer MEDICARE, SELFPAY ==
--- NOTE | 2020-12-28 13:34 | CA_ITS ---
APPROVED REPORT EXAM: Comprehensive 2D, Doppler, and color-flow Echocardiogram Media Intern: Maria G Huizar RVT Ht: 5 ft 1 in Wt: 177lbs BSA: 1.79 BP: 142/46 mmHg Indications: SOA,COPD,EDEMA,EX SMOKER,GERD,DIZZINESS,HTN,HLD 2D Dimensions LVOT 1.87 cm (M/F) 1.5-2.5 LA Volume 24.90 mL LA Volume Index 13.91 mL/m2 (M/F) 16-34 M-Mode Dimensions RVDd 1.71 cm (0.9-2.6) LA Diam 3.51 cm (1.9-4.0) LVDd 4.70 cm (3.5-5.7) Ao Diam 2.48 cm (2.0-3.7) LVDs 3.11 cm (3.5-5.7) IVSd 0.83 cm (0.6-1.1) PWd 0.76 cm (0.6-1.1) EF (Teich) 62.70% FS 33.80% EDV (Teich) 102.40 mL TAPSE 2.89 (<1.7) ESV (Teich) 38.20 mL LV Diastology E Decel Time 150.00 (160-240 msec) E/A Ratio 1.3 MED E' 7.30 (< 7 cm/sec) E'/MED E' Ratio 15.25 (>14) LAT E' 16.80 (<10 cm/sec) E/LAT E' Ratio 6.63 (>14) Aortic Valve AI PHT 1015.00 ms Mitral Valve MV E Max Howard. 111.00 (40-130 cm/s) MV A Velocity 86.00 (40-130 cm/s) E/A Ratio 1.29 MV Decel. Time 150.00 (160-240 ms) MV PHT 44.00 ms Pulmonary Valve PV Peak Velocity 95.00 (50-150 cm/s) Tricuspid Valve TR P. Velocity 231.00 cm/s RAP Estimate 10.00 mmHg RVSP 31.40 mmHg Left Ventricle Left atrium is mildly enlarged, left ventricle is normal size, mild concentric left ventricular hypertrophy, visually estimated ejection fraction 55% with no regional wall motion abnormality, diastolic parameters are inconclusive. Right Ventricle Right atrium and right ventricle mildly enlarged with normal contractility. Aortic Valve Aortic valve is minimally thickened and fibrosed, there is no aortic stenosis, there is mild aortic insufficiency. Mitral Valve Cardiovascular see normal, there is trace mitral regurgitation. Tricuspid Valve Tricuspid valve grossly normal, there is trace tricuspid regurgitation, tricuspid regurgitation jet velocity is inadequate for calculation of the right ventricular systolic pressure. Pulmonic Valve Pulmonic valve is poorly visualized. Great Vessels There is normal size. Inferior vena cava is mildly dilated with normal inspiratory collapse. Pericardium No significant pericardial effusion noted. Conclusion 1. Mild biatrial enlargement, normal left ventricular size, mild concentric left ventricular hypertrophy, visually estimated ejection fraction 55% with no regional wall motion abnormality, diastolic parameters of inconclusive. 2. Mild aortic, trace mitral and tricuspid regurgitation. 3. No significant pericardial effusion noted. 4. Inferior vena cava is mildly dilated with normal inspiratory collapse. Electronically signed by : Giorgio Parker MD 12/31/2020 21:45:52
== END ==
PROVIDERS: PCP Internal Medicine Adolescent Medicine; Visit Provider Urology
DX: E78.5 Hyperlipidemia, unspecified (principal); I10 Essential (primary) hypertension; I25.10 Atherosclerotic heart disease of native coronary artery without angina pectoris
CPT/HCPCS: 93306

== ENCOUNTER → 2021-01-21 10:53 | Outpatient (CLI) | payer MEDICARE, SELFPAY ==
--- NOTE | 2021-01-21 10:57 | XR_ITS ---
PROCEDURE: XR SHOULDER LT MIN 2V CLINICAL INDICATION: LT proximal humerus fx COMPARISON: CR XR SHOULDER LT MIN 2V from 10/20/2020 CR XR SHOULDER LT MIN 2V from 11/01/2020 CR XR SHOULDER LT MIN 2V from 11/15/2020 CR XR SHOULDER LT MIN 2V from 12/06/2020 FINDINGS: There is a healing left humeral neck fracture. The fracture line is less visible with some sclerosis. There is good alignment. There are mild osteoarthritic changes Other findings:None. IMPRESSION: Healing nondisplaced left humeral neck fracture Dictated by: Zach Acevedo MD 01/21/2021 11:26 Zach Acevedo MD in [place] 01/21/2021 11:26
== END ==
PROVIDERS: PCP Internal Medicine Adolescent Medicine; Visit Provider Orthopaedic Surgery
DX: S42.92XA Fracture of left shoulder girdle, part unspecified, initial encounter for closed fracture (principal)
CPT/HCPCS: 73030

== ENCOUNTER → 2021-02-06 10:25 | Outpatient (CLI) | payer MEDICARE, SELFPAY | PROVIDERS: PCP Internal Medicine Adolescent Medicine; Visit Provider Urology | DX: I48.91 Unspecified atrial fibrillation (principal) | CPT/HCPCS: 93270 ==

== ENCOUNTER → 2021-04-08 06:48 | Outpatient (CLI) | payer MEDICARE, SELFPAY ==
--- NOTE | 2021-04-08 06:49 | NM_ITS ---
APPROVED REPORT Exam: Nuclear Stress Test Indication: Chest pain, SOB, Palpitations, Fatigue, HTN, High cholesterol, Family history Patient Location: Outpatient Stress Tech: Kia López [place] Tech:Natasha Courtney, ARRT, RT (R)(N) Ht: 5 ft 1 in Wt: 194 lbs Bra Size: 36C HR: 63 bpm BP: 152/60 mmHg BSA: 1.86 m2 BMI: 36.6 History: Chest pain, SOB, Palpitations, Fatigue, HTN, High cholesterol, Family history Procedure: Patient received a 0.4 mg of intravenous Lexiscan, resting heart rate 63 bpm, resting blood pressure 152/60 mmHg, with Lexiscan maximum heart rate achived was 99 bpm which is Less than 85 % of the maximum predicted heart rate and blood pressure was 155/70 mmHg. With Lexiscan, patient denied any complaint of chest pain. Electrocardiogram Resting electrocardiogram shows sinus rhythm nonspecific ST-T changes, with Lexiscan there is less than 1.[address] segment depression noted from the baseline EKG. The EKG portion of the Lexiscan is nondiagnostic. Cardiac Stress and Resting SPECT Images: Cardiac Stress and Resting SPECT images were obtained using technetium 99m Myoview 30.5 mCi stress and 10.93 mCi at rest. Gated SPECT for analysis of segmental wall motion and calculation of the ejection fraction also done. Cardiac stress and resting SPECT images show a fixed defect in the anterior wall with normal contractility on the gated SPECT is likely secondary to soft tissue attenuation, no reversible ischemia seen, computer derived ejection fraction is 63% with no regional wall motion abnormality, right ventricle is normal size and contractility. Conclusion: 1. The EKG portion of the Lexiscan is nondiagnostic. 2. No scintigraphic evidence of reversible ischemia seen, fixed defect in the anterior wall is likely secondary to soft tissue attenuation. Compared right ejection fraction is 63% with no regional wall motion abnormality, right ventricle is normal size and contractility. 3. Likely normal Lexiscan Myoview study. Electronically signed by : Giorgio Parker MD 04/08/2021 13:19:53
--- NOTE | 2021-04-08 06:49 | CA_ITS ---
APPROVED REPORT Exam: Pharmacologic Technologist: Kia López, Ht: 5 ft 1 in Wt: 194 lbs BSA: 1.86 m2 HR: 56 bpm BP: 152/60 mmHg Medical History Medications: Lisinopril,,,,, Omeprazole,,,,, Aspirin,,,,, Vitamin B12,,,,, Vitamin D3,,,,, Atorvastatin,,,,, SyMBICORT,,,,, Albuterol,,,,, Baclofen,,,,, Vitamin D2,,,,, Apixaban,,,,, Multivitamin,,,,, Stress Test Details Test: LEXISCAN HR Resting HR: 63 bpm Max Heart Rate (APMHR): 154.919642 bpm Max HR Achieved: 99 bpm Target HR (85% APMHR): 130.319787 bpm % of APMHR: 64.29 Recovery HR: 72 bpm BP Resting BP: 152/60 mmHg Max BP: 155/70 mmHg Recovery BP: 142.0/63.0 mmHg ECG Resting ECG: Sinus Rhythm with intermitten A-fib Clinical Exercise duration: 04:05 min Highest Stage Achieved: Exercise capacity: 1.0 METs Stress ECG Conclusion Lexiscan protocol completed. C/O SOB during peak exercise. Symptoms: no CP (+) SOB during peak infusion. Resolved in recovery. Arrhythmias/Ectopy: Occ PAC Occ PV ST-T Changes: Less than 1.5mm ST Depression Conclusion: Images to follow Test Summary REST 04:09 . . 63 . 152/ 60 . . Stage 1 01:00 . . 99 . . . . Stage 2 01:00 . . 89 . 155/ 70 . . Stage 3 01:00 . . 83 . . . . Stage 4 01:00 . . 82 . 155/ 68 . . Stage 4 01:05 . . 80 . 133/ 66 . Stop exercise at 04:05 RECOVERY 01:00 . . 72 . . . . RECOVERY 02:00 . . 73 . 143/ 68 . . RECOVERY 03:00 . . 72 . 142/ 63 . . RECOVERY 03:18 . . 72 . 142/ 63 . . Electronically signed by : Giorgio Parker MD 04/08/2021 12:39:14
--- NOTE | 2021-04-08 08:47 | HMH.ITSHM ---
Current Home Medications as stated by this patient Norah Carlisle or customer service representative. []SPIRONOLACTONE OMEPRAZOLE METOPROLOL LISINOPRIL LEVOCETIRIZINE FUROSEMIDE DIMETHYL DILTIAZEM BUDESONIDE ATORVASTATIN ASA APIXABAN ANASTROZOLE ALBUTEROL MULTIVITAMIN MECOBALAMIN VITAMIN D2 CALTRATE
== END ==
LOC: RAD 06:49
PROVIDERS: PCP Internal Medicine Adolescent Medicine; Visit Provider Urology
DX: E78.2 Mixed hyperlipidemia (principal); I10 Essential (primary) hypertension; I25.10 Atherosclerotic heart disease of native coronary artery without angina pectoris; I48.0 Paroxysmal atrial fibrillation; R07.9 Chest pain, unspecified; R60.9 Edema, unspecified
CPT/HCPCS: 78452; 93017; A9502; J2785

== ENCOUNTER → 2021-04-10 09:57 | Outpatient (CLI) | payer MEDICARE, SELFPAY ==
[2021-04-10 12:14] LABS: Anion Gap 13.1 mEq/L (5-15); Blood Urea Nitrogen 39 mg/dl (7-17); Calcium 9.6 mg/dl (8.4-10.2); Carbon Dioxide 27 mmol/L (22.0-30.0); Chloride 102 mmol/L (98-107); Estimated Glomerular Filt Rate 50 ml/min (>60); GFR (African American) 60 ML/MIN (>60); Glucose 111 mg/dl (74-100); Potassium 5.1 mmoL/L (3.5-5.1); Sodium 137 mmol/L (136-145)
== END ==
PROVIDERS: Visit Provider Urology
DX: E78.2 Mixed hyperlipidemia (principal); I10 Essential (primary) hypertension; I25.10 Atherosclerotic heart disease of native coronary artery without angina pectoris; I48.0 Paroxysmal atrial fibrillation; R60.9 Edema, unspecified
CPT/HCPCS: 36415; 80048

== ENCOUNTER 2021-05-15 18:18 | Emergency (ER) | payer MEDICARE, SELFPAY ==
[2021-05-15 19:36] VITALS: BP 141/62; PULSE 81; RESP 18; TEMP 36.9; O2SAT 97; BMI 34.3
--- NOTE | 2021-05-15 19:50 | HMH.EDUTC ---
[facility] [place] Disposition Clinical Impression: Nausea Disposition: Home, Self-Care Condition on Discharge: Good Instructions: DI for Nausea -- Adult, Combating Dizziness in Older Adults, Vertigo, Dizziness, Nonvertigo Additional Instructions: Make sure to be eating small meals until nausea improved and make sure to keep yourself hydrated If you dizziness returns or worsens follow up immediately with Cardiology or your Family Doctor Straight to the ER if any life threatening symptoms, confusion, worsening of dizziness, irregular heart rate, palpations etc Return if needed Prescriptions: Ondansetron [Zofran 4mg ODT] 4 mg PO TIDP PRN #6 tab PRN Reason: Nausea Transmission Status: Pending to [id number] Referrals: Edson Berkowitz MD [Primary Care Provider] - As needed Time of Disposition: 20:27 Medical Decision Making - Nate Inquiry Pt receiving controlled substance: No Nate was queried for this patient: No Vital Signs: 05/15/21 19:36 Temperature 98.4 F Temperature Source Oral Pulse Rate [Left] 81 Respiratory Rate 18 Blood Pressure [Right Arm] 141/62 H Blood Pressure Mean [Right Arm] 88 02 Sat by Pulse Oximetry 97 Orders (Tests/Meds): ED MEDICATIONS Discontinued Medications Generic Name Dose Route Start Last Admin Trade Name Freq PRN Reason Stop Dose Admin Ondansetron HCl 4 mg 05/15/21 20:01 05/15/21 20:08 Ondansetron 4mg Odt SL 05/15/21 20:02 4 mg ONCE ONE Administration Medical Decision Narrative: Patient states that she is feeling better after zofran Patient up walking around room without difficulty Discussed with patient about transfer to the ED for further work up and evaluation due to past medical history and patient declined States that she is ready to go home and eat something and she would follow up with Cardiology or her PCP if symptoms returned or worsened Patient educated to go straight the ER if any life threatening symptoms and again recommended transfer as these symptoms could be serious and even and patient still declined states she wanted to go home an eat something [facility] [place] HPI - General Stated complaint: upset stomach, no appetite, sweaty Time Seen by Provider: 05/15/21 19:50 Mode of Arrival: Ambulatory Source of Information: Patient Limitations: No Limitations Description of Symptoms (Recalled from Triage Doc. by RN): pt c/o nausea and dizziness. HEENT Symptoms (Recalled from RN notes): No Resp Symptoms (Recalled from RN notes): No Skin Symptoms (Recalled from RN notes): No MS Symptoms (Recalled from RN notes): No Functional Status (Recalled from RN notes): wnl - History of Present Illness Provider Complaint: Patient states that she was at home earlier and was eating and noticed when she turned her head it made her feel swimmy headed and she had some nausea States that she checked her FSBS and it was normal, checked her blood pressure and checked her heart rhythm on her watch and it was normal but she continued to have a little dizziness and nausea at times when she would change positions or turn her head too quickly Denies cp, denies confusion, denies feeling of heart racing States that she feels better now just still having a little nausea - Related Data Home Medications Medication Instructions Recorded Confirmed albuterol sulfate 90 mcg/actuation 1 puff INHALATION Q6H 05/25/17 04/24/21 aerosol inhaler anastrozole 1 mg tablet 1 mg PO ONCE 05/25/17 04/24/21 baclofen 20 mg tablet 20 mg PO Q8H 05/25/17 04/24/21 budesonide-formoterol HFA 160 2 inh INHALATION Q12H 05/25/17 04/24/21 mcg-4.5 mcg/actuation aerosol inhaler dimethyl fumarate 240 mg 240 mg PO BID 05/25/17 04/24/21 capsule,delayed release Heriberto/D3/Mag11/Zinc/Service Technician Copier/Ivan/Bor 1 each PO DAILY 06/01/17 04/24/21 [Caltrate 600+D Plus Tablet] Ergocalciferol (Vitamin D2) 400 unit PO DAILY 06/01/17 04/24/21 [Vitamin D] Multivitamin/Iron/Folic Acid 1 each PO DAILY 06/01/17
[2021-05-15 20:40] VITALS: BP 141/62; PULSE 81; RESP 18; TEMP 36.9
[2021-05-20 10:53] LABS: Adenovirus,PCR Not Detected (NotDetected); Bordetella Pertussis Not Detected (NotDetected); Chlamydophila Pneumoniae, PCR Not Detected (NotDetected); Coronavirus 19, PCR Not Detected (NotDetected); Coronavirus 229E Not Detected (NotDetected); Coronavirus NL63 Not Detected (NotDetected); Coronavirus OC43 Not Detected (NotDetected); Coronovirus HKU1,PCR Not Detected (NotDetected); Human Metapneumovirus Not Detected (NotDetected); Influenza A, PCR Not Detected (NotDetected); Influenza AH1, 2009 Not Detected (NotDetected); Influenza AH1, PCR Not Detected (NotDetected); Influenza AH3,PCR Not Detected (NotDetected); Influenza B, PCR Not Detected (NotDetected); Mycoplasma Pneumoniae, PCR Not Detected (NotDetected); Parainfluenza 1, PCR Not Detected (NotDetected); Parainfluenza 2, PCR Not Detected (NotDetected); Parainfluenza 3, PCR Not Detected (NotDetected); Parainfluenza 4, PCR Not Detected (NotDetected); Respiratory Syncytial Virus Not Detected (NotDetected); Rhinovirus/Enterovirus Not Detected (NotDetected)
== END 2021-05-15 20:40 | disposition home or self-care (01) ==
PROVIDERS: Emergency Provider Nurse Practitioner; PCP Internal Medicine Adolescent Medicine
DX: R42 Dizziness and giddiness (principal); R11.0 Nausea; J44.9 Chronic obstructive pulmonary disease, unspecified; I25.10 Atherosclerotic heart disease of native coronary artery without angina pectoris; K21.9 Gastro-esophageal reflux disease without esophagitis; I10 Essential (primary) hypertension; E78.5 Hyperlipidemia, unspecified; Z20.822 Contact with and (suspected) exposure to COVID-19; Z87.891 Personal history of nicotine dependence
CPT/HCPCS: 87581; 87632; 87798; 99202; C9803; G0463; U0003; U0005

== ENCOUNTER 2021-05-23 07:59 | Day surgery (SDC) | payer MEDICARE, SELFPAY ==
[2021-05-23 08:46] VITALS: BMI 34.7
[2021-05-23 09:01] VITALS: BP 134/69; PULSE 75; PULSE 76; RESP 20; TEMP 36.6; O2SAT 97
[2021-05-23 09:42] VITALS: PULSE 70
[2021-05-23 09:44] VITALS: BP 121/65; PULSE 71; RESP 19; O2SAT 95
[2021-05-23 09:45] VITALS: BP 121/65; PULSE 71; RESP 20; O2SAT 97
--- NOTE | 2021-05-23 11:03 | P.PCN_ITS ---
[facility] Loop Recorder Date: 05/23/21 Time: 09:30 Procedure Performed:: Implantation of loop recorder Indication:: Palpitations, near syncope Technique:: Patient was brought to the cardiac Cutter Grind Tool Technician. After informed consent obtained, 1% lidocaine with epinephrine was used to anesthetize the site along the left anterior aspect of the chest near the sternal border. Using the preformed scalpel, an incision was made and using the supplied preloaded apparatus, the loop recorder was placed subcutaneously without difficulty. Following the deployment of the loop recorder interrogation of the device was performed to ensure appropriate voltage was being detected. Once this was verified, Steri- Strips were placed over the incision and the patient was prepped to discharge home. Patient tolerated the procedure well with minimal discomfort. Impression:: Successful implantation of loop recorder Serial Number:: AdventEnna [id number] Lux-[id number] Serial #[id number] Plan:: Routine postop care
== END 2021-05-23 10:07 | disposition home or self-care (01) ==
LOC: CATHLAB 08:00
PROVIDERS: PCP Internal Medicine Adolescent Medicine; Visit Provider Internal Medicine
DX: R42 Dizziness and giddiness (principal); R00.2 Palpitations; I25.10 Atherosclerotic heart disease of native coronary artery without angina pectoris; I48.0 Paroxysmal atrial fibrillation; I10 Essential (primary) hypertension; G35 Multiple sclerosis; R06.02 Shortness of breath; Z79.899 Other long term (current) drug therapy
CPT/HCPCS: 33285

== ENCOUNTER → 2021-08-28 10:31 | Outpatient (CLI) | payer MEDICARE, SELFPAY ==
[2021-08-28 11:18] LABS: Basophils % 0.6 % (0.1-2.0); Eosinophils # 0.1 K/mm3 (0.0-0.4); Eosinophils % 2.1 % (0.1-12.0); Hematocrit 31.4 % (37.0-47.0); Hemoglobin 10.2 g/dL (12.2-16.2); Lymphocytes # 1.2 K/mm3 (0.7-4.5); Lymphocytes % 22.9 % (10-50); Mean Corpuscular HGB Conc 32.5 g/dL (31.8-35.4); Mean Corpuscular Hemoglobin 30.7 pg (27.0-31.2); Mean Corpuscular Volume 94.7 fl (81-99); Mean Platelet Volume 9.4 fl (7.4-10.4); Monocytes # 0.3 K/mm3 (0.1-1.0); Monocytes % 5.7 % (1.7-9.3); Neutrophils # 3.5 K/mm3 (1.8-7.8); Neutrophils % 68.5 % (37.0-80.0); Platelet Count 323 K/mm3 (142-424); Red Blood Count 3.31 M/mm3 (4.20-5.40); Red Cell Distribution Width 13.6 % (11.5-17.5); White Blood Count 5.1 K/mm3 (4.8-10.8)
[2021-08-28 11:36] LABS: Alanine Aminotransferase 21 U/L (12-78); Albumin Level 4.2 g/dl (3.5-5.0); Alkaline Phosphatase 109 U/L (38-126); Anion Gap 13.8 mEq/L (5-15); Aspartate Amino Transferase 29 U/L (14-36); Bilirubin,Unconjugated 0.3 mg/dL (0.0-1.1); Blood Urea Nitrogen 24 mg/dl (7-17); Calcium 9.4 mg/dl (8.4-10.2); Carbon Dioxide 26 mmol/L (22.0-30.0); Chloride 103 mmol/L (98-107); Chol/HDL Ratio 3.6 (1-3.5); Cholesterol 170 mg/dl (140-200); Estimated Glomerular Filt Rate 50 ml/min (>60); GFR (African American) 60 ML/MIN (>60); Glucose 104 mg/dl (74-100); HDL Cholesterol 47 mg/dl (40-60); Magnesium 1.7 mg/dl (1.6-2.3); Potassium 4.8 mmoL/L (3.5-5.1); Sodium 138 mmol/L (136-145); Total Protein,Serum 6.7 g/dl (6.3-8.2); Triglycerides 145 mg/dl (30-150); VLDL Cholesterol 29 mg/dL (0-40)
[2021-08-28 11:40] LABS: Bilirubin,Total < 0.1 mg/dl (0.2-1.3)
[2021-08-28 11:47] LABS: Direct LDL Cholesterol 79.03 mg/dL (100-129)
[2021-08-28 11:52] LABS: Free T4 (Free Thyroxine) 1.16 ng/dl (0.78-2.19)
[2021-08-28 12:06] LABS: Thyroid Stimulating Hormone 2.51 uIU/mL (0.465-4.68)
[2021-08-28 14:37] LABS: Bilirubin,Direct 0.1 mg/dl (0.0-0.4); Bilirubin,Indirect 0.3 mg/dL (0.0-0.9)
== END ==
PROVIDERS: Visit Provider Nurse Practitioner Family
DX: E78.2 Mixed hyperlipidemia (principal); I10 Essential (primary) hypertension; I25.10 Atherosclerotic heart disease of native coronary artery without angina pectoris; I49.1 Atrial premature depolarization; R06.02 Shortness of breath; R60.0 Localized edema; Z95.818 Presence of other cardiac implants and grafts; I48.0 Paroxysmal atrial fibrillation
CPT/HCPCS: 36415; 80048; 80061; 80076; 83735; 84439; 84443; 85025

== ENCOUNTER 2021-08-31 23:13 | Emergency (ER) | payer MEDICARE, SELFPAY ==
[2021-08-31 23:16] VITALS: BP 149/72; PULSE 95; RESP 18; TEMP 36.8; O2SAT 96; BMI 35.9
[2021-09-01 00:08] VITALS: BP 0/0; PULSE 0; RESP 0; TEMP -17.7; TEMP 0
== END 2021-09-01 00:09 | disposition left against medical advice (07) ==
LOC: ER 23:23
PROVIDERS: Emergency Provider Emergency Medicine; PCP Internal Medicine Adolescent Medicine
DX: Z53.21 Procedure and treatment not carried out due to patient leaving prior to being seen by health care provider (principal)
CPT/HCPCS: 99211

== ENCOUNTER → 2021-10-02 08:52 | Outpatient (CLI) | payer MEDICARE, SELFPAY | PROVIDERS: PCP Internal Medicine Adolescent Medicine; Visit Provider Surgery | DX: Z01.812 Encounter for preprocedural laboratory examination (principal); Z20.822 Contact with and (suspected) exposure to COVID-19; Z13.810 Encounter for screening for upper gastrointestinal disorder; Z12.11 Encounter for screening for malignant neoplasm of colon | CPT/HCPCS: C9803; U0003; U0005 ==

== ENCOUNTER 2021-10-04 09:24 | Day surgery (SDC) | payer MEDICARE, SELFPAY ==
[2021-09-27 16:00] VITALS: BMI 35.9
[2021-10-04 09:55] VITALS: BP 133/56; PULSE 83; RESP 20; TEMP 37.2; O2SAT 94
--- NOTE | 2021-10-04 09:55 | HMH.ANESCL ---
[facility] Anesthesia Checklist - Patient Identification Patient Identification: Arm Band - Structural Data Admitted From: Home Planned Operative Procedure/s: EGD/Colonoscopy Consent for Planned Operative Procedure(s) Verified: Yes - NPO Status Verified Time NPO: 06:30 (Prep) - Additional verifications Anesthesia Reactions: No - Airway Assessment C-Spine Mobility Assessed: Yes TMJ Mobility Assessed: Yes Dentition: Dentures-good fit - Neurological Assessment Level of Consciousness: Awake Hx Seizures: No Numbness or tingling in extremities: No - Anesthesia Plan Anesthesia Risk discussed: Yes Anesthesia Plan: Verified ASA Class: III Anesthesia Type: [facility] History I have reviewed the patient's past medical history: Yes Medical History: Reports:: Atrial Fibrillation, Cancer (breast), Chronic Obstructive Pulmonary Disease (COPD), Coronary Artery Disease, Gastroesophageal Reflux Disease(GERD), Hyperlipidemia, Hypertension, Lung Disease Denies:: Diabetes Mellitus Type 1, Diabetes Mellitus Type 2, Internal Pacemaker, MRSA, Seizures *Have you ever received a pneumonia vaccine?: Yes *Have you received a flu vaccine this season?: Yes Other Medical History: Reports: Arthritis Anesthesia experience/problems:: None Laterality Cases: Left: Lumpectomy, Bilateral: Breast Biopsy, Other Other Surgeries: Yes: No Previous Surgery, Cancer Surgery, Cardiac Catheterization, Colonoscopy, EGD, Hysterectomy-Total, Tubal Ligation. No: Pacemaker Amputation: No Fractures: Yes - *Social History Last grade of school completed: 11th or 12th Smoking Status: Never smoker Tobacco Type: cigarettes # Packs/Day (cigarettes): 1 Alcohol Intake: never Alcohol Intake Frequency:: other Substance Use Type: denies use *Occupational Status:: retired, disabled Housing: house Household Members: spouse *Travel in the last 8 weeks: None Family Hx:: Asthma, Cancer, Diabetes, Heart Attack, Hyperlipidemia, Hypertension, Kidney Disease, Stroke, Substance abuse
--- NOTE | 2021-10-04 10:23 | HMH.GSHP ---
HPI HPI: Patient presents for colonoscopy and EGD due to symptoms of recurrent rectal bleeding and history of Wills's. She is a 66-year-old female with history of atrial fibrillation on Eliquis. I had seen her years ago for hemorrhoid problems characterized by bleeding. This resolved with conservative management. She also does have a history of Wills's esophagus diagnosed by EGD. She describes symptoms of recurrent painless rectal bleeding. She states that sometimes it pours out of me . She states that she thought that I was going to bleed out . She had presented to the emergency department and was told to stop her Eliquis. She states that the bleeding resolved. Of note, she is due for follow-up surveillance EGD for history of Wills's and colonoscopy due to history of adenomatous polyps. Her last colonoscopy was on 02/15/2019 at which time she had tubular adenoma x3. [facility] History I have reviewed the patient's past medical history: Yes Medical History: Reports:: Atrial Fibrillation, Cancer (breast), Chronic Obstructive Pulmonary Disease (COPD), Coronary Artery Disease, Gastroesophageal Reflux Disease(GERD), Hyperlipidemia, Hypertension, Lung Disease Denies:: Diabetes Mellitus Type 1, Diabetes Mellitus Type 2, Internal Pacemaker, MRSA, Seizures *Have you ever received a pneumonia vaccine?: Yes *Have you received a flu vaccine this season?: Yes Other Medical History: Reports: Arthritis Anesthesia experience/problems:: None Laterality Cases: Left: Lumpectomy, Bilateral: Breast Biopsy, Other Other Surgeries: Yes: No Previous Surgery, Cancer Surgery, Cardiac Catheterization, Colonoscopy, EGD, Hysterectomy-Total, Tubal Ligation. No: Pacemaker Amputation: No Fractures: Yes - *Social History Last grade of school completed: 11th or 12th Smoking Status: Never smoker Tobacco Type: cigarettes # Packs/Day (cigarettes): 1 Alcohol Intake: never Alcohol Intake Frequency:: other Substance Use Type: denies use *Occupational Status:: retired, disabled Housing: house Household Members: spouse *Travel in the last 8 weeks: None Family Hx:: Asthma, Cancer, Diabetes, Heart Attack, Hyperlipidemia, Hypertension, Kidney Disease, Stroke, Substance abuse Review of Systems - Review of Systems Review of systems:: pertinent systems reviewed and negative unless documented below Meds Home Medications Medication Instructions Recorded Confirmed Type albuterol sulfate 90 mcg/actuation 1 puff INHALATION Q6H 05/25/10/04/21 History aerosol inhaler baclofen 20 mg tablet 20 mg PO Q8H 05/25/17 10/04/21 History budesonide-formoterol HFA 160 2 inh INHALATION Q12H 05/25/17 10/04/21 History mcg-4.5 mcg/actuation aerosol inhaler Heriberto/D3/Mag11/Zinc/Digital [employer]ns[employer] Examiner/Ivan/Bor 1 each PO DAILY 06/01/17 10/04/21 History [Caltrate 600+D Plus Tablet] Ergocalciferol (Vitamin D2) 400 unit PO DAILY 06/01/17 10/04/21 History [Vitamin D] Multivitamin/Iron/Folic Acid 1 each PO DAILY 06/01/17 10/04/21 History [Centrum Complete Multivit Tab] aspirin 81 mg chewable tablet 81 mg PO DAILY 03/09/20 10/04/21 History Mecobalamin [B12 Active] 1,000 mcg PO DAILY 03/27/20 10/04/21 History levocetirizine 5 mg tablet 5 mg PO DAILY tab 12/26/20 10/04/21 History ondansetron 4 mg disintegrating 4 mg PO TIDP PRN #6 tab 05/21/21 10/04/21 Rx tablet omeprazole 40 mg capsule,delayed 40 mg PO DAILY #90 cap 05/22/21 10/04/21 Rx release Atorvastatin Calcium [Lipitor 40mg 40 mg PO DAILY 09/27/21 10/04/21 History Tab] Furosemide [Furosemide 40MG tAB*] 40 mg PO DAILY 09/27/21 10/04/21 History Hydrocortisone Acetate 25 mg RC BID 09/27/21 10/04/21 History Metoprolol Succinate [Metoprolol 100 mg PO DAILY 09/27/21 10/04/21 History Succinate 100mg Tablet*] Rivaroxaban [Xarelto] 15 mg PO DAILY 09/27/21 10/04/21 History Spironolactone [Spironolactone 25 mg PO DAILY 09/27/21 10/04/21 History 25mg Tablet] lisinopriL [Lisinopril] 10 mg PO DAILY 09/27/21 10/04/21 History
[2021-10-04 10:37] VITALS: O2SAT 97
[2021-10-04 11:18] VITALS: BP 84/38; PULSE 79; RESP 16; TEMP 36.4; O2SAT 96
--- NOTE | 2021-10-04 11:20 | HMH.SCOPE ---
- Procedure: Date: 10/04/21 Patient Date of :: 1955 Procedure Performed:: Esophagogastroduodenoscopy with biopsies Total colonoscopy with polypectomy using snare and biopsy forceps Indications:: Patient presents for colonoscopy and EGD due to symptoms of recurrent rectal bleeding and history of Wills's. She is a 66-year-old female with history of atrial fibrillation on Eliquis. I had seen her years ago for hemorrhoid problems characterized by bleeding. This resolved with conservative management. She also does have a history of Wills's esophagus diagnosed by EGD. She describes symptoms of recurrent painless rectal bleeding. She states that sometimes it pours out of me . She states that she thought that I was going to bleed out . She had presented to the emergency department and was told to stop her Eliquis. She states that the bleeding resolved. Of note, she is due for follow-up surveillance EGD for history of Wills's and colonoscopy due to history of adenomatous polyps. Her last colonoscopy was on 02/15/2019 at which time she had tubular adenoma x3. Performing Provider:: Matt Mohr MD Referring Provider:: Edson Berkowitz MD Sedation:: MAC sedation Procedure:: Patient was taken to endoscopy procedure room. She was positioned in lateral decubitus position. Adequate intravenous sedation was achieved. Attention was first turned to upper endoscopy. Olympus endoscope was inserted via the oropharynx. Esophagus was cannulated with. Endoscope was advanced to the gastroesophageal junction which was noted at approximately 35 cm. Stomach was cannulated and insufflated. Retroflexion was performed which revealed moderate sliding hiatal hernia. There was proximal gastric fundic gland polyp. She has some diffuse gastropathy. Gastric antral biopsy was obtained for histopathologic analysis. Pylorus was traversed. Duodenum appeared unremarkable. Additional biopsy was obtained in the fundus. Biopsy was obtained of the presumed gastric fundic gland polyp. A couple biopsies were obtained at the gastroesophageal junction to evaluate Wills's. Stomach was desufflated and the endoscope was withdrawn. Next attention was turned to colonoscopy. Digital examination was performed. She did have circumferential hemorrhoids with hemorrhoid in the right posterior lateral location showing some inflammation in minor excoriation. Likely source of intermittent bleeding. Variable stiffness Olympus colonoscope was inserted via the anus. It was advanced to the cecum. Ileocecal valve and appendiceal orifice were clearly identified. There was some particulate stool within the right colon but this was cleared. There was noted to be a couple of very tiny diminutive likely early adenomatous appearing polyps in the region of the cecum. These measured about 1 mm. These were removed with cold biopsy forceps. Colonoscope was withdrawn through the colon. In the sigmoid colon there was a tiny adenomatous appearing polyp removed with cold snare. The rectosigmoid region there was a tiny hyperplastic appearing polyp removed with biopsy forceps. She did have some moderate sigmoid diverticulosis. Retroflexion within the rectum revealed internal hemorrhoids. Colonoscope was withdrawn. Findings:: Gastroesophageal junction at 35 cm Possible Wills's esophagus Sliding hiatal hernia Presumed fundic gland polyps Mild gastropathy Diminutive right-sided colon polyp x2, approximately 1 mm Sigmoid diverticulosis Small sigmoid polyp Probable hyperplastic rectosigmoid polyp Hemorrhoids with most notable hemorrhoid in the right posterior lateral location which showed some excoriation and inflammation Recommendations:: Plan to follow-up on biopsies regarding her Wills's esophagus history. Continue proton pump inhibitors. Regarding the adenomatous polyps follow-up colonoscopy will be pending pathology (likely 3 to 5 years). Regarding her r
--- NOTE | 2021-10-04 11:25 | PC.NURSE ---
1118- anesthesia aware of BP
[2021-10-04 11:28] VITALS: BP 85/37; PULSE 78; RESP 16; O2SAT 96
[2021-10-04 11:38] VITALS: BP 150/68; PULSE 88; RESP 16; O2SAT 97
[2021-10-04 11:48] VITALS: BP 153/80; PULSE 81; RESP 16; O2SAT 97
== END 2021-10-04 11:48 | disposition home or self-care (01) ==
LOC: OUTP 09:25
PROVIDERS: PCP Internal Medicine Adolescent Medicine; Visit Provider Surgery
PROC: 0DJ08ZZ Inspection of Upper Intestinal Tract, Via Natural or Artificial Opening Endoscopic (ICD-10-PCS; CPT 43235; principal; 2021-10-04 10:30)
DX: K22.70 Barrett's esophagus without dysplasia; K62.5 Hemorrhage of anus and rectum; K63.5 Polyp of colon; K21.9 Gastro-esophageal reflux disease without esophagitis; J44.9 Chronic obstructive pulmonary disease, unspecified; I48.91 Unspecified atrial fibrillation; I25.10 Atherosclerotic heart disease of native coronary artery without angina pectoris; Z85.3 Personal history of malignant neoplasm of breast; E78.5 Hyperlipidemia, unspecified; I10 Essential (primary) hypertension; Z79.899 Other long term (current) drug therapy
CPT/HCPCS: 43239; 45380; 45385; 88305; J2704

== ENCOUNTER 2021-10-29 10:06 | Emergency (ER) | payer MEDICARE, SELFPAY ==
[2021-10-29 10:33] VITALS: BP 152/62; PULSE 112; RESP 20; TEMP 36.9; O2SAT 95; BMI 26.4
--- NOTE | 2021-10-29 10:34 | HMH.EDUTC ---
[facility] [place] Disposition Clinical Impression: Viral syndrome, Bronchitis Disposition: Home, Self-Care Condition on Discharge: Good Instructions: DI for Viral Syndrome, DI for COVID-19 (Suspected or Confirmed ), Preventing the Spread of Coronavirus Discharge Instructions Additional Instructions: Drink plenty of fluids. Take tylenol or ibuprofen for pain or fever. Take the medications as directed. Follow up with your regular doctor. GO TO THE ER FOR ANY WORSENING SYMPTOMS Quarantine until you know the results of your covid-19 test. Notify your school or workplace of your results and follow their instructions regarding return to work/school. Prescriptions: Ondansetron [Zofran 4mg ODT] 4 mg PO Q8HP PRN #12 tab PRN Reason: Nausea Transmission Status: Received by [id number] Benzonatate [Benzonatate 100mg cap] 100 mg PO TIDP PRN #30 cap PRN Reason: Cough Transmission Status: Received by [id number] Cefdinir [Omnicef 300mg Capsule] 300 mg PO BID #20 cap Transmission Status: Received by [id number] Referrals: Edson Berkowitz MD [Primary Care Provider] - Time of Disposition: 11:26 Medical Decision Making - Medical Records Medical records reviewed: No: I reviewed the patient's medical records. - Nate Inquiry Pt receiving controlled substance: No Vital Signs: 10/29/21 10:33 10/29/21 11:31 Temperature 98.4 F 98.4 F Temperature Source Oral Pulse Rate 112 H Pulse Rate [Left] 112 H Respiratory Rate 20 20 Blood Pressure 152/62 H Blood Pressure [Right Arm] 152/62 H Blood Pressure Mean [Right Arm] 92 02 Sat by Pulse Oximetry 95 - Lab Data Lab Results 10/29/21 10:48: Strep [facility] Negative Orders (Tests/Meds): ORDERS Category Date Time Status Strep Screen Confirmation Stat Micro 10/29/21 10:48 Received [facility] [place] HPI - General Stated complaint: elevated bp, runny nose, fever, cough Time Seen by Provider: 10/29/21 10:34 - History of Present Illness Provider Complaint: She c/o chest and sinus congestion, elevated b/p and feeling bad since yesterday - Related Data Home Medications Medication Instructions Recorded Confirmed albuterol sulfate 90 mcg/actuation 1 puff INHALATION Q6H 05/25/17 10/04/21 aerosol inhaler baclofen 20 mg tablet 20 mg PO Q8H 05/25/17 10/04/21 budesonide-formoterol HFA 160 2 inh INHALATION Q12H 05/25/17 10/04/21 mcg-4.5 mcg/actuation aerosol inhaler Heriberto/D3/Mag11/Zinc/Shoe Caser/Ivan/Bor 1 each PO DAILY 06/01/17 10/04/21 [Caltrate 600+D Plus Tablet] Ergocalciferol (Vitamin D2) 400 unit PO DAILY 06/01/17 10/04/21 [Vitamin D] Multivitamin/Iron/Folic Acid 1 each PO DAILY 06/01/17 10/04/21 [Centrum Complete Multivit Tab] aspirin 81 mg chewable tablet 81 mg PO DAILY 03/09/20 10/04/21 Mecobalamin [B12 Active] 1,000 mcg PO DAILY 03/27/20 10/04/21 levocetirizine 5 mg tablet 5 mg PO DAILY tab 12/26/20 10/04/21 Atorvastatin Calcium [Lipitor 40mg 40 mg PO DAILY 09/27/21 10/04/21 Tab] Furosemide [Furosemide 40MG tAB*] 40 mg PO DAILY 09/27/21 10/04/21 Hydrocortisone Acetate 25 mg RC BID 09/27/21 10/04/21 Metoprolol Succinate [Metoprolol 100 mg PO DAILY 09/27/21 10/04/21 Succinate 100mg Tablet*] Rivaroxaban [Xarelto] 15 mg PO DAILY 09/27/21 10/04/21 Spironolactone [Spironolactone 25 mg PO DAILY 09/27/21 10/04/21 25mg Tablet] lisinopriL [Lisinopril] 10 mg PO DAILY 09/27/21 10/04/21 Previous Rx's Medication Instructions Recorded ondansetron 4 mg disintegrating 4 mg PO TIDP PRN #6 tab 05/21/21 tablet omeprazole 40 mg capsule,delayed 40 mg PO DAILY #90 cap 05/22/21 release hydrocortisone 2.5 % topical cream 1 applic RC QD-BID PRN #30 g 10/04/21 with perineal applicator Benzonatate [Benzonatate 100mg 100 mg PO TIDP PRN #30 cap 10/29/21 cap] Cefdinir [Omnicef 300mg Capsule] 300 mg PO BID #20 cap 10/29/21 Ondansetron [Zofran 4mg ODT] 4 mg PO Q8HP PRN #12 tab 07/
[2021-10-29 10:54] LABS: UTC Strep Screen (Rapid) Negative (Negative)
--- NOTE | 2021-10-29 11:10 | XR_ITS ---
FINAL REPORT CLINICAL HISTORY: cough, congestion FINDINGS: PA and lateral views of the chest are obtained. There is no prior exam for comparison. The cardiac and mediastinal silhouettes are within normal limits. There is evidence of prior granulomatous disease. The lungs are otherwise clear. There is no pleural effusion, pneumothorax, or acute osseous abnormality. IMPRESSION: No radiographic evidence of acute cardiac or pulmonary disease. Reviewed, Interpreted and Dictated by Mariia Edgar MD Transcribed by Amaris Vega Authenticated and [facility]
[2021-10-29 11:31] VITALS: BP 152/62; PULSE 112; RESP 20; TEMP 36.9
== END 2021-10-29 11:33 | disposition home or self-care (01) ==
PROVIDERS: Emergency Provider Nurse Practitioner Family; PCP Internal Medicine Adolescent Medicine
DX: B34.9 Viral infection, unspecified (principal); R07.9 Chest pain, unspecified; R42 Dizziness and giddiness; R20.2 Paresthesia of skin; Z20.822 Contact with and (suspected) exposure to COVID-19; I10 Essential (primary) hypertension; I25.10 Atherosclerotic heart disease of native coronary artery without angina pectoris; I48.91 Unspecified atrial fibrillation; K21.9 Gastro-esophageal reflux disease without esophagitis; E78.5 Hyperlipidemia, unspecified; G35 Multiple sclerosis; J98.4 Other disorders of lung; J44.9 Chronic obstructive pulmonary disease, unspecified; Z79.01 Long term (current) use of anticoagulants; Z79.51 Long term (current) use of inhaled steroids; Z79.82 Long term (current) use of aspirin; Z79.899 Other long term (current) drug therapy; Z88.8 Allergy status to other drugs, medicaments and biological substances; Z82.49 Family history of ischemic heart disease and other diseases of the circulatory system; Z83.438 Family history of other disorder of lipoprotein metabolism and other lipidemia; Z84.1 Family history of disorders of kidney and ureter; Z83.3 Family history of diabetes mellitus; Z80.9 Family history of malignant neoplasm, unspecified; Z81.3 Family history of other psychoactive substance abuse and dependence
CPT/HCPCS: 71046; 87880; 99213; C9803; G0463; U0003; U0005

== ENCOUNTER → 2021-11-25 16:00 | Outpatient (CLI) | payer MEDICARE, SELFPAY ==
--- NOTE | 2021-11-25 16:08 | XR_ITS ---
FINAL REPORT TECHNIQUE: Chest PA & Lateral CLINICAL HISTORY: ACUTE COUGH, PERIPHERAL EDEMA COMPARISON: October 29, 2021 FINDINGS: 2 views of the chest were performed. A loop recording device is present in the left hemithorax. The heart size is at the upper limits of normal. The mediastinum is within normal limits. There is no acute cardiopulmonary process. There are chronic changes in both lungs. There are no pleural effusions. There is no pneumothorax. The bony thorax appears intact. IMPRESSION: No acute cardiopulmonary process. Reviewed, Interpreted and Dictated by Cal Canales MD Transcribed by Olive Pickens Authenticated and [facility]
== END ==
LOC: RAD 16:01
PROVIDERS: PCP Nurse Practitioner Family; Visit Provider Nurse Practitioner Family
DX: R05.1 Acute cough (principal); R60.9 Edema, unspecified
CPT/HCPCS: 71046

== ENCOUNTER → 2021-12-02 09:12 | Outpatient (CLI) | payer MEDICARE, SELFPAY ==
[2021-12-02 10:06] LABS: Basophils # 0.1 K/mm3 (0-0.2); Basophils % 0.8 % (0.1-2.0); Eosinophils # 0.3 K/mm3 (0.0-0.4); Eosinophils % 3.6 % (0.1-12.0); Hematocrit 32.6 % (37.0-47.0); Hemoglobin 9.8 g/dL (12.2-16.2); Lymphocytes # 1.4 K/mm3 (0.7-4.5); Lymphocytes % 20.2 % (10-50); Mean Corpuscular HGB Conc 30.1 g/dL (31.8-35.4); Mean Corpuscular Hemoglobin 28.8 pg (27.0-31.2); Mean Corpuscular Volume 95.6 fl (81-99); Mean Platelet Volume 9.3 fl (7.4-10.4); Monocytes # 0.4 K/mm3 (0.1-1.0); Monocytes % 5.6 % (1.7-9.3); Neutrophils # 4.7 K/mm3 (1.8-7.8); Neutrophils % 69.8 % (37.0-80.0); Platelet Count 402 K/mm3 (142-424); Red Blood Count 3.41 M/mm3 (4.20-5.40); Red Cell Distribution Width 14.8 % (11.5-17.5); White Blood Count 6.8 K/mm3 (4.8-10.8)
[2021-12-02 10:35] LABS: Anion Gap 11.8 mEq/L (5-15); Blood Urea Nitrogen 32 mg/dl (7-17); Calcium 9.5 mg/dl (8.4-10.2); Carbon Dioxide 29 mmol/L (22.0-30.0); Chloride 100 mmol/L (98-107); Estimated Glomerular Filt Rate 41 ml/min (>60); GFR (African American) 49 ML/MIN (>60); Glucose 100 mg/dl (74-100); Potassium 4.8 mmoL/L (3.5-5.1); Sodium 136 mmol/L (136-145)
[2021-12-02 10:43] LABS: NT Pro Brain Natriuretic Pep. 221 pg/mL (0-125)
== END ==
PROVIDERS: PCP Nurse Practitioner Family; Visit Provider Physician Assistant
DX: E78.2 Mixed hyperlipidemia (principal); I10 Essential (primary) hypertension; I25.10 Atherosclerotic heart disease of native coronary artery without angina pectoris; I48.0 Paroxysmal atrial fibrillation; R06.02 Shortness of breath
CPT/HCPCS: 36415; 80048; 83735; 83880; 85025

== ENCOUNTER 2022-02-04 08:53 | Outpatient (RCR) | payer MEDICARE, SELFPAY | END 2022-02-04 08:55 | disposition home or self-care (01) | LOC: PT 08:53 | PROVIDERS: PCP Nurse Practitioner Family; Visit Provider Physical Medicine & Rehabilitation | DX: M54.40 Lumbago with sciatica, unspecified side (principal) | CPT/HCPCS: 97110; 97163; 97535 ==

== ENCOUNTER → 2022-05-27 12:11 | Outpatient (CLI) | payer MEDICARE, SELFPAY ==
[2022-05-27 12:51] LABS: Basophils % 0.5 % (0.1-2.0); Eosinophils # 0.2 K/mm3 (0.0-0.4); Eosinophils % 3.7 % (0.1-12.0); Hematocrit 35.8 % (37.0-47.0); Hemoglobin 11.4 g/dL (12.2-16.2); Lymphocytes # 1.7 K/mm3 (0.7-4.5); Lymphocytes % 28.8 % (10-50); Mean Corpuscular HGB Conc 31.9 g/dL (31.8-35.4); Mean Corpuscular Hemoglobin 28.6 pg (27.0-31.2); Mean Corpuscular Volume 89.5 fl (81-99); Mean Platelet Volume 8.1 fl (7.4-10.4); Monocytes # 0.3 K/mm3 (0.1-1.0); Monocytes % 4.6 % (1.7-9.3); Neutrophils # 3.7 K/mm3 (1.8-7.8); Neutrophils % 62.5 % (37.0-80.0); Platelet Count 301 K/mm3 (142-424); Red Cell Distribution Width 15.7 % (11.5-17.5); White Blood Count 5.9 K/mm3 (4.8-10.8)
[2022-05-27 14:26] LABS: Chloride 110 mmol/L (98-107); Sodium 142 mmol/L (136-145)
[2022-05-27 14:27] LABS: Potassium 4.4 mmoL/L (3.5-5.1)
[2022-05-27 14:29] LABS: Blood Urea Nitrogen 21 mg/dl (7-17); Estimated Glomerular Filt Rate 45 ml/min (>60); GFR (African American) 54 ML/MIN (>60)
[2022-05-27 14:30] LABS: Anion Gap 11.4 mEq/L (5-15); Calcium 8.4 mg/dl (8.4-10.2); Carbon Dioxide 25 mmol/L (22.0-30.0); Glucose 104 mg/dl (74-100)
== END ==
PROVIDERS: PCP Nurse Practitioner Family; Visit Provider Nurse Practitioner Family
DX: I10 Essential (primary) hypertension (principal); N18.31 Chronic kidney disease, stage 3a
CPT/HCPCS: 36415; 80048; 85025

== ENCOUNTER → 2022-08-04 06:10 | Outpatient (CLI) | payer MEDICARE, SELFPAY ==
--- NOTE | 2022-08-04 06:11 | CA_ITS ---
FINAL REPORT CLINICAL HISTORY: HTN,EX-SMOKER,OBESITY FINDINGS: Aorta velocity: 175 cm/sec Right kidney: 10.7 cm. No evidence of hydronephrosis or mass. Right intrarenal RI: 0.75 Right renal artery velocity: 259 cm/sec. Right RAR (Renal artery-Aortic Ratio): 1.5 Left Kidney: 10.7 cm. No evidence of hydronephrosis or mass. Left intrarenal RI: 0.84 Left renal artery velocity: 204 cm/sec. Left RAR (Renal Artery-Aortic Ratio): 1.8 IMPRESSION: No evidence of significant renal artery stenosis. CT angiogram or postcontrast MR angiogram would be more sensitive for evaluation of possible renal artery stenosis. Reviewed, Interpreted and Dictated by Cal Canales MD Transcribed by Noemí Parnell Authenticated and . [facility]
--- NOTE | 2022-08-04 06:11 | US_ITS ---
FINAL REPORT TECHNIQUE: Sonographic images were obtained of the retroperitoneum. CLINICAL HISTORY: I25.10 - Atherosclerotic heart disease of stebbins coronary... FINDINGS: The right kidney measures 10.1 cm. The left kidney measures 11.5 cm. There is a 3.5 x 2.9 cm anechoic structure in the right kidney consistent with a cyst. There is no hydronephrosis. The spleen measures 9.3 cm. IMPRESSION: Right renal cyst. Reviewed, Interpreted and Dictated by Cal Canales MD Transcribed by Sergio Cardenas Authenticated and [facility]
== END ==
LOC: RAD 06:11
PROVIDERS: PCP Internal Medicine Adolescent Medicine; Visit Provider Physician Assistant
DX: E78.2 Mixed hyperlipidemia (principal); G35 Multiple sclerosis; I10 Essential (primary) hypertension; I25.10 Atherosclerotic heart disease of native coronary artery without angina pectoris; I48.0 Paroxysmal atrial fibrillation; R06.02 Shortness of breath; R07.89 Other chest pain; Z95.818 Presence of other cardiac implants and grafts
CPT/HCPCS: 76770; 78452; 93017; 93976; A9502; J2785

== ENCOUNTER → 2022-12-17 08:52 | Outpatient (CLI) | payer MEDICARE, SELFPAY ==
[2022-12-17 09:43] LABS: Basophils % 0.5 % (0.1-2.0); Eosinophils # 0.3 K/mm3 (0.0-0.4); Eosinophils % 4.8 % (0.1-12.0); Hematocrit 36.2 % (37.0-47.0); Hemoglobin 11.5 g/dL (12.2-16.2); Lymphocytes # 1.5 K/mm3 (0.7-4.5); Lymphocytes % 28.2 % (10-50); Mean Corpuscular HGB Conc 31.7 g/dL (31.8-35.4); Mean Corpuscular Volume 91.4 fl (81-99); Monocytes # 0.3 K/mm3 (0.1-1.0); Monocytes % 4.8 % (1.7-9.3); Neutrophils # 3.4 K/mm3 (1.8-7.8); Neutrophils % 61.7 % (37.0-80.0); Platelet Count 270 K/mm3 (142-424); Red Blood Count 3.96 M/mm3 (4.20-5.40); Red Cell Distribution Width 14.2 % (11.5-17.5); White Blood Count 5.5 K/mm3 (4.8-10.8)
[2022-12-17 10:32] LABS: Alanine Aminotransferase 25 U/L (12-78); Albumin Level 4.4 g/dl (3.5-5.0); Albumin/Globulin Ratio 1.6 (1.1-1.8); Alkaline Phosphatase 159 U/L (38-126); Anion Gap 16.2 mEq/L (5-15); Aspartate Amino Transferase 33 U/L (14-36); Bilirubin,Total 0.4 mg/dl (0.2-1.3); Blood Urea Nitrogen 20 mg/dl (7-17); Calcium 9.2 mg/dl (8.4-10.2); Carbon Dioxide 24 mmol/L (22.0-30.0); Chloride 105 mmol/L (98-107); Chol/HDL Ratio 4.9 (1-3.5); Cholesterol 221 mg/dl (140-200); Estimated Glomerular Filt Rate 55 ml/min (>60); GFR (African American) 67 ML/MIN (>60); Globulin 2.8 g/dL (1.3-3.2); Glucose 105 mg/dl (74-100); HDL Cholesterol 45 mg/dl (40-60); Potassium 4.2 mmoL/L (3.5-5.1); Sodium 141 mmol/L (136-145); Total Protein,Serum 7.2 g/dl (6.3-8.2); Triglycerides 283 mg/dl (30-150); VLDL Cholesterol 57 mg/dL (0-40)
[2022-12-17 11:18] LABS: Ferritin 33.3 ng/ml (11.1-264)
[2022-12-17 11:38] LABS: Vitamin B12 940 pg/mL (239-931)
[2022-12-17 11:56] LABS: Folate > 20.00 ng/mL
== END ==
PROVIDERS: PCP Nurse Practitioner Family; Visit Provider Nurse Practitioner Family
DX: E78.2 Mixed hyperlipidemia (principal); D63.8 Anemia in other chronic diseases classified elsewhere
CPT/HCPCS: 36415; 80053; 80061; 82607; 82728; 82746; 85025

== ENCOUNTER 2024-01-26 08:37 | Outpatient (CLI) | payer MEDICARE, SELFPAY ==
--- NOTE | 2024-01-26 08:40 | XR_ITS ---
FINAL REPORT CLINICAL HISTORY: screening FINDINGS: Using L1-4, the bone mineral density of the spine is 0.932 g/cm2, corresponding to T-score of -1.0. Using the left hip, the bone mineral density of the femoral neck is 0.645 g/cm2, corresponding to a T-score of -1.8. Using the right hip: The bone mineral density of the femoral neck is 0.644 g/cm2, corresponding to a T-score of -1.9. FRAX 10 year fracture risk is 16% for a hip fracture and 2.6% for a major osteoporotic fracture. IMPRESSION: Normal bone mineral density of the lumbar spine. Osteopenic bone mineral density of the bilateral hips. NOTE: T-score: Standard deviation compared with peak bone mass of young adult mean. *Following the recommendations of the International Society of Bone densitometry, classification of hip BMD is based on the lower of two T-scores; total hip or femoral neck. Reviewed, Interpreted and Dictated by Cal Canales MD Transcribed by Noemí Parnell Authenticated and [facility]
== END 2024-01-26 23:59 | disposition home or self-care (01) ==
LOC: RAD 08:38
PROVIDERS: PCP Nurse Practitioner Family; Visit Provider Nurse Practitioner Family
DX: Z78.0 Asymptomatic menopausal state (principal)
CPT/HCPCS: 77080

== ENCOUNTER 2024-03-17 12:22 | Outpatient (CLI) | payer MEDICARE, SELFPAY ==
--- NOTE | 2024-03-17 12:28 | XR_ITS ---
FINAL REPORT CLINICAL HISTORY: PAIN AND COUGH COMPARISON: 11/25/2021 FINDINGS: CHEST 2 VIEWS PA AND LATERAL The heart is normal in size. The mediastinum is unremarkable. The lungs are clear. An implantable loop recorder device is present. There is no pneumothorax. IMPRESSION: No acute process. Reviewed, Interpreted and Dictated by Matt Zapata III, MD Transcribed by Norah Lopes Authenticated and [facility]
== END 2024-03-17 23:59 | disposition home or self-care (01) ==
LOC: RAD 12:24
PROVIDERS: PCP Nurse Practitioner Family; Visit Provider Nurse Practitioner Family
DX: R07.89 Other chest pain (principal); R05.3 Chronic cough
CPT/HCPCS: 71046

== ENCOUNTER 2024-07-15 07:52 | Day surgery (SDC) | payer MEDICARE, SELFPAY ==
[2024-07-15 07:54] VITALS: BMI 30.2
[2024-07-15 08:13] VITALS: BP 166/79; PULSE 64; RESP 20; O2SAT 93
[2024-07-15] MEDS: CEFAZOLIN SODIUM 1 GM in 0.9 % SODIUM CHLORIDE 50 ML IV (08:22)
[2024-07-15] MEDS: LIDOCAINE 2% W/EPI 1:100,000 20ML VIAL 20 ML SUBCUT (08:22)
[2024-07-15 10:18] VITALS: BP 166/70; PULSE 89; RESP 20; TEMP 36.6; O2SAT 96
--- NOTE | 2024-08-02 12:38 | P.PCN_ITS ---
[facility] Procedure Note Date: 08/02/24 Time: 08:00 Procedure Note:: Procedure: Loop recorder removal : Fransico Bryan Patient presented outpatient to Water Control Supervisor for loop recorder removal. After informed consent was obtained the skin was cleansed and anesthetized for procedure. A 10 blade scalpel was used for incision and loop recorder was removed using forceps without difficulty. Edges were approximated and closed using Dermabond and Steri-Strips. Patient tolerated procedure well without complications. Dictated by Trever Smith for Maria Teresa Bryan MD.
== END 2024-07-15 10:30 | disposition home or self-care (01) ==
PROVIDERS: PCP Nurse Practitioner Family; Visit Provider Internal Medicine
DX: Z45.09 Encounter for adjustment and management of other cardiac device (principal); I48.0 Paroxysmal atrial fibrillation; I25.10 Atherosclerotic heart disease of native coronary artery without angina pectoris; E78.5 Hyperlipidemia, unspecified; Z79.899 Other long term (current) drug therapy; G35 Multiple sclerosis; I11.0 Hypertensive heart disease with heart failure; I50.30 Unspecified diastolic (congestive) heart failure
CPT/HCPCS: 33286; J0690

== ENCOUNTER 2024-07-21 07:07 | Outpatient (CLI) | payer MEDICARE, SELFPAY ==
--- NOTE | 2024-07-21 | CA_ITS ---
APPROVED REPORT Exam: Pharmacologic Technologist: Tamara Frias Ht: 5 ft 1 in Wt: 161 lbs BSA: 1.72 m2 Medical History Medications: vitamin C, aspirin, atorvastatin, hydrocortisone, loratadine, vitamin B-12, melatonin, omeprazole, metamucil, tamulosin Stress Test Details Test: Lexiscan Reason for pharmacologic stress test: physical limitation. HR Resting HR: 60 bpm Max Heart Rate (APMHR): 150 bpm Max HR Achieved: 117 bpm Target HR (85% APMHR): 128 bpm % of APMHR: 78 Recovery HR: 88 bpm BP Resting BP: 167.0/64.0 mmHg Max BP: 171.0/81.0 mmHg Recovery BP: 151.0/74.0 mmHg ECG Resting ECG: SR. PSVT Stress ECG Conclusion Symptoms: Mild SOA, GAR. Arrhythmias/Ectopy: PVC, multifocal. ST-T Changes: Lexiscan. Electronically signed by : Thao Cedeño MD 07/24/2024 21:56:41
--- NOTE | 2024-07-21 07:30 | NM_ITS ---
APPROVED REPORT Exam: Nuclear Stress Test Indication: cp..soa..fatigue..a-fib Patient Location: Outpatient Stress Tech: Kia López [place] Tech:SHAQ Zapien RT(R)(N) Ht: 5 ft 1 in Wt: 160 lbs Bra Size: large HR: 60 bpm BP: 167/74 mmHg BSA: 1.72 m2 TID: 1.07 BMI: 30.2 History: cp..soa..fatigue..a-fib Procedure: Patient received 0.4 mg of intravenous Lexiscan, resting heart rate 60 bpm, resting blood pressure 167/74 mmHg, with Lexiscan maximum heart rate achieved was 104 bpm which is 85 % of the maximum predicted heart rate and blood pressure was 167/71 mmHg. With Lexiscan, patient denied any complaint of chest pain. Cardiac Stress and Resting SPECT Images: Cardiac Stress and Resting SPECT images were obtained using technetium 99m Myoview 29.6 mCi stress and 10.49 mCi at rest. Resting and stress imaging in supine and prone positions demonstrate a medium sized, moderate, partially reversible perfusion defect in the mid to distal anterior and anteroapical LV vizcaino. Gated imaging demonstrates normal global LV systolic function. LVEF is calculated at 54%. Conclusion: Medium sized, moderate, partially reversible perfusion defect in the mid to distal anterior and anteroapical LV vizcaino. Findings are suggestive of partial reversible ischemia. Gated imaging demonstrates normal global LV systolic function. LVEF is calculated at 54%. Electronically signed by : Thao Cedeño MD 07/24/2024 21:47:17
[2024-07-21] MEDS: REGADENOSON 0.4MG/5ML SYRINGE 0.4 MG IV (11:15)
[2024-07-21] MEDS: ISOTOPE MYOVIEW (PER STUDY) 1 DOSE IV (11:16)
[2024-07-21] MEDS: SODIUM CHLORIDE 0.9% 10ML SYR (RAD ONLY) 10 ML IV ×2 (11:16)
== END 2024-07-21 23:59 | disposition home or self-care (01) ==
LOC: RAD 07:08
PROVIDERS: PCP Nurse Practitioner Family; Visit Provider Nurse Practitioner Family
DX: R07.89 Other chest pain (principal)
CPT/HCPCS: 78452; 93017; 93018; A9502; J2785

== ENCOUNTER 2024-07-29 07:50 | Day surgery (SDC) | payer MEDICARE, SELFPAY ==
[2024-07-29] VITALS (12 sets, daily range): BP systolic 144–200; BP diastolic 57–88; PULSE 61–75; RESP 16–20; TEMP 36.9; O2SAT 93–99; BMI 30.6
--- NOTE | 2024-07-29 07:22 | IR_ITS ---
APPROVED REPORT Patient Location: Outpatient PROCEDURES Left heart catheterization Left ventriculogram Selective coronary angiogram INDICATION Abnormal Myoview, Angina pectoris Informed consent was obtained prior to the procedure. COMPLICATIONS NONE Estimated Blood Loss: LESS THAN 10 ML TECHNIQUE One percent lidocaine used to anesthetize the right anterior aspect of the wrist. The right radial artery was accessed via the Seldinger technique. A 6 Romansh sheath was placed in the right radial artery. 2.5 mg of Verapamil, 800 mcg of nitroglycerin, 1mg Lidocaine and 5000 U Heparin were given through the arterial sheath. The 6 Romansh JL 3 guide catheter was also used to perform left heart catheterization, left ventriculogram and selective coronary angiogram. At the end of the procedure the sheath was removed good hemostasis was achieved using Traclet band, patient was transferred to the postop holding area in stable condition. ANGIOGRAPHIC RESULTS The left main artery Normal The left anterior descending artery Proximally normal with mid vessel 30% stenoses. The mid to distal LAD is highly tortuous The circumflex artery Small nondominant normal The right coronary artery Large dominant with a proximal smooth 30% concentric stenosis The BRITO ventriculogram reveals Normal 65% The left ventricular end-diastolic pressure 10 mmHg IMPRESSION Mild coronary artery disease as described above Normal ejection fraction Normal LVEDP PLAN 1. Medical management Electronically signed by : Arpit Bryan MD 07/29/2024 09:46:32
[2024-07-29 08:36] LABS: Basophils % 0.6 % (0.1-2.0); Eosinophils # 0.3 Kmm3 (0.0-0.4); Eosinophils % 4.2 % (0.1-12.0); Hematocrit 34.6 % (37.0-47.0); Hemoglobin 11.2 g/dL (12.2-16.2); Lymphocytes % 31.8 % (10-50); Mean Corpuscular HGB Conc 32.4 g/dL (31.8-35.4); Mean Corpuscular Volume 92.8 fl (81-99); Monocytes # 0.5 K/mm3 (0.1-1.0); Monocytes % 7.3 % (1.7-9.3); Neutrophils # 3.5 K/mm3 (1.8-7.8); Neutrophils % 55.9 % (37.0-80.0); Nucleated Red Blood Cells # 0 10^3/uL; Nucleated Red Blood Cells % 0 %; Platelet Count 267 K/mm3 (142-424); Red Blood Count 3.73 M/mm3 (4.20-5.40); Red Cell Distribution Width-SD 44.2 fL; White Blood Count 6.2 K/mm3 (4.8-10.8)
[2024-07-29 08:41] LABS: Chloride 109 mmol/L (98-107)
[2024-07-29 08:42] LABS: Potassium 4.2 mmoL/L (3.5-5.1); Sodium 140 mmol/L (136-145)
[2024-07-29 08:45] LABS: Anion Gap 8.2 mEq/L (5-15); Blood Urea Nitrogen 17 mg/dl (7-17); Calcium 8.8 mg/dl (8.4-10.2); Carbon Dioxide 27 mmol/L (22.0-30.0); Creatinine Clearance Estimated 61 mL/min (50-200); Estimated Glomerular Filt Rate 71 ml/min (>60); GFR (African American) 86 ML/MIN (>60); Glucose 97 mg/dl (74-100)
[2024-07-29] MEDS: HEPARIN 1,000 UNITS/ML 10ML VIAL (CATH LAB) 5000 UNIT IV (09:15)
[2024-07-29] MEDS: LIDOCAINE 1% 10ML MDV 10 ML IJ (09:15)
[2024-07-29] MEDS: 0.9 % SODIUM CHLORIDE 500 ML 25 ML IV (09:15)
[2024-07-29] MEDS: HEPARIN 1,000 UNITS/500ML NS (CATH LAB) 3000 UNIT IV (09:15)
[2024-07-29] MEDS: diphenhydrAMINE 50MG/ML VIAL 50 MG IV (09:16)
[2024-07-29] MEDS: VERAPAMIL 2.5MG/ML 2ML VIAL 2.5 MG IV (09:16)
[2024-07-29] MEDS: MIDAZOLAM HCL 1MG/ML 5ML VIAL 1 MG IV (09:43)
[2024-07-29] MEDS: FENTANYL 100MCG/2ML VIAL 50 MCG IV (09:43)
[2024-07-29] MEDS: IOPAMIDOL-370 (76%);100ML BOTTLE 50 ML IV (10:15)
== END 2024-07-29 13:10 | disposition home or self-care (01) ==
PROVIDERS: PCP Internal Medicine Adolescent Medicine; Visit Provider Internal Medicine
DX: I25.118 Atherosclerotic heart disease of native coronary artery with other forms of angina pectoris (principal); R93.1 Abnormal findings on diagnostic imaging of heart and coronary circulation; R07.89 Other chest pain; I10 Essential (primary) hypertension; E78.5 Hyperlipidemia, unspecified; D64.9 Anemia, unspecified; I48.0 Paroxysmal atrial fibrillation; G35 Multiple sclerosis; J44.9 Chronic obstructive pulmonary disease, unspecified
CPT/HCPCS: 36415; 80048; 85025; 93458; 99152; C1725; C1769; J1200; J1644; J3010; Q9967

== ENCOUNTER 2025-01-17 20:16 | Inpatient (IN) | payer MEDICARE, SELFPAY ==
--- OUTSIDE RECORDS SUMMARY | 2022-08-26 19:45 | XMS_ITS | Encounter Summary ---
[facility] [address] [place] [address] Care Team Providers Care Living Manager Name Role Phone Edson Berkowitz MD Primary Care Provider + [phone] Reason for Referral * Hospital - Outpatient (Routine) - Closed Specialty Diagnoses / Procedures Referred By Contac t Referred To Contact Sleep Medicine Diagnoses Excessive daytime sleepiness WINIFRED (obstructive sleep apnea) Procedures Polysomnography 4 or More Parameters Fletcher Ac MD Phone: tel: fax: [facility] [address] [address] Phone: tel: fax: Referral ID Status Reason Start Date Expiration Date Visits Re quested Visits Authorized [id number] Closed 06/04/2022 06/04/2023 1 1 Reason for Visit * Hospital - Outpatient (Routine) - Closed Specialty Diagnoses / Procedures Referred By Contprema t Referred To Contact Sleep Medicine Diagnoses Excessive daytime sleepiness WINIFRED (obstructive sleep apnea) Procedures Polysomnography 4 or More Parameters Fletcher Ac MD Phone: tel: fax: [facility] [address] [address] Phone: tel: fax: Referral ID Status Reason Start Date Expiration Date Visits Re quested Visits Authorized [id number] Closed 06/04/2022 06/04/2023 1 1 Encounter Details Date Type Department Care Team (Late st Contact Info) Description 08/26/2022 7:45 PM EDT Hospital Encounter [facility] [address] [place] [address] Fletcher Ac MD [address] [place] [address] Excessive daytime sleepiness; WINIFRED (obstructive sleep apnea) Social History Tobacco Use Types Packs/Day Years Used Date Smoking Tobacco: Former Cigarettes 2 36 0 04/06/1974 - 04/06/2010 Passive Smoke Exposure: Past Smokeless Tobacco: Never Alcohol Use Standard Drinks/Week Comments Not Currently 0 (1 standard drink = 0.6 oz pur e alcohol) AUDIT-C Answer Date Recorded Q1: How often do you have a drink containing alcohol? Never 02/25/2022 Q2: How many drinks containi ng alcohol do you have on a typical day when you are drinking? Patient does not drink Q3: How often do you have si x or more drinks on one occasion? Never 02/25/2022 Abuse Screen Answer Date Recorded Feels Unsafe at Home or Work/School no 02/25/2022 Feels Threatened by Someone no 02/05 Does Anyone Try to Keep You From Having Contact with Others or Doing Things Outside Your Home? no 02/25/2022 Physical Signs of Abuse Present no 02/25/2022 Housing Stability Answer Date Recorded Current Living Arrangements home 02/05 Potentially Unsafe Housing Conditions unable to assess 02/25/2022 Disabilities Answer Date Recorded Difficulty Concentrating, Remembering or Making Decisions no 02/25/2022 Difficulty Managing Errands Independently no 02/25/2022 Education Answer Date Recorded Help with school or training? Not on file Preferred Language Jamaican 02/25/2022 Comments No Sex and Gender Information Value Date Recorded Sex Assigned at Female 10/21/2024 9:12 AM EDT Legal Sex Female 11:48 AM EDT Gender Identity Not on file Sexual Orientation Straight 10/21/2024 9: 12 AM EDT documented as of this encounter Last Filed Vital Signs Vital Sign Reading Time Taken Comments Blood Pressure - - Pulse - - Temperature - - Respiratory Rate - - Oxygen Saturation - - Inhaled Oxygen Concentration - - Weight 88.8 kg (195 lb 12.3 oz) 023 10:40 PM EDT Height 154.9 cm (5' 0.98 ) 08/26/2022 1 0:40 PM EDT Body Mass Index 37.01 08/26/2022 10:40 PM EDT documented in this encounter Plan of Treatment Upcoming Encounters Date Type Department Care Team (Late st Contact Info) Description 03/06/2025 9:15 AM EST Office Visit [facility] [address] [facility] [address] [place] [address] Thee Vickers, INSTRUCTOR [employer]IC [employer] [address] [phone] documented as of this encounter Procedures Procedure Name Priority Date/Time Associated Diagnosis Comments NPSG Routine 08/27/2022 6:59 AM EDT Excessive daytime sleepiness WINIFRED (obstructive sleep apnea) documented in this encounter Results * NPSG (08/27/2022 6:59 AM EDT) Narrative Fletcher Ac MD - 08/28/2022 2:15 PM EDT Table formatting from the original result was not included. Polysomnography Report Patient Name: Norah Carlisle Interpreting Physician: Fletcher Ac MD Date of : 1955 Referring Physician: No info available Primary Care Physician: Edson Berkowitz MD Date of Study: Clinical Information 67-year-old female with what appears to be COPD primarily related to longstanding smoking, secondary pulmonary hypertension, and undiagnosed/untreated WINIFRED. She warrants further evaluation and treatment of WINIFRED. I will perform PFTs. Her inhaled therapy appears optimal. She did have a CT scan in February of this year which was negative for emphysema, interstitial lung disease, or suspicious pulmonary lesions. Methods used for Diagnostic Study: Subject was monitored in the sleep laboratory. Electroencephalogram (C3/M2, C4/M1, F3/M2, F4/M1, 01/M2, O2/M1), EOG, EKG, and EMG (chin and bilateral anterior tibialis) were monitored by surface electrodes and recorded utilizing a computerized polygraph. Airflow was recorded by a thermistor and pressure transducer at the nose and mouth and oxygen saturation was recorded by a pulse oximeter. Thoracic and abdominal respiratory movements were recorded on 2 separate channels by respiratory inductive plethysmograph. Sleep stages were scored by standard techniques and abnormal respiratory events, cardiac arrhythmias, and leg movements were analyzed. Polysomnography Results Diagnostic Summary TOTAL RECORDING TIME: Total Recording Time (TIB) (min): 482.2 minutes TOTAL SLEEP TIME: Total Sleep Time (TST)(min): 421 minutes SLEEP LATENCY: Sleep Latency (min): 13.8 STAGE R. LATENCY: Stage R Latency (min): 145 min SLEEP EFFICIENCY: Sleep Efficiency (%): 87.3 % WAKE AFTER SLEEP ONSET: Wake After Sleep Onset (WASO)(min): 47.4 minutes STAGE N1 DURATION: Stage N1 Duration (min): 17 minutes STAGE N1% TST Stage N1 % TST: 4 % STAGE N2 DURATION: Stage N2 Duration (min): 238 minutes STAGE N3% TST Stage N2 % TST: 56.5 % STAGE N2% TST Stage N3 Duration (min): 100 minutes STAGE N3 DURATION Stage N3 % TST: 23.8 % STAGE R DURATION Stage R Duration (min): 66 minutes STAGE R % TST Stage R % TST: 15.7 % LATENCY N1 FROM LIGHTS OUT Latency N1 from Lights Out (min): 13.8 minutes LATENCY N1 FROM SLEEP ONSET Latency N1 from Sleep Onset (min): 0 minutes LATENCY N2 FROM LIGHTS OUT Latency N2 from Lights Out (min): 20.3 minutes LATENCY N2 FROM SLEEP ONSET Latency N2 from Sleep Onset (min): 6.5 minutes LATENCY N3 FROM LIGHTS OUT Latency N3 from Lights Out (min): 35.8 minutes LATENCY N3 FROM SLEEP ONSET Latency N3 from Sleep Onset (min): 22 minutes LATENCY R FROM LIGHTS OUT Latency R from Lights Out (min): 158.8 minutes LATENCY R FROM SLEEP ONSET Latency R from Sleep Onset (min): 145 minutes Respiratory Data OBSTRUCTIVE APNEA INDEX Obstructive Apnea Index (#/hr TST): 2.9 OBSTRUCTIVE APNEA TOTAL Obstructive Apnea Total: 20 CENTRAL APNEA INDEX Central Apnea Index (#/hr TST): 0.1 CENTRAL APNEA TOTAL Central Apnea Total : 1 MIXED APNEA INDEX Mixed Apnea Index (#/hr TST): 0 MIXED APNEA TOTAL Mixed Apnea Total: 0 OBSTRUCTIVE HYPOPNEA INDEX Obstructive Hypopnea Index (#/hr TST): 2.3 OBSTRUCTIVE HYPOPNEA TOTAL Obstructive Hypopnea Total (#/hr TST): 16 TOTAL APNEA INDEX Total Apnea Index (#/hr TST): 3 AHI: AHI: 5.3 RDI: RDI (if applicable): 7.1 NREM OAI NREM OAI (#/hr TST): 2.2 NREM JARRED NREM JARRED (#/hr TST): 0 NREM XIOMY: NREM XIOMY (#/hr TST): 0 NREM TOTAL AL NREM Total Al (#/hr TST): 2.2 REM OAI: REM OAI (#/hr TST): 6.4 REM JARRED: REM JARRED (#/hr TST): 1 REM XIOMY REM XIOMY (#/hr TST): 0 REM TOTAL AL REM TOTAL Al (#/hr TST): 7.3 OCCURRENCE OF SKIP MARIANO Occurrence of Skip Mariano Breathing: no DURATION OF SKIP MARIANO No data recorded REM HYPOPNEA INDEX REM Hypopnea Index: 12.7 REM HYPOPNEA TOTAL REM Hypopnea (Total Count): 114 APNEA TOTAL No data recorded NREM HYPOPNEA INDEX NREM Hypopnea Index: 0.3 NREM HYPOPNEA TOTAL NREM Hypopnea (Total Count): 2 Arousals RESP AROUSAL INDEX Resp Arousal Index (#/hr TST): 2.1 LEG AROUSAL INDEX Leg Arousal Index (#/hr TST): 8.6 SPONTANEOUS AROUSAL INDEX No data recorded TOTAL AROUSAL INDEX Spontaneous Arousal Index (#/hr TST): 7 SNORE AROUSAL INDEX Total Arousal Index : 17.7 Limb Movements PLMS (TOTAL #) Total # PLMS: 257 PLMS INDEX Total # PLMS Arousals: 38 PLMS AROUSAL INDEX PLMS Index: 36.6 PLMS AROUSALS (TOTAL #) PLMS Arousal Index: 5.4 Cardiac AVG HR DURING SLEEP Avg HR During Sleep: 62 bpm HIGHEST HR DURING SLEEP Highest HR During Sleep: 89 bpm BRADYCARDIA Highest HR During Recordin bpm ASYSTOLE Bradycardia: no SINUS TACHYCARDIA DURING SLEEP Asystole: no NARROW COMPLEX TACHYCARDIA Sinus Tachycardia During Sleep: no WIDE COMPLEX TACHYCARDIA Narrow Complex Tachycardia: no HIGHEST HR DURING RECORDING Wide Complex Tachycardia: no ATRIAL FIBRILLATION Atrial Fibrillation: no OTHER ARRHTYMIAS Other Arrhythmias: PVC arrhythmias noted Oximetry MIN SPO2 Min SpO2: 82 % O2 SATURATION, MEAN VALUE Arterial Oxygen Saturation, Mean Value (%): 92 % Impression: Sleep efficiency normal at 87%. All sleep stages were represented. The total amount of REM sleep was mildly decreased. The arousal index was mildly elevated. The AHI was mildly elevated at 5.3. These events appear to be primarily obstructive in nature. The AHI was higher in the supine position. Oxygen saturations averaged 92% and she had a minimum saturation of 82%. Oxygen saturations were less than or equal to 88% for 21.3 minutes throughout the night. The PLM index was elevated at 37. The PLM arousal index was minimally elevated at 5.4. Mild to moderate snoring was noted. - mild obstructive sleep apnea is present. - Oxygen desaturation is present. - Snoring is present. Plan: - Recommend trial of CPAP such as AutoSet with an 8 cm minimum an 18 cm maximum. - Recommend weight loss. - Should consider overnight oximetry once sleep apnea is adequately treated as oxygen desaturations seem out of proportion to the amount of sleep apnea noted and she does have underlying COPD. Follow-up: Pulmonary clinic or sleep center Electronically signed by: Fletcher Ac MD 08/28/22 14:13 EDT us Fletcher Ac MD SLEEP [facility]ENTER ORDERABLE S Final Result documented in this encounter Visit Diagnoses Diagnosis Excessive daytime sleepiness WINIFRED (obstructive sleep apnea) Obstructive sleep apnea (adult) (pediatric) documented in this encounter Additional Health Concerns Infection Onset Date Last Indicated Resolved Time COVID Screen (preop/placement) 03/07/2022 03/07/2022 05/28/2023 12:11 PM EST documented as of this encounter Care Teams Living Manager Relationship Specialty Start Date End Date Edson Berkowitz MD [address] [place] [facility] [address] [place] [address] PCP - General Adolescent Medicine 11/09/21 documented as of this encounter
--- OUTSIDE RECORDS SUMMARY | 2022-08-26 19:45 | XMS_ITS | Encounter Summary ---
[facility] [address] [place] [address] Care Team Providers Care Building Maintenance Mechanic Name Role Phone Edson Berkowitz MD Primary Care Provider + [phone] Reason for Referral * Hospital - Outpatient (Routine) - Closed Specialty Diagnoses / Procedures Referred By Contac t Referred To Contact Sleep Medicine Diagnoses Excessive daytime sleepiness WINIFRED (obstructive sleep apnea) Procedures Polysomnography 4 or More Parameters Fletcher Ac MD Phone: tel: fax: [facility] [address] [address] Phone: tel: fax: Referral ID Status Reason Start Date Expiration Date Visits Re quested Visits Authorized [id number] Closed 06/04/2022 06/04/2023 1 1 Reason for Visit * Hospital - Outpatient (Routine) - Closed Specialty Diagnoses / Procedures Referred By Contprema t Referred To Contact Sleep Medicine Diagnoses Excessive daytime sleepiness WINIFRED (obstructive sleep apnea) Procedures Polysomnography 4 or More Parameters Fletcher Ac MD Phone: tel: fax: [facility] [address] [address] Phone: tel: fax: Referral ID Status Reason Start Date Expiration Date Visits Re quested Visits Authorized [id number] Closed 06/04/2022 06/04/2023 1 1 Encounter Details Date Type Department Care Team (Late st Contact Info) Description 08/26/2022 7:45 PM EDT Hospital Encounter [facility] [address] [place] [address] Fletcher Ac MD [address] [place] [address] Excessive daytime sleepiness; WINIFRED (obstructive sleep apnea) [...] or training? Not on file Preferred Language Burkinan 02/25/2022 Comments No Sex and Gender Information [...] Description 03/06/2025 9:15 AM EST Office Visit [facility] [address] [facility] [address] [place] [address] Thee Vickers, REELING OPERATOR [address] [phone] documented as of this encounter Procedures Procedure [...] Patient Name: Norah Carlisle Interpreting Physician: Fletcher cA MD Date of : 1955 Referring Physician: [...] documented as of this encounter Care Teams Building Maintenance Mechanic Relationship Specialty Start Date End Date Edson Berkowitz MD [address] [place] [facility] [address] [place] [address] PCP - General Adolescent Medicine 11/09/21 documented as of this encounter
--- OUTSIDE RECORDS SUMMARY | 2025-01-11 06:57 | XMS_ITS | Encounter Summary ---
Author Organization [facility] Address [address] [place] [address] Care Team Providers Care License Inspector Name Role Phone Edson Berkowitz MD Primary Care Provider + [phone] Charlie Hopkins MD Unavailable + [phone] Jonathan Jarrett DO Unavailable [phone] Reason for Referral * Imaging (Routine) - Closed Specialty Diagnoses / Procedures Referred By Pipo vega Referred To Contact Radiology Diagnoses Multiple sclerosis Procedures MR Head wo IV Contrast Jonathan Jarrett DO [address] [address] Phone: tel: fax: Referral ID Status Reason Start Date Expiration Date Visits Re quested Visits Authorized [id number] Closed 01/15/2024 07/16/2025 1 1 Reason for Visit * Imaging (Routine) - Closed Specialty Diagnoses / Procedures Referred By Pipo vega Referred To Contact Radiology Diagnoses Multiple sclerosis Procedures MR Head wo IV Contrast Jonathan Jarrett DO [address] [place] [address] Phone: tel: fax: Referral ID Status Reason Start Date Expiration Date Visits Re quested Visits Authorized [id number] Closed 01/15/2024 07/16/2025 1 1 Encounter Details Date Type Department Care Team (Latest Contact Info) Description 01/11/2025 6:57 AM EDT - 01/11/2025 7:13 AM EDT Hospital Encounter [facility] [address] [place] [address] Multiple sclerosis Discharge Disposition: Home or Self Care Social History Tobacco Use Types Packs/Day Years Used Date Smoking Tobacco: Former Cigarettes 2 30 Passive Smoke Exposure: Past Smokeless Tobacco: Never Alcohol Use Standard Drinks/Week Comments No 0 (1 standard drink = 0.6 oz pur e alcohol) PHQ-2 Answer Date Recorded Patient Health Questionnaire-2 Score 0 06/09/2024 PHQ-2A Answer Date Recorded Patient Health Questionnaire-2 Score 0 01/12/2023 Comments No Sex and Gender Information Value Date Recorded Sex Assigned at Not on file Legal Sex Female 7:38 PM EDT Gender Identity Not on file Sexual Orientation Not on file documented as of this encounter Medications at Time of Discharge acetaminophen (Tylenol) 325 MG tablet Take 2 tablets (650 mg) by mouth. 03/07/2022 aspirin 81 MG EC tablet 1 tab(s) orally once a day atorvastatin (Lipitor) 40 MG tablet Take 1 tablet (40 mg) by mouth daily. 04/24/2021 Calcium Carbonate-Vit D-Min (Caltrate 600+D Plus Minerals) 600-800 MG-UNIT chewable tablet Take 1 tablet twice daily 09/24/2015 Cyanocobalamin ER (Vitamin B12) 1000 MCG tablet controlled-releas e 1 tab(s) orally once a day loratadine (Claritin) 10 MG tablet Take 1 tablet (10 mg) by mouth daily. 04/13/2023 losartan (Cozaar) 25 MG tablet Take 1 tablet by mouth daily. 12/31/2024 Melatonin 10 MG tablet Take 10 mg by mouth 1 (one) time each day. Multiple Vitamins-Minerals (CENTRUM SILVER 50+WOMEN PO) TAKE 1 TABLET DAILY. 11/04/2019 omeprazole (PriLOSEC) [address] capsule 1 cap(s) orally once a day tamsulosin (Flomax) 0.4 MG 24 hr capsule Take 1 capsule (0.4 mg) by mouth daily. 04/04/2022 documented as of this encounter Plan of Treatment Upcoming Encounters Date Type Department Care Team (Late st Contact Info) Description 06/13/2025 9:30 AM EDT Appointment [facility] [address] [place] [address] 06/13/2025 10:30 AM EDT Office Visit [facility] [address] [facility], 2nd [place] [address] Paola Tapia, RESIDENTIAL INSTALLER [address] [facility] [address] [place] [address] documented as of this encounter Procedures Procedure Name Priority Date/Time Associated Diagnosis Comments MR HEAD WO IV CONTRAST Routine 01/11/2025 9:24 AM EDT Multiple sclerosis documented in this encounter Results * MR Head wo IV Contrast (01/11/2025 9:24 AM EDT) Anatomical Region Laterality Modality Head Magnetic Resonan ce Impressions 01/11/2025 7:54 PM EDT Unchanged since the previous examination. No new demyelination. Víctor Dunne M.D. This report has been electronically signed and verified by the Radiologist whose name is printed above. This report contains privileged and confidential information and is intended solely for the use of the individual or entity to which it is addressed. If you are not the intended recipient of this report, you are hereby notified that any copying, distribution, dissemination or action taken in relation to the contents of this report is strictly prohibited and may be unlawful. If you have received this report in error, please notify the sender immediately at [phone] and permanently delete the original report and destroy any copies or printouts. Narrative 01/11/2025 7:54 PM EDT [facility] - Phone Outpatient NAME: Orestes Norah Nicki DATE OF EXAM: 01/11/2025 Patient No: [id number] Physician: Nicolasa Date of : 1955 Past Medical/Surgical History (entered by technologist): Symptoms/Reason For Exam (entered by technologist): Multiple sclerosis (MS) Tech Notes (entered by technologist): No Contrast Additional History (per [facility]): Contrast Agent and Dose: None. Comparison: MR head June 19, 2021 Technique: Multiplanar, Multisequence MRI through the head was performed without intravenous contrast. FINDINGS: CSF spaces are normal in signal intensity and morphology. Multifocal periventricular, deep, and subcortical white matter T2 hyperintensity in both cerebral hemispheres. No abnormally restricted diffusion. No abnormal susceptibility. Aside from demyelination, normal midline structures. No suspicious bone lesions. No definite orbit abnormality. Major intracranial vascular structures appear normal. Minimal mucosal thickening in ethmoid sinuses. Procedure Note Víctor Dunne MD - 01/11/2025 [facility] - Phone Outpatient NAME: Norah Carlisle DATE OF EXAM: 01/11/2025 Patient No: [id number] Physician: Nicolasa Date of : 1955 Past Medical/Surgical History (entered by technologist): Symptoms/Reason For Exam (entered by technologist): Multiple sclerosis(MS) Tech Notes (entered by technologist): No Contrast Additional History (per [facility]): Contrast Agent and Dose: None. Comparison: MR head June 19, 2021 Technique: Multiplanar, Multisequence MRI through the head was performedwithout intravenous contrast. FINDINGS: CSF spaces are normal in signal intensity and morphology. Multifocalperiventricular, deep, and subcortical white matter T2 hyperintensity inboth cerebral hemispheres. No abnormally restricted diffusion. Noabnormal susceptibility. Aside from demyelination, normal midlinestructures. No suspicious bone lesions. No definite orbit abnormality.Major intracranial vascular structures appear normal. Minimal mucosalthickening in ethmoid sinuses. IMPRESSION: Unchanged since the previous examination. No new demyelination. Víctor Dunne M.D. This report has been electronically signed and verified by the Radiologistwhose name is printed above. This report contains privileged and confidential information and isintended solely for the use of the individual or entity to which it isaddressed. If you are not the intended recipient of this report, you arehereby notified that any copying, distribution, dissemination or actiontaken in relation to the contents of this report is strictly prohibitedand may be unlawful. If you have received this report in error, pleasenotify the sender immediately at [phone] and permanently delete theoriginal report and destroy any copies or printouts. Jonathan Jarrett DO IMG MRI PROCEDURES Final Re sult documented in this encounter Visit Diagnoses Diagnosis Multiple sclerosis documented in this encounter Additional Health Concerns Assessment Noted Time A fall risk assessment has been complete d for the patient 06/09/2024 11:21 AM EST A Body Mass Index follow-up plan has been documented for the patient 01/15/2024 2:32 PM EDT documented as of this encounter Care Teams License Inspector Relationship Specialty Start Date End Date Edson Berkowitz MD [address] [place] [address] PCP - General 08/17/20 Charlie Hopkins MD [address] [place] [address] Service Attending Neurology 05/22/21 Jonathan Jarrett DO [address] [place] [address] Consulting Physician Neurology 08/29/21 documented as of this encounter
--- OUTSIDE RECORDS SUMMARY | 2025-01-11 06:57 | XMS_ITS | Encounter Summary ---
Author Organization [facility] Address [address] [place] [address] Care Team Providers Care Engraver Block Name Role Phone Edson Berkowitz MD Primary Care Provider + [phone] Charlie Hopkins MD Unavailable + [phone] Jonathan Jarrett DO Unavailable [phone] Reason for Referral * Imaging (Routine) - Closed Specialty Diagnoses / Procedures Referred By Pipo vega Referred To Contact Radiology Diagnoses Multiple sclerosis Procedures MR Head wo IV Contrast Jonathan Jarrett DO [address] [address] Phone: tel: fax: Referral ID Status Reason Start Date Expiration Date Visits Re quested Visits Authorized [id number] Closed 01/15/2024 07/16/2025 1 1 Reason for Visit * Imaging (Routine) - Closed Specialty Diagnoses / Procedures Referred By Pipo vega Referred To Contact Radiology Diagnoses Multiple sclerosis Procedures MR Head wo IV Contrast Jonathan Jarrett DO [address] [place] [address] Phone: tel: fax: Referral ID Status Reason Start Date Expiration Date Visits Re quested Visits Authorized [id number] Closed 01/15/2024 07/16/2025 1 1 Encounter Details Date Type Department Care Team (Latest Contact Info) Description 01/11/2025 6:57 AM EDT - 01/11/2025 7:13 AM EDT Hospital Encounter [facility] [address] [place] [address] Multiple sclerosis Discharge Disposition: Home or Self [...] 9:30 AM EDT Appointment [facility] [address] [place] [address] 06/13/2025 10:30 AM EDT Office Visit [facility] [address] [facility], 2nd [place] [address] Paola Tapia, SOLAR ENERGY SPECIALIST [address] [facility] [address] [place] [address] documented as of this encounter [...] error, please notify the sender immediately at [phone] and permanently delete the original report and destroy any copies or printouts. Narrative 01/11/2025 7:54 PM EDT [facility] - Phone Outpatient NAME: Orestes Norah Nicki DATE OF EXAM: 01/11/2025 Patient No: [id number] Physician: Nicolasa Date of : 1955 Past [...] Carlisle DATE OF EXAM: 01/11/2025 Patient No: [id number] Physician: Nicolasa Date of : 1955 Past [...] in error, pleasenotify the sender immediately at [phone] and permanently delete theoriginal report and destroy [...] documented as of this encounter Care Teams Engraver Block Relationship Specialty Start Date End Date Edson Berkowitz MD [address] [place] [address] PCP - General 08/17/20 Charlie Hopkins MD [address] [place] [address] Service Attending Neurology 05/22/21 Jonathan Jarrett DO [address] [place] [address] Consulting Physician Neurology 08/29/21 documented as of this encounter
--- OUTSIDE RECORDS SUMMARY | 2025-01-11 07:14 | XMS_ITS | Encounter Summary ---
Author Organization [facility] Address [address] [place] [address] Care Team Providers Care Derrick Boat Operator Name Role Phone Edson Berkowitz MD Primary Care Provider + [phone] Charlie Hopkins MD Unavailable + [phone] Jonathan Jarrett DO Unavailable [phone] Encounter Details Date Type Department Care Team (Latest Contact Info) Description 01/11/2025 7:14 AM EDT - 01/11/2025 11:59 PM EDT Hospital Encounter [facility] [address] [place] [address] Multiple sclerosis Discharge Disposition: Home or Self [...] Info) Description 06/13/2025 9:30 AM EDT Appointment [facility] [place] [address] [facility] [address] [place] [address] 06/13/2025 10:30 AM EDT Office Visit [facility] [address] [facility], 2nd [place] [address] Paola Tapia, ADULT NEUROPSYCHOLOGIST [address] [facility] [address] [place] [address] documented as of this encounter Procedures Procedure Name Priority Date/Time Associated Diagnosis Comments XR CHEST 1 VIEW Routine 01/11/2025 7:42 AM EDT Multiple sclerosis documented in this encounter Results * XR Chest 1 View (01/11/2025 7:42 AM EDT) Anatomical Region Laterality Modality Chest Digital Radiogra phy Impressions 01/11/2025 10:07 AM EDT No acute findings. CRITICAL RESULT: No. COMMUNICATION: Per this written report. Drafted by Hola Haddad MD on 01/11/2025 10:07 AM Final report signed by Hola Haddad MD on 01/11/2025 10:07 AM Narrative 01/11/2025 10:07 AM EDT CLINICAL INDICATION: Multiple sclerosis (MS) TECHNIQUE: XR CHEST 1 VIEW COMPARISON: None. FINDINGS: Lungs are clear. Heart and mediastinal contours are within normal limits. No pleural effusion or pneumothorax. Procedure Note Hola Haddad MD - 01/11/2025 CLINICAL INDICATION: Multiple sclerosis (MS) TECHNIQUE: XR CHEST 1 VIEW COMPARISON: None. FINDINGS: Lungs are clear. Heart and mediastinal contours are within normal limits.No pleural effusion or pneumothorax. IMPRESSION: No acute findings. CRITICAL RESULT: No. COMMUNICATION: Per this written report. Drafted by Hola Haddad MD on 01/11/2025 10:07 AM Final report signed by Hola Haddad MD on 01/11/2025 10:07 AM Lady Noonan MD IMG XR PROCEDURES Final Result documented in this encounter Visit Diagnoses Diagnosis Multiple sclerosis documented in this encounter Additional Health Concerns Assessment Noted Time A fall risk assessment has been complete d for the patient 06/09/2024 11:21 AM EST A Body Mass Index follow-up plan has been documented for the patient 01/15/2024 2:32 PM EDT documented as of this encounter Care Teams Derrick Boat Operator Relationship Specialty Start Date End Date Edson Berkowitz MD [address] [place] [address] PCP - General 08/17/20 Charlie Hopkins MD [address] [place] [address] Service Attending Neurology 05/22/21 Jonathan Jarrett DO [address] [place] [address] Consulting Physician Neurology 08/29/21 documented as of this encounter
--- OUTSIDE RECORDS SUMMARY | 2025-01-11 07:14 | XMS_ITS | Encounter Summary ---
Author Organization [facility] Address [address] [place] [place] [address] Care Team Providers Care Commercial Property Administrator Name Role Phone Edson Berkowitz MD Primary Care Provider + [phone] Charlie Hopkins MD Unavailable + [phone] Jonathan Jarrett DO Unavailable [phone] Encounter Details Date Type Department Care Team (Latest Contact Info) Description 01/11/2025 7:14 AM EDT - 01/11/2025 11:59 PM EDT Hospital Encounter [facility] [address] [place] [address] Multiple sclerosis Discharge Disposition: Home or Self [...] Info) Description 06/13/2025 9:30 AM EDT Appointment [facility] [place] [address] [facility] [address] [place] [address] 06/13/2025 10:30 AM EDT Office Visit [facility] [address] [facility], 2nd [place] [address] Paola Tapia, FOOD PRODUCTS SALES REPRESENTATIVE [address] [facility] [address] [place] [address] documented as of this encounter Procedures Procedure [...] documented as of this encounter Care Teams Commercial Property Administrator Relationship Specialty Start Date End Date Edson Berkowitz MD [address] [place], [place] [address] PCP - General 08/17/20 Charlie Hopkins MD [address] [place] [address] Service Attending Neurology 05/22/21 Jonathan Jarrett DO [address] [place] [address] Consulting Physician Neurology 08/29/21 documented as of this encounter
--- OUTSIDE RECORDS SUMMARY | 2025-01-16 16:00 | XMS_ITS | Encounter Summary ---
Author Organization [facility] Address [address] [place] [address] Care Team Providers Care Paper Wood Cutter Name Role Phone Edson Berkowitz MD Primary Care Provider + [phone] Charlie Hopkins MD Unavailable + [phone] Jonathan Jarrett DO Unavailable [phone] Encounter Details Date Type Department Care Team (Late st Contact Info) Description 01/16/2025 4:00 PM EDT [facility] Visit [facility] [address] [place] [address] Jonathan Jarrett DO [address] [place] [address] Multiple sclerosis, relapsing-remitting (Primary Dx) Social History Tobacco Use Types Packs/Day Years Used Date Smoking Tobacco: Former Cigarettes 2 - 1974 Passive Smoke Exposure: Past Smokeless Tobacco: Never Comments:Smoked from age 19 and quit in 2012. Smoked about 2 packs a day Alcohol Use Standard Drinks/Week Comments Never 0 (1 standard drink = 0.6 oz [...] on file documented as of this encounter Last Filed Vital Signs Vital Sign Reading Time Taken Comments Blood Pressure 158/78 01/16/2025 2:56 PM EDT Pulse 85 01/16/2025 2:48 PM EDT Temperature 36.7 C (98 F) 01/16/2025 2:48 PM EDT Respiratory Rate - - Oxygen Saturation 95% 01/16/2025 2:48 PM EDT Inhaled Oxygen Concentration - - Weight - - Height - - Body Mass Index - - documented in this encounter Miscellaneous Notes * Progress Notes - Jonathan Jarrett DO - 01/16/2025 4:00 PM EDT This is a very pleasant 69-year-old female with longstanding multiple sclerosis not currently on disease modifying therapy here today for follow-up. She reports no new neurologic issues since I saw her last. Overall she states that she feels good. She feels like she stable in regards to her multiple sclerosis. On examination today she is alert and oriented x3. Her speech is fluent there is no dysarthria and no aphasia. Cranial nerves 2-12 were intact. She has 5/5 strength in bilateral upper and lower extremities there is no ataxia shfrkw-xf-lwlm or lyyr-hw-rzms she does have some subtle dysmetria sensation was intact throughout. I reviewed her most recent MRI of the brain which shows no progression of disease. In summary this is a very pleasant 69-year-old female with longstanding multiple sclerosis. Given her age I think it is safe for her to stay off disease modifying therapy at this time. She will follow-up with me in 1 year or sooner if there is any problems in the interim. I spent 30 minutes in patient care. documented in this encounter Plan of Treatment Upcoming Encounters Date Type Department Care Team (Late st Contact Info) Description 06/13/2025 9:30 AM EDT Appointment [facility] [address] [place] [address] 06/13/2025 10:30 AM EDT Office Visit [facility] [address] [facility], [address]nd [place] [address] Paola Tapia, BAKE ROOM WORKER [address] [facility] [address] [place] [address] documented as of this encounter Visit Diagnoses Diagnosis Multiple sclerosis, relapsing-remitting- Primary Multiple sclerosis documented in this encounter Additional Health Concerns Assessment Noted Time A fall risk assessment has been complete d for the patient 01/16/2025 2:54 PM EDT A Body Mass Index follow-up plan has been documented for the patient 01/16/2025 3:25 PM EDT documented as of this encounter Care Teams Paper Wood Cutter Relationship Specialty Start Date End Date Edson Berkowitz MD [address] [place] [address] PCP - General 08/17/20 Charlie Hopkins MD [address] [place] [address] Service Attending Neurology 05/22/21 Jonathan Jarrett DO [address] [place] [address] Consulting Physician Neurology 08/29/21 documented as of this encounter
--- OUTSIDE RECORDS SUMMARY | 2025-01-16 16:00 | XMS_ITS | Encounter Summary ---
Author Organization [facility] Address [address] [place] [address] Care Team Providers Care Material Control Analyst Name Role Phone Edson Berkowitz MD Primary Care Provider + [phone] Charlie Hopkins MD Unavailable + [phone] Jonathan Jarrett DO Unavailable [phone] Encounter Details Date Type Department Care Team (Late st Contact Info) Description 01/16/2025 4:00 PM EDT [facility] Visit [facility] [address] [place] [address] Jonathan Jarrett DO [address] [place] [address] Multiple sclerosis, relapsing-remitting (Primary Dx) [...] and lower extremities there is no ataxia ztpdto-kr-idjf or ibcz-ue-iium she does have some subtle dysmetria sensation [...] AM EDT Appointment [facility] [address] [place] [address] 06/13/2025 10:30 AM EDT Office Visit [facility] [address] [facility], 2nd [place] [address] Paola Tapia, OPERATION SHIFT SUPERVISOR [address] [facility] [address] [place] [address] documented as of this encounter [...] documented as of this encounter Care Teams Material Control Analyst Relationship Specialty Start Date End Date Edson Berkowitz MD [address] [place] [address] PCP - General 08/17/20 Charlie Hopkins MD [address] [place] [address] Service Attending Neurology 05/22/21 Jonathan Jarrett DO [address] [place] [address] Consulting Physician Neurology 08/29/21 documented as of this encounter
[2025-01-17 20:18] VITALS: BP 198/88; PULSE 90; RESP 20; TEMP 37.3; O2SAT 99; BMI 34.0
[2025-01-17 20:52] LABS: Bilirubin,Urine Negative (Negative); Color,Urine YELLOW (Yellow); Glucose,Urine (UA) Negative (Negative); Ketones,Urine Negative (Negative); Leukocyte Esterase,Urine 1+ (Negative); Microscopic, Urine URINE MICROSCOPIC (MICROSCOPIC); PH,Urine 6.0 (5.0-8.5); Protein,Urine Negative (Negative); Specific Gravity, Urine 1.020 (1.005-1.030); Urobilinogen,Urine 0.2 EU/dl (0.2)
--- NOTE | 2025-01-17 20:53 | XR_ITS ---
PROCEDURE INFORMATION: Exam: XR Chest Exam date and time: 01/17/2025 10:10 PM Age: 69 years old Clinical indication: Shortness of breath; Additional info: Cp SOA TECHNIQUE: Imaging protocol: Radiologic exam of the chest. Views: 1 view. COMPARISON: CR XR CHEST 2V 03/17/2024 12:33 PM FINDINGS: Lungs: Unremarkable. No consolidation. Pleural spaces: Unremarkable. No pleural effusion. No pneumothorax. Heart/Mediastinum: Unremarkable. No cardiomegaly. Bones/joints: Unremarkable. IMPRESSION: No acute findings.
--- NOTE | 2025-01-17 20:55 | ECG_ITS ---
APPROVED REPORT Exam: Resting ECG HR:96 bpm ECG Measurements Heart Rate 96 AXES RI 160 P 62 QRSd 94 QRS 73 QT 344 T 56 QTc 398 Conclusion Normal sinus rhythm Normal axis Normal intervals No STEMI PVCs Electronically signed by : Tommie Bhardwaj, 01/18/2025 02:03:29
--- NOTE | 2025-01-17 20:59 | CT_ITS ---
PROCEDURE INFORMATION: Exam: CTA Chest With Contrast Exam date and time: 01/17/2025 10:30 PM Age: 69 years old Clinical indication: Shortness of breath; Additional info: SOA TECHNIQUE: Imaging protocol: Computed tomographic angiography of the chest with contrast. Exam focused on the arteries. 3D rendering (Not supervised by radiologist): MIP and/or 3D reconstructed images were created by the technologist. Radiation optimization: All CT scans at this facility use at least one of these dose optimization techniques: automated exposure control; mA and/or kV adjustment per patient size (includes targeted exams where dose is matched to clinical indication); or iterative reconstruction. Contrast material: ISOVUE; Contrast volume: 70 ml; Contrast route: INTRAVENOUS (IV); COMPARISON: CR XR CHEST PORTABLE 01/17/2025 10:10 PM FINDINGS: Tubes, catheters and devices: Thrombosed left atrial appendage device. Pulmonary arteries: No central or segmental pulmonary arterial intraluminal filling defects identified. Aorta: Atherosclerotic calcification of aorta without aneurysm or obvious dissection. Lungs: Interstitial prominence. Subtle Cristiane B-lines. Underlying mild paraseptal and centrilobular emphysematous changes. Pleural spaces: Unremarkable. No pneumothorax. No pleural effusion. Heart: Unremarkable. No cardiomegaly. No pericardial effusion. Lymph nodes: Unremarkable. No enlarged lymph nodes. Bones/joints: No acute findings. Soft tissues: Unremarkable. IMPRESSION: 1. No central or segmental pulmonary arterial embolism identified. 2. Low-grade CHF/pulmonary edema. COMMENTS: The presence of pulmonary emphysema on CT is an independent risk factor for lung cancer. In the absence of a history or active diagnosis of lung cancer, it is recommended that this patient with emphysema be evaluated for enrollment in a low dose CT lung cancer screening program.
--- NOTE | 2025-01-17 21:05 | [facility].EDCP ---
Discharge Plan Disposition Chief Complaint: Shortness of Breath/Dyspnea Prescriptions Prescriptions: No Action loratadine 10 mg tablet PO DAILY Patient Comments: TAKE 1 TABLET BY MOUTH ONCE DAILY atorvastatin 80 mg tablet 80 mg PO DAILY Qty: 90 3RF losartan 25 mg tablet See Rx Instructions .ROUTE .COMPLEX Qty: 90 3RF Dose Instruction: Take 1 tablet by mouth once daily Rx Instructions: Take 1 tablet by mouth once daily aspirin 81 mg tablet,chewable 81 mg PO DAILY melatonin 10 mg tablet 10 mg PO HS PRN (Reason: Sleep) ascorbic acid (vitamin C) [Vitamin C] 1,000 mg tablet 1 g PO DAILY tamsulosin 0.4 mg capsule 0.4 mg PO DAILY mecobalamin (vitamin B12) [B12 Active] 1,000 mcg tablet,chewable 1,000 mcg PO DAILY psyllium husk [Metamucil] 0.4 gram capsule 0.4 g PO BID PRN (Reason: no comment) hydrocortisone [Proctosol HC] 2.5 % cream with perineal applicator 1 applic RC QD-BID PRN (Reason: hemorrhoids) Qty: 30 0RF omeprazole 40 mg capsule,delayed release(DR/EC) 40 mg PO DAILY Qty: 90 3RF ypriczpvsqhw-zizj-bbwgn acid 1 EACH tablet 1 each PO DAILY [id number] 1 EACH tablet 1 each PO DAILY hydrocortisone acetate 25 mg suppository 25 mg RC BID PRN (Reason: inflammation) Referrals Follow up/Referrals: Brittany Ibarra APRN [Primary Care Provider, Medical] - See instructions Print Language Print Language: Persian Discharge ED Provider: Tommie Bhardwaj [facility] <Domitila Malik APRN - Last Filed: 01/17/25 22:07> General Chief Complaint: Shortness of Breath/Dyspnea Stated Complaint: High BP, SOA Time Seen by Provider: 01/17/25 20:44 Mode of Arrival: Ambulatory Source of Information: Patient Description of Symptoms (Recalled from ER Triage Doc. by RN): Pt stated she started to feel funny about an hour ago. Pt stated she felt a slight headache and just felt off. Pt took her blood pressure at home and it was 212/100. Pt is on losartan for BP control, but had a left over metoprolol and took 12 mg of it at around 1999. Pt also complains of exertional shortness of breath. History of Present Illness HPI narrative: patient is a 69-year-old female PMHx CAD, angina, renal insufficiency, hypertension, hyperlipidemia, history of A-fib who presents to the ED for complaints of shortness of breath that started today and elevated blood pressure. Patient states that she is taking her losartan 25 mg daily blood pressure medication however continues to be hypertensive. She states that she is short of breath, worse on exertion. She states that today she has developed a cough. She does not wear oxygen at home, does wear CPAP at night for her sleep apnea. Related Data Home Medications ?Medication ?Instructions ?Recorded ?Confirmed calcium 600 mg-D3 800 unit-mag11 1 each PO DAILY Supplement 06/01/17 01/17/25 50 kd-wohz-olguzg-aj-s.borat tablet multivitamin-ferrous 1 each PO DAILY Supplement 06/01/17 01/17/25 fumarate-folic acid 18 mg-400 mcg tablet aspirin 81 mg chewable tablet 81 mg PO DAILY Blood thinner 03/09/20 01/17/25 melatonin 10 mg tablet 10 mg PO HS PRN Sleep 12/02/21 01/17/25 ascorbic acid (vitamin C) 1,000 mg 1 g PO DAILY 03/26/22 01/17/25 tablet (Vitamin C) mecobalamin (vitamin B12) 1,000 1,000 mcg PO DAILY 03/26/22 01/17/25 mcg chewable tablet (B12 Active) tamsulosin 0.4 mg capsule 0.4 mg PO DAILY 03/26/22 01/17/25 loratadine 10 mg tablet mg PO DAILY 07/13/23 11/08/24 hydrocortisone acetate 25 mg 25 mg DC BID PRN inflammation 10/01/23 11/08/24 rectal suppository psyllium husk 0.4 gram capsule 0.4 g PO BID PRN no comment 10/01/23 01/17/25 (Metamucil) Previous Rx's ?Medication ?Instructions ?Recorded hydrocortisone 2.5 % topical cream 1 applic DC QD-BID PRN hemorrhoids 01/29/22 with perineal applicator #30 grams (Proctosol HC) omeprazole 40 mg capsule,delayed 40 mg PO DAILY stomach #90 caps 06/11/23 release atorvastatin 80 mg tablet 80 mg PO DAILY Cholesterol #90 tabs 04/23/25 losartan 25 mg tablet See Rx Instructions .Route 11/08/24 .COMPLEX #90 tabs Allergies Allergy/AdvReac Type Severity Reaction Status Date / Time diltiazem AdvReac Mild extremity Verified 11/08/24 09:44 swelling [facility] <oDmitila Malik APRN - Last Filed: 01/17/25 22:07> [facility] Disclaimer: The information contained in this section may have been updated after the patient was seen, as this information can be updated by other users. Medical History (Updated 11/08/24 @ 12:27 by Shavon Dumont APRN) SOB (shortness of breath) on exertion Weight gain Angina pectoris Abnormal nuclear cardiac imaging test Status post placement of implantable loop recorder HLD (hyperlipidemia) HTN (hypertension) Coronary artery disease Chest pressure Anemia Dyspnea Numbness Dizziness Multiple sclerosis Chest pain Atrial fibrillation Surgical History History of esophagogastroduodenoscopy (EGD) History of colonoscopy Family History Other Asthma Cancer Coronary artery disease Diabetes Heart attack Hypertension Stroke Social History Smoking Status: Never smoker second hand exposure: No alcohol intake: never counseling provided: provider counseling substance use type: denies use current occupational status: retired and disabled Travel in the last 8 weeks?: Inside the [place] household members: spouse housing: house current occupational exposures/hazards: No caffeine: Yes Have you lived/traveled outside [place] in past 30 days?: No Contact w/someone who lives/traveled outside [place] past 30 days?: No Exposure to someone with infectious disease in past 14 days?: No Do you have a fever (greater than 100.4 F or 38 C)?: No Have you tested positive for COVID-19?: No Exposed to someone with COVID-19 in past 14 days?: No Do you have a sore throat?: No Do you have a cough?: No Do you have any weakness?: No Do you have any diarrhea?: No Are you experiencing any unusual bleeding?: No Do you have any muscle aches/pain?: No Do you have any abdominal pain?: No Are you experiencing loss of taste or smell?: No Other Medical History Have you received the Flu Vaccine for this season: Yes Have you received the Pneumonia Vaccine: No <Domitila Malik APRN - Last Filed: 01/17/25 22:07> ROS Obtained: Yes Systems reviewed as appropriate & no additional complaints except as documented Physical Exam <Domitila Malik APRN - Last Filed: 01/17/25 22:07> General General appearance: alert Head Head exam: normocephalic Eye Eye exam: Present PERRL and EOMI Neck Neck exam: Present full ROM Respiratory Respiratory exam: Present other (Tachypnea); Absent wheezes Cardiovascular Cardiovascular exam: Present regular rate Abdominal Exam Abdominal exam: Present soft; Absent tenderness Extremities Exam Extremities exam: Present full ROM Neurological Exam Neurological exam: Present alert, oriented X3 and normal gait Skin Skin exam: Present warm and dry HEART Score <Domitila Malik APRN - Last Filed: 01/17/25 22:07> HEART Score HEART Score assessment performed?: No Procedures <Tommie Bhardwaj DO - Last Filed: 01/18/25 01:17> Miscellaneous Procedure Procedure Performed: Limited lung ultrasound A focused ultrasound exam of the pleural spaces was performed to evaluate for pneumothorax, pulmonary edema, pleural effusion, and/or consolidation. The ultrasound was performed with the following indications as noted in the H&P: Dyspnea Identified structures: Right and left thoracic cavities were examined. Findings Lung sliding: Right and left present B-lines: Left anterior and lateral Right anterior and lateral present Pleural effusion: The right and left absent Consolidation: Right and left absent Impression: Pneumothorax right and left absent Pleural effusion right and left absent B-lines right and left present Consolidation right and left absent Images were saved to permanent archive This study was technically adequate CPT: 62209-53 This study was performed by sd and I personally interpreted all images/videos. Based on my clinical judgment these images were adequate and did not necessitate further imaging. Limited cardiac ultrasound note Indication: Shortness of breath Identified cardiac views: Unable to obtain cardiac parasternal long axis and parasternal short axis [Cardiac apical four-chamber] [Cardiac subxiphoid] Findings: Cardiac activity: Present Gross wall motion: Normal Pericardial effusion: Absent Right heart strain: Absent Impression: Normal cardiac echo on limited 2 view Images were saved to permanent archive This study was technically adequate CPT: 16005 This study was performed by sd and I personally interpreted all images/videos. Based on my clinical judgment these images were adequate and did not necessitate further imaging. Critical Care <Domitila Malik APRN - Last Filed: 01/17/25 22:07> Critical Care Time Critical Care Time: No Medical Decision Making <Domitila Malik APRN - Last Filed: 01/17/25 22:07> Nate Inquiry Pt receiving controlled substance: No Vital Signs Vital Signs: 01/17/25 20:18 01/17/25 21:32 Temperature 99.2 F Temperature Source Temporal Artery Scan Pulse Rate 95 H Pulse Rate [Right] 90 Respiratory Rate 20 Blood Pressure 239/106 H Blood Pressure [Right Arm] 198/88 H Blood Pressure Mean 135 Blood Pressure Mean [Right Arm] 124 Blood Pressure Source [Right Arm] Automatic Cuff Blood Pressure Position [Right Arm] Sitting 02 Sat by Pulse Oximetry 99 94 L Lab Data Labs: Lab Results 01/17/25 20:46: Urine Color Yellow, Urine Appearance Clear, Urine pH 6.0, Ur Specific [place] 1.020, Urine Protein Negative, Urine Glucose (UA) Negative, Urine Ketones Negative, Urine Blood Negative, Urine Nitrate Negative, Urine Bilirubin Negative, Urine Urobilinogen 0.2, Ur Leukocyte Esterase 1+ A, Urine RBC Occasional, Urine WBC None, Ur Squamous Epith Cells None, Urine Bacteria None 01/17/25 21:04: WBC 7.5, RBC 4.00 L, Hgb 11.9 L, Hct 36.8 L, MCV 92.0, MCH 29.8, MCHC 32.3, RDW 12.9, Plt Count 278, MPV 10.4, Neut % (Auto) 58.3, Lymph % (Auto) 30.9, Larue % (Auto) 6.5, Eos % (Auto) 3.3, Baso % (Auto) 0.5, Neut # (Auto) 4.4, Lymph # (Auto) 2.3, Larue # (Auto) 0.5, Eos # (Auto) 0.3, Baso # (Auto) 0.0, PT 10.3, INR 0.92, APTT 23.8, Sodium 141, Potassium 4.2, Chloride 102, Carbon Dioxide 27, Anion Gap 16.2 H, BUN 22 H, Creatinine 0.90, Estimated Creat Clear 67, Estimated GFR 62, Est GFR ( Amer) 75, Glucose 106 H, Calcium 8.8, Total Bilirubin 0.5, AST 37 H, ALT 23, Alkaline Phosphatase 106, Troponin I < 0.01, NT-Pro-B Natriuret Pep 799 H, Total Protein 8.3 H, Albumin 4.7, Globulin 3.6 H, Albumin/Globulin Ratio 1.3 01/18/25 00:14: Troponin I < 0.01 01/17/25 21:04 01/17/25 21:04 Response Orders (Tests/Meds): ED MEDICATIONS Generic Name Dose Route Start Last Admin Trade Name Charly PRN Reason Stop Dose Admin Acetaminophen 650 mg 01/18/25 00:51 Acetaminophen 325mg Tab PO 02/17/25 00:50 Q4HP PRN Fever or Mild Pain (1-3) Furosemide 40 mg 01/18/25 01:00 Furosemide 40mg/4ml Vial IV 02/17/25 00:59 BID DELIA Heparin Sodium (Porcine) 5,000 unit 01/18/25 09:00 Heparin Sodium 5,000 Unit/Ml Vial SUBCUT 02/17/25 08:59 TID DELIA Nicardipine HCl 25 mg/ Sodium 250 mls @ 50 mls/hr 01/18/25 00:58 Chloride IV 02/17/25 00:57 .Q5H DELIA Protocol 5 MG/HR Ondansetron HCl 4 mg 01/18/25 00:51 Ondansetron 4mg/2ml Vial IV 02/17/25 00:50 Q8HP PRN Nausea Sodium Chloride 10 ml 01/17/25 22:33 01/17/25 22:33 Sodium Chloride 0.9% 10ml Syr (Rad Only) IV 02/16/25 22:32 10 ml NEEDED PRN Administration Maintain IV Site Discontinued Medications Generic Name Dose Route Start Last Admin Trade Name Freque PRN Reason Stop Dose Admin Carvedilol 25 mg 01/17/25 21:17 01/17/25 21:28 Carvedilol 25mg Tablet PO 01/17/25 21:18 25 mg ONCE ONE Administration Iopamidol 70 ml 01/17/25 22:33 01/17/25 22:33 Iopamidol-370 (76%);100ml Bottle IV 01/17/25 22:34 70 ml ONCE ONE Administration Sodium Chloride 50 ml 01/17/25 22:33 01/17/25 22:33 0.9 % Sodium Chloride 50 Ml Vial IV 01/17/25 22:34 50 ml ONCE ONE Administration ORDERS Category Date Time Status CT angio chest PE protocol Stat Cat Scan 01/17/25 20:59 Completed CXR --portable [XR chest portable] Stat Exams 01/17/25 20:53 Completed POCUS Point of Care (ER Only) Stat Exams 01/17/25 20:53 Completed BNP [NT Pro Brain Natriuretic Pep.] Stat Lab 01/17/25 21:04 Completed Basic Metabolic Panel AMLAB Lab 01/18/25 06:00 Ordered Basic Metabolic Panel AMLAB Lab 01/19/25 06:00 Ordered Basic Metabolic Panel AMLAB Lab 01/20/25 06:00 Ordered CBC w/Auto Diff [Complete Blood Count Auto Diff] Stat Lab 01/17/25 21:04 Completed CMP [Comprehensive Metabolic Panel] Stat Lab 01/17/25 21:04 Completed Complete Blood Count Auto Diff AMLAB Lab 01/18/25 06:00 Ordered Complete Blood Count Auto Diff AMLAB Lab 01/19/25 06:00 Ordered Complete Blood Count Auto Diff AMLAB Lab 01/20/25 06:00 Ordered PT/PTT Stat Lab 01/17/25 21:04 Completed Trop I [Troponin I] Stat Lab 01/17/25 21:04 Completed Troponin I Q3H Lab 01/17/25 23:53 Completed Troponin I Q3H Lab 01/18/25 02:53 Ordered Troponin I Q6H Lab 01/18/25 04:00 Ordered Troponin I Q6H Lab 01/18/25 10:00 Ordered Urinalysis and Microscopic Stat Lab 01/17/25 20:46 Completed Urinalysis and Microscopic Stat Lab 01/17/25 20:53 Ordered Urine Culture Stat Micro 01/17/25 20:46 Received MDM Narrative Medical Decision Narrative: In summary, patient is a 69-year-old female PMHx CAD, angina, renal insufficiency, hypertension, hyperlipidemia, history of A-fib who presents to the ED for complaints of shortness of breath that started today and elevated blood pressure. Patient states that she is taking her losartan 25 mg daily blood pressure medication however continues to be hypertensive. She states that she is short of breath, worse on exertion. She states that today she has developed a cough. She does not wear oxygen at home, does wear CPAP at night for her sleep apnea. Upon initial evaluation patient is alert, oriented and cooperative. She is hypertensive, afebrile. She is short of breath, speaking in few sentences, respiratory rate after ambulating to the room from the restroom is approximately 28, oxygen saturation 95% on room air. Differential diagnoses include ACS, pulmonary embolism, dissection, pneumonia, pneumothorax, infectious process, among others. Discussed with patient and daughter that we will perform chest x-ray, labs, EKG, CT scan of chest. Records reviewed: 07/21/2024 patient had a myocardial perfusion scan which concluded perfusion defect in the mid to distal anterior and anterior apical LV vizcaino findings are suggestive of partial reversible ischemia. LVEF is calculated at 54%. On 08/04/2022 patient had a renal artery duplex which shows no evidence of significant renal artery stenosis. Care transferred to attending pending workup results <Tommie Bhardwaj DO - Last Filed: 01/18/25 01:17> Medical Records Medical records reviewed: Yes I reviewed the patient's medical records. Nate Inquiry Nate was queried for this patient: No Vital Signs Vital Signs: 01/17/25 20:18 01/17/25 21:32 Temperature 99.2 F Temperature Source Temporal Artery Scan Pulse Rate 95 H Pulse Rate [Right] 90 Respiratory Rate 20 Blood Pressure 239/106 H Blood Pressure [Right Arm] 198/88 H Blood Pressure Mean 135 Blood Pressure Mean [Right Arm] 124 Blood Pressure Source [Right Arm] Automatic Cuff Blood Pressure Position [Right Arm] Sitting 02 Sat by Pulse Oximetry 99 94 L Lab Data Labs: Lab Results 01/17/25 20:46: Urine Color Yellow, Urine Appearance Clear, Urine pH 6.0, Ur Specific [place] 1.020, Urine Protein Negative, Urine Glucose (UA) Negative, Urine Ketones Negative, Urine Blood Negative, Urine Nitrate Negative, Urine Bilirubin Negative, Urine Urobilinogen 0.2, Ur Leukocyte Esterase 1+ A, Urine RBC Occasional, Urine WBC None, Ur Squamous Epith Cells None, Urine Bacteria None 01/17/25 21:04: WBC 7.5, RBC 4.00 L, Hgb 11.9 L, Hct 36.8 L, MCV 92.0, MCH 29.8, MCHC 32.3, RDW 12.9, Plt Count 278, MPV 10.4, Neut % (Auto) 58.3, Lymph % (Auto) 30.9, Larue % (Auto) 6.5, Eos % (Auto) 3.3, Baso % (Auto) 0.5, Neut # (Auto) 4.4, Lymph # (Auto) 2.3, [place] # (Auto) 0.5, Eos # (Auto) 0.3, Baso # (Auto) 0.0, PT 10.3, INR 0.92, APTT 23.8, Sodium 141, Potassium 4.2, Chloride 102, Carbon Dioxide 27, Anion Gap 16.2 H, BUN 22 H, Creatinine 0.90, Estimated Creat Clear 67, Estimated GFR 62, Est GFR ( Amer) 75, Glucose 106 H, Calcium 8.8, Total Bilirubin 0.5, AST 37 H, ALT 23, Alkaline Phosphatase 106, Troponin I < 0.01, NT-Pro-B Natriuret Pep 799 H, Total Protein 8.3 H, Albumin 4.7, Globulin 3.6 H, Albumin/Globulin Ratio 1.3 01/18/25 00:14: Troponin I < 0.01 Response Orders (Tests/Meds): ED MEDICATIONS Generic Name Dose Route Start Last Admin Trade Name Freq PRN Reason Stop Dose Admin Acetaminophen 650 mg 01/18/25 00:51 Acetaminophen 325mg Tab PO 02/17/25 00:50 Q4HP PRN Fever or Mild Pain (1-3) Furosemide 40 mg 01/18/25 01:00 Furosemide 40mg/4ml Vial IV 02/17/25 00:59 BID DELIA Heparin Sodium (Porcine) 5,000 unit 01/18/25 09:00 Heparin Sodium 5,000 Unit/Ml Vial SUBCUT 02/17/25 08:59 TID DELIA Nicardipine HCl 25 mg/ Sodium 250 mls @ 50 mls/hr 01/18/25 00:58 Chloride IV 02/17/25 00:57 .Q5H DELIA Protocol 5 MG/HR Ondansetron HCl 4 mg 01/18/25 00:51 Ondansetron 4mg/2ml Vial IV 02/17/25 00:50 Q8HP PRN Nausea Sodium Chloride 10 ml 01/17/25 22:33 01/17/25 22:33 Sodium Chloride 0.9% 10ml Syr (Rad Only) IV 02/16/25 22:32 10 ml NEEDED PRN Administration Maintain IV Site Discontinued Medications Generic Name Dose Route Start Last Admin Trade Name Charly PRN Reason Stop Dose Admin Carvedilol 25 mg 01/17/25 21:17 01/17/25 21:28 Carvedilol 25mg Tablet PO 01/17/25 21:18 25 mg ONCE ONE Administration Iopamidol 70 ml 01/17/25 22:33 01/17/25 22:33 Iopamidol-370 (76%);100ml Bottle IV 01/17/25 22:34 70 ml ONCE ONE Administration Sodium Chloride 50 ml 01/17/25 22:33 01/17/25 22:33 0.9 % Sodium Chloride 50 Ml Vial IV 01/17/25 22:34 50 ml ONCE ONE Administration ORDERS Category Date Time Status CT angio chest PE protocol Stat Cat Scan 01/17/25 20:59 Completed CXR --portable [XR chest portable] Stat Exams 01/17/25 20:53 Completed POCUS Point of Care (ER Only) Stat Exams 01/17/25 20:53 Completed BNP [NT Pro Brain Natriuretic Pep.] Stat Lab 01/17/25 21:04 Completed Basic Metabolic Panel AMLAB Lab 01/18/25 06:00 Ordered Basic Metabolic Panel AMLAB Lab 01/19/25 06:00 Ordered Basic Metabolic Panel AMLAB Lab 01/20/25 06:00 Ordered CBC w/Auto Diff [Complete Blood Count Auto Diff] Stat Lab 01/17/25 21:04 Completed CMP [Comprehensive Metabolic Panel] Stat Lab 01/17/25 21:04 Completed Complete Blood Count Auto Diff AMLAB Lab 01/18/25 06:00 Ordered Complete Blood Count Auto Diff AMLAB Lab 01/19/25 06:00 Ordered Complete Blood Count Auto Diff AMLAB Lab 01/20/25 06:00 Ordered PT/PTT Stat Lab 01/17/25 21:04 Completed Trop I [Troponin I] Stat Lab 01/17/25 21:04 Completed Troponin I Q3H Lab 01/17/25 23:53 Completed Troponin I Q3H Lab 01/18/25 02:53 Ordered Troponin I Q6H Lab 01/18/25 04:00 Ordered Troponin I Q6H Lab 01/18/25 10:00 Ordered Urinalysis and Microscopic Stat Lab 01/17/25 20:46 Completed Urinalysis and Microscopic Stat Lab 01/17/25 20:53 Ordered Urine Culture Stat Micro 01/17/25 20:46 Received [facility] Narrative Medical Decision Narrative: In summary, patient is a 69-year-old female PMHx CAD, angina, renal insufficiency, hypertension, hyperlipidemia, history of A-fib who presents to the ED for complaints of shortness of breath that started today and elevated blood pressure. Patient states that she is taking her losartan 25 mg daily blood pressure medication however continues to be hypertensive. She states that she is short of breath, worse on exertion. She states that today she has developed a cough. She does not wear oxygen at home, does wear CPAP at night for her sleep apnea. Upon initial evaluation patient is alert, oriented and cooperative. She is hypertensive, afebrile. She is short of breath, speaking in few sentences, respiratory rate after ambulating to the room from the restroom is approximately 28, oxygen saturation 95% on room air. Differential diagnoses include ACS, pulmonary embolism, dissection, pneumonia, pneumothorax, infectious process, among others. Discussed with patient and daughter that we will perform chest x-ray, labs, EKG, CT scan of chest. Records reviewed: 07/21/2024 patient had a myocardial perfusion scan which concluded perfusion defect in the mid to distal anterior and anterior apical LV vizcaino findings are suggestive of partial reversible ischemia. LVEF is calculated at 54%. On 08/04/2022 patient had a renal artery duplex which shows no evidence of significant renal artery stenosis. Care transferred to attending pending workup results I was consulted by the CYNTHIA, and we discussed the complexity of problems being addressed. I approved the treatment and management plan for this patient's care in the emergency department, thus performing a substantive portion of the medical decision making. Tommie Bhardwaj, DO This is Dr. Bhardwaj. I received handoff of care on this patient at around 10 PM. I did independently evaluate this patient and obtained collateral history. She has a long medical history consisting of hypertension, hyperlipidemia, atrial fibrillation status post watchman, coronary artery disease, multiple sclerosis, and resolved breast cancer. She basically states that over the last several days she has had worsening shortness of breath and this is significantly worse on exertion. She also describes a sensation of orthopnea. Her daughter is here with her in the emergency department and states that she has been unable to walk for more than just a few steps at a time at home without having significant dyspnea. EKG was obtained and was personally interpreted by me and demonstrates normal sinus rhythm at a rate of 96 bpm, normal axis, no DC prolongation, narrow QRS, no QTc prolongation. No ST elevation or depression. No overt signs of ischemia. There are isolated PVCs present. Laboratory workup was personally turbid by me and demonstrates no leukocytosis or transfusable anemia PT/INR is normal. She has no significant electrolyte derangements or evidence of acute kidney injury. Her troponin and delta troponin are less than 0.01. BNP is elevated at 800. Urine studies are normal. We proceeded with a CTA of the chest which showed no evidence of pulmonary embolism on my independent interpretation. Official radiology read states that there is evidence of congestive heart failure with pulmonary edema. I did perform bedside ultrasound and was unable to obtain a long axis or short axis view. I was able to obtain a four-chamber apical which shows a relatively normal ejection fraction and no evidence of pericardial effusion or right heart strain. On subxiphoid view there is also no pericardial effusion. On ultrasound of the lungs the patient does have B-lines and 3 lung cornejo and no evidence of pleural effusion. Throughout the patient stay in the emergency department she has been significantly hypertensive. She has also had an elevated heart rate in the 90s. We have treated her with 25 mg of carvedilol and her blood pressure has not decreased. On repeat assessment her heart rate is 95 and her blood pressure is 239/106. My concern with this patient is that she is experiencing hypertensive urgency that is resulting in pulmonary edema. I had a long conversation with the patient and discussed possible follow-up in the clinic tomorrow with Dr. Bryan staff versus coming into the hospital. We discussed that if she does not come to the hospital that she could get worse and develop an oxygen requirement. She would like to be hospitalized for diuresis and optimization of her blood pressure medication regimen I ultimately had an interactive discussion with the internal medicine service who agreed to evaluate the patient in the emergency department. After discussion of their evaluation they agreed to admit the patient to their service and accept primary responsibility the patient moving forward.
--- OUTSIDE RECORDS SUMMARY | 2025-01-17 21:08 | XMS_ITS | Encounter Summary ---
Author Organization [facility] Address [address] [place] [address] Care Team Providers Care Custom Applicator Name Role Phone Edson Berkowitz MD Primary Care Provider + [phone] Charlie Hopkins MD Unavailable + [phone] Jonathan Jarrett DO Unavailable [phone] Encounter Details Date Type Department Care Team (Latest Contact Info) Description 01/16/2025 Travel Social History Tobacco Use Types Packs/Day Years Used Date Smoking Tobacco: Former Cigarettes 2 1974 Passive Smoke Exposure: Past Smokeless Tobacco: [...] on file documented as of this encounter Plan of Treatment Upcoming Encounters Date Type Department Care Team ( Contact Info) Description 06/13/2025 9:30 AM EDT Appointment [facility] Breast [facility] Center [facility] [place] [address] 06/13/2025 10:30 AM EDT Office Visit [facility] [address] [place] [address] Paola Tapia D, LOSS PREVENTION AUDITOR [address] [facility] [address] [place] [address] documented as of this encounter Visit Diagnoses Not on filedocumented in this encounter Additional Health Concerns Assessment Noted Time A fall risk assessment has been complete d for the patient 01/16/2025 2:54 PM EDT A Body Mass Index follow-up plan has been documented for the patient 01/16/2025 3:25 PM EDT documented as of this encounter Care Teams Custom Applicator Relationship Specialty Start Date End Date Edson Berkowitz MD [address] [place] [address] PCP - General 08/17/20 Charlie Hopkins MD [address] [place] [address] Service Attending Neurology 05/22/21 Jonathan Jarrett DO [address] [place] [phone] Consulting Physician Neurology 08/29/21 documented as of this encounter
--- OUTSIDE RECORDS SUMMARY | 2025-01-17 21:08 | XMS_ITS | Encounter Summary ---
Author Organization [facility] Address [address] [place] [address] Care Team Providers Care Accountant Systems Name Role Phone Edson Berkowitz MD Primary Care Provider + [phone] Charlie Hopkins MD Unavailable + [phone] Jonathan Jarrett DO Unavailable [phone] Encounter Details Date Type Department Care Team (Late st Contact Info) Description 04/25/2015 Abstract [facility] [address] [facility]. [id number] [place] [address] Radiation Oncology, Physician, [address] [place], [place] [id number] Social History Tobacco Use Types Packs/Day Years Used Date Smoking Tobacco: Never Assessed Comments Unknown Sex and Gender Information Value Date Recorded Sex Assigned at Not on file Legal Sex Female 7:38 PM EDT Gender Identity Not on file Sexual Orientation Not on file documented as of this encounter Plan of Treatment Upcoming Encounters Date Type Department Care Team (Late st Contact Info) Description 06/13/2025 9:30 AM EDT Appointment [facility] [address] [place] [address] 06/13/2025 10:30 AM EDT Office Visit [facility] [address] [place] [address] Paola Tapia, WAFER LINE WORKER [address] [place] [address] documented as of this encounter Visit Diagnoses Not on filedocumented in this encounter Care Teams Accountant Systems Relationship Specialty Start Date End Date Edson Berkowitz MD [address] [place] [address] PCP - General 08/17/20 Charlie Hopkins MD [address] [place] [address] Service Attending Neurology 05/22/21 Jonathan Jarrett DO [address] [place] [address] Consulting Physician Neurology 08/29/21 documented as of this encounter
--- OUTSIDE RECORDS SUMMARY | 2025-01-17 21:08 | XMS_ITS | Encounter Summary ---
Author Organization [facility] Address [address] [place] [address] Care Team Providers Care General Maintenance Mechanic Name Role Phone Edson Berkowitz MD Primary Care Provider + [phone] Charlie Hopkins MD Unavailable + [phone] Jonathan Jarrett DO Unavailable [phone] Encounter Details Date Type Department Care Team (Latest Contact Info) Description 01/11/2025 Travel Social History Tobacco Use Types Packs/Day [...] AM EDT Appointment [facility] [address] [address] 06/13/2025 10:30 AM EDT Office Visit [facility] [address] [place] [address] aPola Tapia, WARD SERVICE SUPERVISOR [address] [facility] [address] [place] [address] documented as of this encounter Visit Diagnoses Not on filedocumented in this encounter Additional Health Concerns Assessment Noted Time A fall risk assessment has been complete d for the patient 06/09/2024 11:21 AM EST A Body Mass Index follow-up plan has been documented for the patient 01/15/2024 2:32 PM EDT documented as of this encounter Care Teams General Maintenance Mechanic Relationship Specialty Start Date End Date Edson Berkowitz MD [address] [place] [address] PCP - General 08/17/20 Charlie Hopkins MD [address] [place] [address] Service Attending Neurology 05/22/21 Jonathan Jarrett DO [address] [place] [address] Consulting Physician Neurology 08/29/21 documented as of this encounter
--- OUTSIDE RECORDS SUMMARY | 2025-01-17 21:08 | XMS_ITS | Clinical Summary ---
Author Organization [facility] Address [address] [place] [address] Care Team Providers Care Digital Sales Executive Name Role Phone Edson Berkowitz MD Primary Care Provider + [phone] Allergies Active Allergy Reactions Criticality Noted Date Comments Diltiazem Swelling,Other (See Comments) Low 2021 Medications atorvastatin (LIPITOR) 40 MG tablet Take 2 tablets by mouth Every Night. Active aspirin 81 MG EC tablet Take 1 tablet by mouth Daily. OTC Active vitamin B-12 (CYANOCOBALAMIN ) 1000 MCG tablet Take 1 tablet by mouth Daily. OTC Active ascorbic acid (VITAMIN C) 500 MG tablet Take 2 tablets by mouth Daily. OTC Active multivitamin with minerals tablet tablet Take 1 tablet by mouth Daily. OTC- Centrum silver women 50+ Active Calcium Carb-Cholecalci ferol (CALTRATE 600+D3 PO) Take 1 each by mouth 2 (Two) Times a Day. OTC Active Melatonin 10 MG tablet Take 1 tablet by mouth Every Night. OTC Active acetaminophen (TYLENOL) 325 MG tablet Take 2 tablets by mouth Every 6 (Six) Hours As Needed for Mild Pain. 2 Active calcium carbonate (TUMS) 500 MG chewable tablet Chew 2 tablets 3 (Three) Times a Day As Needed for Indigestion or Heartburn. 2 Active losartan (COZAAR) 25 MG tablet Take 1 tablet by mouth Daily. 3 Active omeprazole (priLOSEC) 40 MG capsule Take 1 capsule by mouth Daily. 3 Active tamsulosin (FLOMAX) 0.4 MG capsule 24 hr capsule 4 Active Active Problems Problem Noted Date Diagnosed Date WINIFRED (obstructive sleep apnea) 06/04/2022 TOLEDO (dyspnea on exertion) 06/04/2022 Implantable loop recorder present 05/19/2022 Pulmonary HTN 05/19/2022 Overview (05/19/2022): Echo, 10/30/2021: Estimated right ventricular systolic pressure from tricuspid regurgitation is moderately elevated (45-55 mmHg). Class 2 obesity in adult 02/25/2022 Presence of Watchman left atrial appendage closu re device 02/22/2022 Overview (04/01/2022): CTA chest, 03/27/2022: Appendage closure device noted in place without evidence of persistent opacification. Paroxysmal AF 10/30/2021 Overview (05/19/2022): a. Loop recorder implant b. Echocardiogram, 10/30/2021: EF 60 to 65%. Normal LV systolic function. Left atrium 4.3 cm c. Developed rectal bleeding with discontinuation of Xarelto d. S/P Watchman device 02/12/2022 Personal history of transien t ischemic attack (TIA), and cerebral infarction without residual deficits 10/30/2021 CAD 10/30/2021 Overview (01/19/2022): a. [facility] 2019: 40% mid LAD lesion Chronic diastolic CHF 10/30/2021 Overview (01/19/2022): Echocardiogram, 10/30/2021: EF 60 to 65%. Normal LV systolic function. Neurologic spells (generaliz ed weakness and right arm tremors) 10/30/2021 COPD (chronic obstructive pulmonary disease) Multiple sclerosis 10/30/2021 Neuropathy 10/30/2021 HTN (hypertension) 10/30/2021 Hyperglycemia 10/30/2021 Malignant neoplasm of breast in female, estrogen receptor positive 06/07/2021 Premature atrial contractions 11/03/2019 Overview (01/19/2022): sarai Holter monitor, 2020, with 12.5 % PAC burdern Hyperlipidemia Resolved Problems Problem Noted Date Diagnosed Date Resolved Date Rectal bleeding 02/22/2022 05/19/2022 Hematochezia 10/30/2021 11/09/2021 Chronic anticoagulation 10/30/202102/05 ANTHONY on ckd 3 (baseline cr ~1.4-1.5) 10/30/2021 11/09/2021 Acute bronchitis due to Rhinovirus 10/30/2021 11/09/2021 UTI (urinary tract infection) 10/30/2021 11/09/2021 Acute blood loss anemia (due to gi bleed) 10/30/2021 11/09/2021 Falls 10/30/2021 11/09/2021 Generalized weakness 10/30/2021 022 Encounters Date Type Department Care Team Description 10/28/2024 1:45 PM EDT Office Visit [facility] SLEEP MEDICINE [address] [facility] [address] [place] [address] Thee Vickers, NIKITA Obstructive sleep apnea, adult (Primary Dx); Morbid (severe) obesity due to excess calories 10/28/2024 Travel from Last 3 Months Immunizations Immunization Administration Dates Next Due Arexvy (RSV, Adults 60+ yrs) 12/15/2022 COVID-19 (MODERNA) 1st,2nd,3 rd Dose Monovalent 07/04/2020,06/06/2020 COVID-19 (MODERNA) BIVALENT 12+YRS 12/18/2021 COVID-19 (MODERNA) Monovalen t Original Booster 02/06/2021 Flu Vaccine Split Quad 01/17/2019 Fluzone (or Fluarix & Flulav al for VFC) >6mos 01/17/2019 Fluzone High-Dose 65+YRS 12/17/2023 Fluzone High-Dose 65+yrs 12/15/2022,01/05,11/27/2020,2019 Fluzone Quad >6mos (Multi-dose) 01/28/2018,12/22 Pneumococcal Conjugate 20-Va lent (PCV20) 02/03/2022 Shingrix 05/20/2019,01/17/2019 Td (TDVAX) 06/06/1996 Tdap 02/02/2024 Family History Medical History Relation Name Comments Cancer Father Diabetes Mother Hypertension Mother Seizures Paternal Aunt Diabetes Sister Hypertension Sister Relation Name Status Comments Father Mother Paternal Aunt Sister Social History Tobacco Use Types Packs/Day Years [...] or training? Not on file Preferred Language Tajik 02/25/2022 Comments No Sex and Gender Information Value Date Recorded Sex Assigned at Female 10/21/2024 9:12 AM EDT Legal Sex Female 11:48 AM EDT Gender Identity Not on file Sexual Orientation Straight 10/21/2024 9: 12 AM EDT Last Filed Vital Signs Vital Sign Reading Time Taken Comments Blood Pressure 148/70 10/28/2024 1:32 PM EDT Pulse 77 10/28/2024 1:32 PM EDT Temperature 36.9 C (98.5 F) 10/28/2024 1:32 PM EDT Respiratory Rate 20 02/12/2023 2:36 PM EST Oxygen Saturation 95% 10/28/2024 1:32 PM EDT Inhaled Oxygen Concentration - - Weight 82.6 kg (182 lb) 10/28/2024 1:32 PM EDT Height 154.9 cm (5' 1 ) 10/28/2024 1:32 PM EDT Body Mass Index 34.39 10/28/2024 1:32 PM EDT Plan of Treatment Upcoming Encounters Date Type Department Care Team (Late st Contact Info) Description 03/06/2025 9:15 AM EST Office Visit [facility] SLEEP MEDICINE [address] [facility] [address] [place] [address] Thee Vickers, BANK ADVISOR [address] [place] [address] Health Maintenance Due Date Last Done Comments DXA SCAN 1954 COLOGUARD 07/11/1999 COLON CANCER SCREENING 5 YEA R SIGMOIDOSCOPY 07/11/1999 COLONOSCOPY 07/11/1999 COLORECTAL CANCER SCREENING 07/11/1999 CT COLONOGRAPHY 07/11/1999 FECAL OCCULT BLOOD TEST 07/11/1999 FIT Testing (1 year) 07/11/1999 LIPID PANEL 10/19/2021 10/19/2020 ANNUAL WELLNESS VISIT 11/05/2021 HEPATITIS C SCREENING 11/05/2021 LUNG CANCER SCREENING 03/27/2023 03/27/2022, 022 INFLUENZA VACCINE 11/04/2024 12/17/2023, , 01/28/2022, Additional history exists COVID-19 Vaccine ( - 2024-2 6 season) 2024 12/18/2021, 02/06/2021, 07/04/2020, Additional history exists MAMMOGRAM 06/09/2026 06/09/2024, 0309/2024, 06/09/2023, Additional history exists TDAP/TD VACCINES (3 - Td or Tdap) 02/01/2034 024, 06/06/1996 ZOSTER VACCINE Completed 05/20/2019, 01/17/2019 Pneumococcal Vaccine 50+ Completed 02/03/2022 Medical Devices Implanted Type Area Capacity Planning Analyst Device Identifier Shelf Expiration Date Model / Serial / Lot Dev Cls Lee Ann Watchman/Flx 27mm - [id number] Implanted:Qty: 1 on 02/12/2022 by Mike Jimenez DO at [facility] Implant [employer] 10/07/2024 [id number] / / [id number] Loop Recorder [employer] Online Description:Card on chart Procedures Procedure Name Priority Date/Time Associated Diagnosis Comments CT ANGIOGRAM CHEST W WO CONTRAST Routine 03/27/2022 11:07 AM EST Paroxysmal A-fib from Last 3 Months or Most Recently Relevant to Health Maintenance Results * CT Angiogram Chest (03/27/2022 11:07 AM EST) Anatomical Region Laterality Modality Chest, Vascular N/A Computed Tomogra phy 03/27/2022 11:3 1 PM EST Impressions 03/27/2022 11:33 PM EST 1. Cardiac enlargement without pericardial effusion. 2. No anomalous pulmonary venous return. 3. Appendage closure device noted in place without evidence of persistent opacification. This report was finalized on 03/27/2022 11:33 PM by Garfield Abreu. Narrative 03/27/2022 11:33 PM EST DATE OF EXAM: 03/27/2022 10:40 AM PROCEDURE: CT ANGIOGRAM CHEST- INDICATIONS: afib; I48.0-Paroxysmal atrial fibrillation TECHNIQUE: Contiguous axial imaging was obtained from the thoracic inlet through the upper abdomen following the intravenous administration of 70 mL of Isovue 370. Reconstructed coronal and sagittal images were also obtained. Automated exposure control and iterative reconstruction methods were used. The radiation dose reduction device was turned on for each scan per the ALARA (As Low as Reasonably Achievable) protocol. COMPARISON: None. FINDINGS: Four-chamber cardiac enlargement without pericardial effusion. Patent, nonaneurysmal thoracic aorta. Central pulmonary arteries are grossly patent. No anomalous pulmonary venous return. Appendage closure device noted in place without evidence of persistent opacification.. Central airways are patent. Esophagus courses posterior to the left atrium. Extended lung windows are grossly clear. Procedure Note Garfield Abreu MD - 03/27/2022 DATE OF EXAM: 03/27/2022 10:40 AM PROCEDURE: CT ANGIOGRAM CHEST- INDICATIONS: afib; I48.0-Paroxysmal atrial fibrillation TECHNIQUE: Contiguous axial imaging was obtained from the thoracic inlet through the upper abdomen following the intravenous administration of 70 mL of Isovue 370. Reconstructed coronal and sagittal images were also obtained. Automated exposure control and iterative reconstruction methods were used. The radiation dose reduction device was turned on for each scan per the ALARA (As Low as Reasonably Achievable) protocol. COMPARISON: None. FINDINGS: Four-chamber cardiac enlargement without pericardial effusion. Patent, nonaneurysmal thoracic aorta. Central pulmonary arteries are grossly patent. No anomalous pulmonary venous return. Appendage closure device noted in place without evidence of persistent opacification.. Central airways are patent. Esophagus courses posterior to the left atrium. Extended lung windows are grossly clear. IMPRESSION: 1. Cardiac enlargement without pericardial effusion. 2. No anomalous pulmonary venous return. 3. Appendage closure device noted in place without evidence of persistent opacification. This report was finalized on 03/27/2022 11:33 PM by Garfield Abreu. Garfield [facility] ORDERABLES Final Res ult from Last 3 Months or Most Recently Relevant to Health Maintenance Insurance MEDICARE A & B Advance Directives Documents on File Type Date Recorded Patient Miscellaneous Machine Operator Expl anation LIVING WILL - SCAN 02/10/2022 1:57 PM JAZMIN NG WILL 2021 * No CPR (Do Not Attempt to Resuscitate) (Latest Code Status on File) Date Activated Date Inactivated Comments 02/25/2022 9:46 PM 03/07/2022 6:39 PM Question Answer Comments Code Status (Patient has no pulse and is not breathing): No CPR (Do Not Attempt to Resuscitate) Medical Interventions (Patie nt has pulse or is breathing): Full Support * CPR (Attempt to Resuscitate) Date Activated Date Inactivated Comments 02/25/2022 4:51 PM 02/25/2022 9:46 PM Question Answer Comments Code Status (Patient has no pulse and is not breathing): CPR (Attempt to Resuscitate) Medical Interventions (Patie nt has pulse or is breathing): Full Support * CPR (Attempt to Resuscitate) Date Activated Date Inactivated Comments 02/22/2022 1:08 PM 02/24/2022 2:52 PM Question Answer Comments Code Status (Patient has no pulse and is not breathing): CPR (Attempt to Resuscitate) Medical Interventions (Patie nt has pulse or is breathing): Full Support Level Of Support Discussed With: Patient * CPR (Attempt to Resuscitate) Date Activated Date Inactivated Comments 11/11/2021 6:51 AM 02/12/2022 10:05 AM No physician signature needed for this code status. [place] as Signed. * CPR (Attempt to Resuscitate) Date Activated Date Inactivated Comments 10/30/2021 8:14 AM 11/09/2021 2:51 PM Question Answer Comments Code Status (Patient has no pulse and is not breathing): CPR (Attempt to Resuscitate) Medical Interventions (Patie nt has pulse or is breathing): Full Support Care Teams Digital Sales Executive Relationship Specialty Start Date End Date Edson Berkowitz MD [address] [place] [address] [address] [facility] [address] [place] [address] PCP - General Adolescent Medicine 11/09/21
--- OUTSIDE RECORDS SUMMARY | 2025-01-17 21:08 | XMS_ITS | Clinical Summary ---
Author Organization [facility] Address [address] [place] [address] Care Team Providers Care Trade Clerk Name Role Phone Edson Berkowitz MD Primary Care Provider + [phone] Charlie Hopkins MD Unavailable + [phone] Jonathan Jarrett DO Unavailable [phone] Allergies Active Allergy Reactions Criticality Noted Date Comments Diltiazem Other - please docum ent in the comment field Low 12/31/2021 Medications Calcium Carbonate-Vit D-Min (Caltrate 600+D Plus Minerals) 600-800 MG-UNIT chewable tablet Take 1 tablet twice daily 09/24/2015 Active Multiple Vitamins-Minera ls (CENTRUM SILVER 50+WOMEN PO) TAKE 1 TABLET DAILY. 11/04/2019 Active omeprazole (PriLOSEC) [address] capsule 1 cap(s) orally once a day Active Cyanocobalamin ER (Vitamin B12) 1000 MCG tablet controlled-rele ase 1 tab(s) orally once a day Active aspirin 81 MG EC tablet 1 tab(s) orally once a day Active atorvastatin (Lipitor) 40 MG tablet Take 1 tablet (40 mg) by mouth daily. 04/24/2021 Active acetaminophen (Tylenol) 325 MG tablet Take 2 tablets (650 mg) by mouth. 03/07/2022 Active Melatonin 10 MG tablet Take 10 mg by mouth 1 (one) time each day. Active tamsulosin (Flomax) 0.4 MG 24 hr capsule Take 1 capsule (0.4 mg) by mouth daily. 04/04/2022 Active loratadine (Claritin) 10 MG tablet Take 1 tablet (10 mg) by mouth daily. 04/13/2023 Active losartan (Cozaar) 25 MG tablet Take 1 tablet by mouth daily. 12/31/2024 Active atorvastatin (Lipitor) 80 MG tablet 01/15/2025 Active Active Problems Problem Noted Date Diagnosed Date Anemia 01/12/2023 01/12/2023 Dizziness 01/12/2023 01/12/2023 Forehead contusion 01/12/2023 01/12/2023 Left ankle sprain 01/12/2023 01/12/2023 Nausea 01/12/2023 01/12/2023 Numbness 01/12/2023 01/12/2023 Rectal bleeding 01/12/2023 01/12/2023 Injury of kidney 01/12/2023 01/12/2023 Renal insufficiency 01/12/2023 01/12/2023 Shoulder fracture, left 01/12/2023 01/13/20 23 Status post placement of implantable loop record er 01/12/2023 01/12/2023 Viral syndrome 01/12/2023 01/12/2023 Dyspnea 06/04/2022 WINIFRED (obstructive sleep apnea) 06/04/2022 Pulmonary HTN 05/19/2022 Overview (06/16/2022): Echo, 10/30/2021: Estimated right ventricular systolic pressure from tricuspid regurgitation is moderately elevated (45-55 mmHg). Class 2 obesity in adult 02/25/2022 Implantable loop recorder present 02/22/2022 Overview (06/16/2022): CTA chest, 03/27/2022: Appendage closure device noted in place without evidence of persistent opacification. Chronic diastolic CHF (congestive heart failure) 10/30/2021 Overview (06/16/2022): Echocardiogram, 10/30/2021: EF 60 to 65%. Normal LV systolic function. COPD (chronic obstructive pulmonary disease) Hyperglycemia 10/30/2021 Multiple sclerosis 10/30/2021 Neuropathy 10/30/2021 Atrial fibrillation 10/30/2021 Overview (01/12/2023): a. Loop recorder implant b. Echocardiogram, 10/30/2021: EF 60 to 65%. Normal LV systolic function. Left atrium 4.3 cm c. Developed rectal bleeding with discontinuation of Xarelto d. S/P Watchman device 02/12/2022 Spells of trembling 10/30/2021 Premature atrial contractions 11/03/2019 Overview (06/16/2022): a. Holter monitor, 2020, with 12.5 % PAC burdern Urinary urgency 05/16/2019 Arrhythmia 03/22/2019 Coronary artery disease 06/21/2018 Overview (01/12/2023): a. [facility] 2019: 40% mid LAD lesion Abnormal stress test 06/21/2018 HLD (hyperlipidemia) 06/21/2018 Imbalance 10/12/2017 Mild vitamin D deficiency 09/24/2015 Breast cancer 03/26/2015 Cancer Staging:Clinical stage from 04/25/2015:Stage IA(T1c, N0, M0) - Unsigned HTN (hypertension) 10/24/2013 Resolved Problems Problem Noted Date Diagnosed Date Resolved Date Bronchitis 01/12/2023 01/12/2023 12/25/2024 Cellulitis 01/12/2023 01/12/2023 12/25/2024 Chest pain 01/12/2023 01/12/2023 12/25/2024 Fall 01/12/2023 01/12/2023 12/25/2024 Spasticity 05/16/2019 12/25/2024 Encounters Date Type Department Care Team Description 01/16/2025 4:00 PM EDT Office Visit [facility] [address] [place] [address] Jonathan Jarrett DO Multiple sclerosis, relapsing-remitting (Primary Dx) 01/16/2025 Travel 01/11/2025 7:14 AM EDT - 01/11/2025 11:59 PM EDT Hospital Encounter [facility] [address] [place] [address] Multiple sclerosis Discharge Disposition: Home or Self Care 01/11/2025 6:57 AM EDT - 01/11/2025 7:13 AM EDT Hospital Encounter [facility] [address] [place] [address] Multiple sclerosis Discharge Disposition: Home or Self Care 01/11/2025 Travel from Last 3 Months Immunizations Immunization Administration Dates Next Due Influenza, high-dose, quadrivalent 12/15,01/28/2022,11/27/2020,2019 Influenza, injectable, quadrivalent 01/28/2018,0 12/22/2016 Influenza, injectable, quadr ivalent, preservative free 01/17/2019 Influenza, seasonal, injectable 01/17/2019 Pneumococcal 20-janay Conj Vaccine 02/03/2022 Rsvpref, Recombinant, Protei n Subunit, Adjuvent 12/15/2022 TD (adult), 2 Lf tetanus tox oid, preservative free, adsorbed 06/06/1996 Zoster, Recombinant 05/20/2019,01/17/2019 Family History Medical History Relation Name Comments Arthritis Daughter Amaris Quach Diabetes Daughter Amaris Quach Stroke Daughter Amaris Quach Brain cancer Father Diabetes Mother Anali Braden Colon cancer Other Family history of colon cancer Diabetes Sibling 1 Hypertension Sibling 2 Relation Name Status Comments Daughter Amaris Quach Alive Father Mother Anali Braden Other Sibling 1 Sibling 2 Social History Tobacco Use Types Packs/Day Years [...] on file Sexual Orientation Not on file Last Filed Vital Signs Vital Sign Reading Time Taken Comments Blood Pressure 158/78 01/16/2025 2:56 PM EDT Pulse 85 01/16/2025 2:48 PM EDT Temperature 36.7 C (98 F) 01/16/2025 2:48 PM EDT Respiratory Rate 16 06/09/2024 11:19 AM EST Oxygen Saturation 95% 01/16/2025 2:48 PM EDT Inhaled Oxygen Concentration - - Weight 70.8 kg (156 lb 1.4 oz) 06/09/2024 11:19 AM EST Height 154.9 cm (5' 1 ) 06/09/2024 9:56 AM EST Body Mass Index 29.49 06/09/2024 9:56 AM EST Plan of Treatment Upcoming Encounters Date Type Department Care Team (Late st Contact Info) Description 06/13/2025 9:30 AM EDT [facility]ointment [facility] [address] [place] [address] 06/13/2025 10:30 AM EDT Office Visit [facility] [address] [facility], [address] [place] [address] Paola Tapia, TOP LIFT AND AUTOMATIC WINDOW REPAIRER [address] [address] Health Maintenance Due Date Last Done Comments [facility]-Bone Density Scan 1955 [facility]-Hepatitis C Screening 1955 [facility]-Medicare Annual Wellness (AWV) 1955 [facility]-/Child/Adol SDOH Screenings 1955 [facility]- SDOH Screenings 1972 [facility]-Adult SDOH Screenings 1972 CT Colonography 07/11/1999 Colonoscopy 07/11/1999 FIT-DNA 07/11/1999 FIT 07/11/1999 FOBT 07/11/1999 Sigmoidoscopy 07/11/1999 [facility]-Colorectal Cancer Screening 07/11/1999 [id number] Vaccine ( season) 2024 12/18/2021, 02/06/2021, 07/04/2020, Additional history exists [facility]-Depression Screening 06/09/2025 06/09/2024 [facility]-DTaP,Tdap,and Td Vaccines (2 - Td or Tdap) 02/01/2034 02/02/2024, 06/06/1996 [facility]-Zoster Vaccines Completed 05/20/2019, 9 [facility]-Diabetes: Hemoglobin A1C Discontinued 10/31/2021, 10/19/2020 [facility]-Pneumococcal Vaccine: 50+ Years Completed 02/03/2022 [facility]-RSV Vaccine: 60+ Years or Completed 12/15/2022 [facility]-Influenza Vaccine Completed 12/12/2024 , 12/17/2023, 12/15/2022, Additional history exists [facility]-Obesity Intervention Completed 025, 01/15/2024, 07/16/2023, Additional history exists HPV Vaccines Aged Out No longer eligi ble based on patient's age to complete this topic [facility]-HIB Vaccines Aged Out No longer e ligible based on patient's age to complete this topic [facility]-Hepatitis A Vaccines Aged Out No longer eligible based on patient's age to complete this topic [facility]-IPV Vaccines Aged Out No longer e ligible based on patient's age to complete this topic [facility]-Rotavirus Vaccines Aged Out No lo nger eligible based on patient's age to complete this topic Medical Devices Implanted Type Area Private Mortgage Banker Safe Device Identifier Shelf Expiration Date Model / Serial / Lot EVERFANS Cardiac Lux Dx-05/23/2019 Implanted:05/07 (Quantity not on file) Implant Chest Yoopay [id number] / [id number] / Description:Patient states t his has been explanted but will need CXR prior to next MRI scan to determine it has been removed, acr 12/02/24 Watchman Lee Ann-10/07/2024 Implanted:07/2024 by Mike Jimenez DO (Quantity not on file) Left Atrial Appendage Closure Heart Yoopay [id number] / [id number] / Procedures Procedure Name Priority Date/Time Associated Diagnosis Comments MR HEAD WO IV CONTRAST Routine 01/11/2025 9:24 AM EDT Multiple sclerosis XR CHEST 1 VIEW Routine 01/11/2025 7:42 AM EDT Multiple sclerosis HEMOGLOBIN A1C Routine 10/19/2020 10:02 AM EDT Hyperlipemia Hypertension from Last 3 Months or Most Recently Relevant to Health Maintenance Results * MR Head wo IV Contrast [...] error, please notify the sender immediately at [phone] and permanently delete the original report and destroy any copies or printouts. Narrative 01/11/2025 7:54 PM EDT [facility] - Phone Outpatient NAME: Norah Carlisle DATE OF EXAM: 01/11/2025 Patient No: [id number] Physician: Nicolasa Date of : 1955 Past [...] Carlisle DATE OF EXAM: 01/11/2025 Patient No: [id number] Physician: Kolby^Jonathan Date of : 1955 Past Medical/Surgical History [...] in error, pleasenotify the sender immediately at [phone] and permanently delete theoriginal report and destroy any copies or printouts. Jonathan J Chalkley DO IMG MRI PROCEDURES Final Re sult * XR Chest 1 View (01/11/2025 7:42 [...] Noonan MD IMG XR PROCEDURES Final Result * (ABNORMAL) Hemoglobin A1c (10/19/2020 10:02 AM EDT) Hemoglobin A1c 5.7(H) <5.7 % 10/19/2020 12:10 PM EDT [facility] Blood Venous blood specimen / Unknown Venipuncture / Unknown 10/19/2020 10:02 AM EDT 10/19/2020 10:02 AM EDT Narrative [facility] - 10/19/2020 12:10 PM EDT HA1C Interpretive Data: Diagnosis of Diabetes: Diabetic > or = 6.5% Pre-diabetic 5.7 to 6.4% Non-diabetic < or = 5.6% Glycemic Targets for Type I and Type II Diabetics: Non- Adults <7.0% Adults <6.0% Children and Adolescents <7.5% Source: [place] [employer]. Standards of medical care in diabetes,2017. Diabetes Care.2017:40 (suppl 1):S1-S135. HbA1c assay performed by an ion-exchange chromatography method that is certified traceable to the DCCT. us Christina Rangel MD LAB BLOOD ORDERABLES Final R esult [facility] [address] [place] [address] from Last 3 Months or Most Recently Relevant to Health Maintenance Insurance MEDICARE Member Subscriber Plan / Payer (Ef fective 2015-Present) Name:Norah Carlisle Member ID:[id number] Relation to Subscriber:Self Name:Norah Carlisle Subscriber ID:[id number] Payer ID:MEDICARE Group ID:Not on file Type:Medicare Address: [place] [phone] Care Teams Trade Clerk Relationship Specialty Start Date End Date Edson Berkowitz MD [address] [place] [address] PCP - General 08/17/20 Charlie Hopkins MD [address] [place] [address] Service Attending Neurology 05/22/21 Jonathan Jarrett DO [address] [place] [id number] Consulting Physician Neurology 08/29/21
--- OUTSIDE RECORDS SUMMARY | 2025-01-17 21:08 | XMS_ITS ---
Author Organization [facility] Address [address] [place] [address] Care Team Providers Care Financial Services Education Consultant Name Role Phone Edson Berkowitz MD Primary Care Provider + [phone] Active Problems Problem Noted Date Diagnosed Date [...] deficits 10/30/2021 CAD 10/30/2021 Overview (01/19/2022): a. [facility] 2019: 40% mid LAD lesion Chronic diastolic CHF 10/30/2021 Overview (01/19/2022): Echocardiogram, 10/30/2021: EF 60 to 65%. Normal LV systolic function. Neurologic spells (generaliz ed weakness and right arm tremors) 10/30/2021 COPD (chronic obstructive pulmonary disease) Multiple sclerosis 10/30/2021 Neuropathy 10/30/2021 HTN (hypertension) 10/30/2021 Hyperglycemia 10/30/2021 Malignant neoplasm of breast in female, estrogen receptor positive 06/07/2021 Premature atrial contractions 11/03/2019 Overview (01/19/2022): a. Holter monitor, 2020, with 12.5 % PAC burdern Hyperlipidemia Current Treatment and Therapy Plans No current plan information found. Past Treatment and Therapy Plans No past plan information found. Lifetime Dose Tracking * Chemical Lifetime Dose Automatic Entry Manual Entr y Cumulative Air Kerma 101 mGy 0 mGy 101 mGy Fluoro Time 3.2 Minutes 0 Minutes 3.2 Minutes Resolved Problems Problem Noted Date Diagnosed Date [...]
[2025-01-17 21:24] LABS: RBC,Urine Occasional #/hpf (0-3)
[2025-01-17] MEDS: CARVEDILOL 25MG TABLET 25 MG PO (21:28)
[2025-01-17 21:32] VITALS: BP 239/106; PULSE 95; O2SAT 94
[2025-01-17 21:54] LABS: Hematocrit 36.8 % (37.0-47.0); Hemoglobin 11.9 g/dL (12.2-16.2); Immature Granulocytes % 0.5 %; Mean Corpuscular HGB Conc 32.3 g/dL (31.8-35.4); Mean Corpuscular Hemoglobin 29.8 pg (27.0-31.2); Mean Corpuscular Volume 92.0 fl (81-99); Nucleated Red Blood Cells % 0 %; Platelet Count 278 K/mm3 (142-424); Red Blood Count 4.00 M/mm3 (4.20-5.40); Red Cell Distribution Width-SD 43.1 fL; White Blood Count 7.5 K/mm3 (4.8-10.8)
[2025-01-17 21:59] LABS: Albumin Level 4.7 g/dl (3.5-5.0); Chloride 102 mmol/L (98-107); Potassium 4.2 mmoL/L (3.5-5.1); Sodium 141 mmol/L (136-145)
[2025-01-17 22:01] LABS: Blood Urea Nitrogen 22 mg/dl (7-17); Creatinine Clearance Estimated 67 mL/min (50-200); Creatinine,Serum 0.90 mg/dl (0.52-1.04); Estimated Glomerular Filt Rate 62 ml/min (>60); GFR (African American) 75 ML/MIN (>60)
[2025-01-17 22:02] LABS: Alanine Aminotransferase 23 U/L (12-78); Albumin/Globulin Ratio 1.3 (1.1-1.8); Alkaline Phosphatase 106 U/L (38-126); Anion Gap 16.2 mEq/L (5-15); Aspartate Amino Transferase 37 U/L (14-36); Bilirubin,Total 0.5 mg/dl (0.2-1.3); Calcium 8.8 mg/dl (8.4-10.2); Carbon Dioxide 27 mmol/L (22.0-30.0); Globulin 3.6 g/dL (1.3-3.2); Glucose 106 mg/dl (74-100); Total Protein,Serum 8.3 g/dl (6.3-8.2)
[2025-01-17 22:05] LABS: Activated Partial Thrombo Time 23.8 seconds (22.8-30.6); INR 0.92 (0.9-1.1); Prothrombin Time 10.3 seconds (10.1-12.5)
[2025-01-17 22:12] LABS: NT Pro Brain Natriuretic Pep. 799 pg/mL (0-125)
[2025-01-17 22:15] LABS: Troponin I < 0.01 ng/ml (0.00-0.034)
[2025-01-17] MEDS: SODIUM CHLORIDE 0.9% 10ML SYR (RAD ONLY) 10 ML IV (22:33)
[2025-01-17] MEDS: 0.9 % SODIUM CHLORIDE 50 ML VIAL IV (22:33)
[2025-01-17] MEDS: IOPAMIDOL-370 (76%);100ML BOTTLE 70 ML IV (22:33)
[2025-01-18] VITALS (70 sets, daily range): BP systolic 109–203; BP diastolic 60–93; PULSE 52–111; RESP 12–22; TEMP 36.5–36.7; O2SAT 91–98; BMI 35.4
[2025-01-18 00:53] LABS: Troponin I < 0.01 ng/ml (0.00-0.034)
[2025-01-18] MEDS: FUROSEMIDE 40MG/4ML VIAL 40 MG IV ×3 (01:09→14:59)
[2025-01-18] MEDS: NICARDIPINE HCL 25 MG in 0.9 % SODIUM CHLORIDE 240 ML 50 MG IV (01:24)
--- NOTE | 2025-01-18 01:57 | PC.NURSE ---
Patient admitted to ICU unit via wheelchair from ED @01:43am
--- NOTE | 2025-01-18 03:48 | PC.NURSE ---
Pt called out, yelling someone help me. Upon entering room, Pt c/o severe leg cramps. States d/t her MS, she is unable to relax her legs. Pt reported she needed to stand up. Pt stood to side of bed, difficulty bearing weight d/t pain. Pt then reported nausea and sweating. On monitor, HR dropped to 52 and SBP dropped to 109. Pt appeared to have vagal response after standing. Pt was sat back down, given snack and drink. Pt reports she feels back to normal. HR back up to 80's and SBP 128.
[2025-01-18 03:54] LABS: Troponin I < 0.01 ng/ml (0.00-0.034)
--- NOTE | 2025-01-18 05:15 | P.HP_ITS ---
History of Present Illness *Admission Date: 01/18/25 *Reason for visit:: SOB *History of present illness: Patient is a 69-year-old female with past medical history of hypertension hyperlipidemia CAD, atrial fibrillation not on any anticoagulation who presents to the hospital due to shortness of breath, orthopnea and dyspnea on exertion. Patient mentions she was feeling short of breath at home that made her come to the hospital, on arrival patient was noticed to have blood pressure greater than 200s. Patient otherwise denied active chest pain shortness of breath nausea vomiting diarrhea constipation dysuria at time of my evaluation. [facility] Disclaimer: The information contained in this section may have been updated after the patient was seen, as this information can be updated by other users. Medical History (Updated 01/18/25 @ 05:33 by Nadiya Hodges MD) SOB (shortness of breath) on exertion Weight gain Angina pectoris Abnormal nuclear cardiac imaging test Status post placement of implantable loop recorder HLD (hyperlipidemia) HTN (hypertension) Coronary artery disease Chest pressure Anemia Dyspnea Numbness Dizziness Multiple sclerosis Chest pain Atrial fibrillation Surgical History History of esophagogastroduodenoscopy (EGD) History of colonoscopy Family History Other Asthma Cancer Coronary artery disease Diabetes Heart attack Hypertension Stroke Social History (Updated 01/18/25 @ 02:14 by Patricia Bernardo RN) Smoking Status: Never smoker second hand exposure: No alcohol intake: never counseling provided: provider counseling substance use type: denies use current occupational status: retired and disabled Travel in the last 8 weeks?: Inside the [place] household members: spouse housing: house current occupational exposures/hazards: No caffeine: Yes Have you lived/traveled outside [place] in past 30 days?: No Contact w/someone who lives/traveled outside US past 30 days?: No Exposure to someone with infectious disease in past 14 days?: No Do you have a fever (greater than 100.4 F or 38 C)?: No Have you tested positive for COVID-19?: No Exposed to someone with COVID-19 in past 14 days?: No Do you have a sore throat?: No Do you have a cough?: No Do you have any weakness?: No Are you experiencing any nausea/vomitting?: No Do you have any diarrhea?: No Are you experiencing any unusual bleeding?: No Do you have any muscle aches/pain?: No Do you have any abdominal pain?: No Are you experiencing loss of taste or smell?: No Other Medical History Have you received the Flu Vaccine for this season: Yes Have you received the Pneumonia Vaccine: Yes Review of Systems Review of Systems Review of systems:: pertinent systems reviewed and negative unless documented below Meds Home Medications and Allergies Home Medications ?Medication ?Instructions ?Recorded ?Confirmed ?Type calcium 600 mg-D3 800 unit-mag11 1 each PO DAILY Suppl ement 06/01/17 01/17/25 History 50 gj-cxxa-jxiwhs-aj-s.borat tablet multivitamin-ferrous 1 each PO DAILY Supplement 0 06/01/17 01/17/25 History fumarate-folic acid 18 mg-400 mcg tablet aspirin 81 mg chewable tablet 81 mg PO DAILY Blood thi nner 03/09/20 01/17/25 History melatonin 10 mg tablet 10 mg PO HS PRN Sleep 01/17/25 History hydrocortisone 2.5 % topical cream 1 applic RI QD-BID PRN hemorrhoids 01/29/22 11/08/24 Rx with perineal applicator #30 grams (Proctosol HC) ascorbic acid (vitamin C) 1,000 mg 1 g PO DAILY 01/17/25 History tablet (Vitamin C) mecobalamin (vitamin B12) 1,000 1,000 mcg PO DAILY 01/17/25 History mcg chewable tablet (B12 Active) tamsulosin 0.4 mg capsule 0.4 mg PO DAILY 03/26/22 History omeprazole 40 mg capsule,delayed 40 mg PO DAILY stomac h #90 caps 06/11/23 01/17/25 Rx release loratadine 10 mg tablet mg PO DAILY 07/13/23 5 History hydrocortisone acetate 25 mg 25 mg RI BID PRN inflamma tion 10/01/23 11/08/24 History rectal suppository psyllium husk 0.4 gram capsule 0.4 g PO BID PRN no com ment 10/01/23 01/17/25 History (Metamucil) atorvastatin 80 mg tablet 80 mg PO DAILY Cholesterol # 90 tabs 07/27/24 01/17/25 Rx losartan 25 mg tablet See Rx Instructions .Route 0 11/08/24 01/17/25 Rx .COMPLEX #90 tabs New Prescriptions to Start Prescriptions: Allergies Allergy/AdvReac Type Severity Reaction Status Date / Time diltiazem AdvReac Mild extremity Verified 11/08/24 09:44 swelling Exam Data for Last 24 hours Vital signs and Labs for Last 24 Hours: Temp Pulse Resp BP Pulse Ox O2 Del Method 97.7 F 64 17 145/61 H 92 L Room Air 01/18/25 02:00 01/18/25 04:40 01/18/25 04:40 01/18/25 04:40 01/18/25 04:40 01/18/25 04:00 Laboratory Results - last 24 hr 01/17/25 20:46: Urine Color Yellow, Urine Appearance Clear, Urine pH 6.0, Ur Specific [place] 1.020, Urine Protein Negative, Urine Glucose (UA) Negative, Urine Ketones Negative, Urine Blood Negative, Urine Nitrate Negative, Urine Bilirubin Negative, Urine Urobilinogen 0.2, Ur Leukocyte Esterase 1+ A, Urine RBC Occasional, Urine WBC None, Ur Squamous Epith Cells None, Urine Bacteria None 01/17/25 21:04: WBC 7.5, RBC 4.00 L, Hgb 11.9 L, Hct 36.8 L, MCV 92.0, MCH 29.8, MCHC 32.3, RDW 12.9, Plt Count 278, MPV 10.4, Neut % (Auto) 58.3, Lymph % (Auto) 30.9, [facility] % (Auto) 6.5, Eos % (Auto) 3.3, Baso % (Auto) 0.5, Neut # (Auto) 4.4, Lymph # (Auto) 2.3, [facility] [place] [facility] # (Auto) 0.5, Eos # (Auto) 0.3, Baso # (Auto) 0.0, PT 10.3, INR 0.92, APTT 23.8, Sodium 141, Potassium 4.2, Chloride 102, Carbon Dioxide 27, Anion Gap 16.2 H, BUN 22 H, Creatinine 0.90, Estimated Creat Clear 67, Estimated GFR 62, Est GFR ( Amer) 75, Glucose 106 H, Calcium 8.8, Total Bilirubin 0.5, AST 37 H, ALT 23, Alkaline Phosphatase 106, Troponin I < 0.01, NT-Pro-B Natriuret Pep 799 H, Total Protein 8.3 H, Albumin 4.7, Globulin 3.6 H, Albumin/Globulin Ratio 1.3 01/18/25 00:14: Troponin I < 0.01 01/18/25 03:09: Troponin I < 0.01 I & O for Last 24 hours: Intake & Output 01/15/25 01/16/25 01/17/25 01/18/25 23:59 23:59 23:59 23:59 Intake Total 80.833 / 80.833 Output Total 1600 / 1600 Balance -1519.167 / -1519.167 Weight 81.647 kg 85.1 kg Constitutional Constitutional: no acute distress *Routine HEENT Exam Head: Present normocephalic Eye: Present EOMI and PERRL ENT: Present mucous membranes moist *Routine Neck Exam Neck: Present supple; Absent lymphadenopathy *Routine Respiratory Exam Respiratory: Present decreased breath sounds *Routine Cardiovascular Exam Cardiovascular: Present RRR *Routine Abdominal Exam Abdominal: Present soft and normoactive bowel sounds; Absent tenderness *Routine Rectal Exam Rectal:: deferred *Routine Genitalia Exam Genitalia:: deferred *Routine Extremities Exam Extremities: Absent cyanosis, clubbing or edema *Routine Skin Exam Skin: Present warm; Absent rash *Routine Neurological Exam Neurological: Present alert and oriented X3 Assessment and Plan *Assessment and plan (1) Volume overload: Status: Acute Qualifiers: Hypervolemia type: unspecified Qualified Code(s): E87.70 - Fluid overload, unspecified Category: Medical Code(s): E87.70 - Fluid overload, unspecified (2) Pulmonary edema: Status: Acute Qualifiers: Chronicity: acute Qualified Code(s): J81.0 - Acute pulmonary edema Category: Medical Code(s): J81.1 - Chronic pulmonary edema (3) Acute CHF: Status: Acute Category: Medical Code(s): I50.9 - Heart failure, unspecified (4) Hypertensive emergency: Status: Acute Category: Medical Code(s): I16.1 - Hypertensive emergency Plan Patient is a 69-year-old female with past medical history of hypertension hyperlipidemia CAD, atrial fibrillation not on any anticoagulation who presents to the hospital due to shortness of breath, orthopnea and dyspnea on exertion. Patient mentions she was feeling short of breath at home that made her come to the hospital, on arrival patient was noticed to have blood pressure greater than 200s. Patient otherwise denied active chest pain shortness of breath nausea vomiting diarrhea constipation dysuria at time of my evaluation. Assessment and plan Hypertensive emergency Dyspnea on exertion, orthopnea, pulmonary edema suspect acute CHF Started on Cardene drip Lasix IV 40 twice daily BNP 799 Consult cardiology Monitor troponin Monitor on cardiac telemetry Chronic medical conditions CAD Hypertension Hyperlipidemia - Resume home aspirin, statin DVT prophylaxis-subcutaneous heparin
[2025-01-18 06:44] LABS: Hematocrit 37.0 % (37.0-47.0); Hemoglobin 12.3 g/dL (12.2-16.2); Immature Granulocytes % 0.3 %; Mean Corpuscular HGB Conc 33.2 g/dL (31.8-35.4); Mean Corpuscular Hemoglobin 30.1 pg (27.0-31.2); Mean Corpuscular Volume 90.7 fl (81-99); Nucleated Red Blood Cells % 0 %; Platelet Count 274 K/mm3 (142-424); Red Blood Count 4.08 M/mm3 (4.20-5.40); Red Cell Distribution Width-SD 41.5 fL; White Blood Count 7.8 K/mm3 (4.8-10.8)
[2025-01-18 07:32] LABS: Chloride 100 mmol/L (98-107); Potassium 3.9 mmoL/L (3.5-5.1); Sodium 139 mmol/L (136-145)
[2025-01-18 07:35] LABS: Anion Gap 13.9 mEq/L (5-15); Blood Urea Nitrogen 21 mg/dl (7-17); Calcium 9.1 mg/dl (8.4-10.2); Carbon Dioxide 29 mmol/L (22.0-30.0); Creatinine Clearance Estimated 70 mL/min (50-200); Creatinine,Serum 0.90 mg/dl (0.52-1.04); Estimated Glomerular Filt Rate 62 ml/min (>60); GFR (African American) 75 ML/MIN (>60); Glucose 116 mg/dl (74-100)
[2025-01-18] MEDS: HEPARIN SODIUM 5,000 UNIT/ML VIAL 5000 UNIT SUBCUT (08:32)
--- NOTE | 2025-01-18 08:59 | CA_ITS ---
APPROVED REPORT EXAM: Comprehensive 2D, Doppler, and color-flow Echocardiogram Fish Filleter: GIGI Noland, RVS Ht: 5 ft 1 in Wt: 187lbs BSA: 1.84 BP: 146/61 mmHg Indications: HTN, SOA, Watchman device, CHF 2D Dimensions IVSd 0.95 cm LVEF (Visual) 53.90 % PWd 1.01 cm LA Volume 73.30 mL LVDd 4.91 cm LA Volume Index 39.00 mL/m2 (M/F) 16-34 LVDs 3.54 cm Left Atrium 4.01 cm M-Mode Dimensions RVDd 3.04 cm (0.9-2.6) LA Diam 3.20 cm (1.9-4.0) LVDd 5.05 cm (3.5-5.7) LVDs 3.91 cm (3.5-5.7) IVSd 1.29 cm (0.6-1.1) PWd 0.95 cm (0.6-1.1) EF (Teich) 45.20% EPSs 0.53 cm FS 22.60% EDV (Teich) 121.00 mL TAPSE 2.04 (<1.7) ESV (Teich) 66.30 mL LV Diastology E Decel Time 230 (160-240 msec) E/A Ratio 0.92 MED A' 9.70 cm/s LAT A' 9.20 cm/s Aortic Valve JAMEY Index 1.34 cm2/m2 AoV Peak Howard. 153.0 (50-130 cm/s) AI PHT 1054.00 ms AO Peak GR. 9.30 mmHg AO Mean GR. 4.80 (<5 mmHg) AO VTI 27.4 (18-25 cm) JAMEY (VTI) 2.52 (2.5-4.5 cm2) Mitral Valve MV A Velocity 74.0 (40-130 cm/s) E/A Ratio 0.92 Left Ventricle The left ventricle is normal size. Left ventricular systolic function is normal. The left ventricular ejection fraction is within the normal range. There is increased left ventricular wall thickness. There is normal LV segmental wall motion. Transmitral Doppler flow pattern suggests impaired LV relaxation. LVEF is 55% Right Ventricle The right ventricle is normal size. The right ventricular systolic function is normal. Atria The left atrium is moderately dilated. The right atrium is mildly dilated. There is no color Doppler evidence of interatrial shunt. Aortic Valve The aortic valve is mildly thickened. There is no hemodynamically significant aortic valvular stenosis. Mild aortic regurgitation is present. Mitral Valve The mitral valve is normal in structure. No evidence of mitral valve stenosis. Mild mitral regurgitation is present. Tricuspid Valve The tricuspid valve leaflets are thin and pliable. Trace tricuspid regurgitation. There is insufficient TR jet to estimate RVSP. Pulmonic Valve The pulmonary valve is grossly normal in structure. Mild pulmonic valve regurgitation is present. Great Vessels The aortic root is normal in size. IVC is normal in size and collapses >50% with inspiration. Pericardium There is no pericardial effusion. Conclusion Normal biventricular systolic function. Biatrial dilation. Mild AI, mild MR, mild PI. Electronically signed by : Thao Cedeño MD 01/18/2025 23:28:29
[2025-01-18] MEDS: IRBESARTAN 150MG TAB 150 MG PO (09:08)
[2025-01-18] MEDS: TAMSULOSIN 0.4MG CAPSULE 0.4 MG PO (09:08)
[2025-01-18] MEDS: ASPIRIN 81MG CHEWABLE TABLET 81 MG PO (09:08)
[2025-01-18] MEDS: CARVEDILOL 12.5MG TABLET 12.5 MG PO (09:08)
--- NOTE | 2025-01-18 09:20 | HMH.PHAINT1 ---
Pharmacy Intervention Comments: MEDICATION RECONCILIATION COMPLETED ON PATIENT USING EXTERNAL FILL HISTORY FROM PHARMACY. -ISABEL MARTIN, DIALLOD
[2025-01-18] MEDS: BACLOFEN 10MG TABLET 5 MG PO ×2 (09:45→11:06)
[2025-01-18 09:51] LABS: Cholesterol 224 mg/dl (140-200); Triglycerides 128 mg/dl (30-150)
[2025-01-18 09:52] LABS: HDL Cholesterol 73 mg/dl (40-60)
--- OUTSIDE RECORDS SUMMARY | 2025-01-18 10:52 | XMS_ITS | Clinical Summary ---
Author Organization [facility] Address [address] [place] [address] Care Team Providers Care Globe Cleaner Name Role Phone Edson Berkowitz MD Primary Care Provider + [phone] Charlie Hopkins MD Unavailable + [phone] Jonathan Jarrett DO Unavailable [phone] Allergies Active Allergy Reactions Criticality Noted Date [...] Description 01/16/2025 4:00 PM EDT Office Visit [facility] Orthopaedic Surgery & Sports Medicine [address], [address] [place] [address] Jonathan Jarrett DO Multiple sclerosis, relapsing-remitting (Primary Dx) 01/16/2025 Travel 01/11/2025 7:14 AM EDT - 01/11/2025 11:59 PM EDT Hospital Encounter [facility] [address] [place] [address] Multiple sclerosis Discharge Disposition: Home or Self Care 01/11/2025 6:57 AM EDT - 01/11/2025 7:13 AM EDT Hospital Encounter [facility] [address] [place] [address] Multiple sclerosis Discharge Disposition: Home or Self [...] [facility] [address] [place] [address] 06/13/2025 10:30 AM EDT Office Visit [facility] Care Center [address] [facility], 2nd [place] [address] Paola Tapia, MINING ANALYST [address] [address] Health Maintenance Due Date Last Done Comments [facility]-Bone Density Scan 1955 [facility]-Hepatitis C Screening 1955 [facility]-Medicare Annual Wellness (AWV) 1955 [facility]-/Child/Adol SDOH Screenings 1955 [facility]- SDOH Screenings 1972 [facility]-Adult SDOH Screenings 1972 CT Colonography 07/11/1999 Colonoscopy 07/11/1999 FIT-DNA 07/11/1999 FIT 07/11/1999 FOBT 07/11/1999 Sigmoidoscopy 07/11/1999 [facility]-Colorectal Cancer Screening 07/11/1999 [id number] Vaccine ( season) 2024 12/18/2021, 02/06/2021, 07/04/2020, [...] this topic Medical Devices Implanted Type Area Registered Nurse Bone Marrow Transplant Device Identifier Shelf Expiration Date Model / Serial / Lot [employer] Cardiac Lux Dx-05/23/2019 Implanted:05/07 (Quantity not on file) Implant Chest [employer]GO STUDIOS [id number] / [id number] / Description:Patient states t his has been explanted but will need CXR prior to next MRI scan to determine it has been removed, acr 12/02/24 Watchman Lee Ann-10/07/2024 Implanted:07/2024 by Mike Jimenez DO (Quantity not on file) Left Atrial Appendage Closure Heart [employer] [id number] / [id number] / Procedures Procedure Name Priority Date/Time Associated [...] error, please notify the sender immediately at [phone] and permanently delete the original report and destroy any copies or printouts. Narrative 01/11/2025 7:54 PM EDT [facility] - Phone Outpatient NAME: Norah Carlisle DATE OF EXAM: 01/11/2025 Patient No: [id number] Physician: Nicolasa Date of : 1955 Past [...] Carlisle DATE OF EXAM: 01/11/2025 Patient No: [id number] Physician: Kolby^Jonathan Date of : 1955 Past [...] in error, pleasenotify the sender immediately at [phone] and permanently delete theoriginal report and destroy [...] Adults <6.0% Children and Adolescents <7.5% Source: [place] [employer]. Standards of medical care in diabetes,2017. Diabetes Care.2017:40 (suppl 1):S1-S135. HbA1c assay performed by an ion-exchange chromatography method that is certified traceable to the DCCT. us Christina Rangel MD LAB BLOOD ORDERABLES Final R esult [facility] [address] [place] [address] from Last 3 Months or Most Recently Relevant to Health Maintenance Insurance MEDICARE Member Subscriber Plan / Payer (Ef fective 2015-Present) Name:Norah Carlisle Member ID:[id number] Relation to Subscriber:Self Name:Norah Carlisle Subscriber ID:[id number] Payer ID:MEDICARE Group ID:Not on file Type:Medicare Address: [place] [phone] Care Teams Globe Cleaner Relationship Specialty Start Date End Date Edson Berkowitz MD [address] [place] [address] PCP - General 08/17/20 Charlie Hopkins MD [address] [place] [address] Service Attending Neurology 05/22/21 Jonathan Jarrett DO [address] [place] [address] Consulting Physician Neurology 08/29/21
--- OUTSIDE RECORDS SUMMARY | 2025-01-18 10:52 | XMS_ITS ---
Author Organization [facility] Address [address] [place] [address] Care Team Providers Care Juvenile Probation Officer Name Role Phone Edson Berkowitz MD Primary Care Provider + [phone] Active Problems Problem Noted Date Diagnosed Date [...] deficits 10/30/2021 CAD 10/30/2021 Overview (01/19/2022): a. [facility] 2019: 40% mid LAD lesion Chronic [...]
--- OUTSIDE RECORDS SUMMARY | 2025-01-18 10:52 | XMS_ITS | Clinical Summary ---
Author Organization [facility] Address [address] [place] [address] Care Team Providers Care Vc++ Developer Name Role Phone Edson Berkowitz MD Primary Care Provider + [phone] Allergies Active Allergy Reactions Criticality Noted Date [...] deficits 10/30/2021 CAD 10/30/2021 Overview (01/19/2022): a. [facility] 2019: 40% mid LAD lesion Chronic diastolic [...] Description 10/28/2024 1:45 PM EDT Office Visit [facility] SLEEP [facility]INE [address] [facility] [address] [place] [address] Thee Vickers, NIKITA Obstructive sleep [...] or training? Not on file Preferred Language [place] Citizen 02/25/2022 Comments No Sex and Gender Information [...] Description 03/06/2025 9:15 AM EST Office Visit [facility] SLEEP [facility]IC[facility] [address] [facility] [address] [place] [address] Thee Vickers, PRESS TENDER [employer] [address] [place] [address] Health Maintenance Due Date Last Done Comments [...] Completed 02/03/2022 Medical Devices Implanted Type Area Pin Sorter And Bagger Device Identifier Shelf Expiration Date Model / Serial / Lot Dev Cls Lee Ann Watchman/Flx 27mm - [id number] Implanted:Qty: 1 on 02/12/2022 by Mike Jimenez DO at [facility] Implant Vinted 10/07/2024 [id number] / / [id number] Loop Recorder TweepsMap Description:Card on chart Procedures Procedure Name Priority [...] 11:33 PM by Garfield Abreu. Garfield [facility] ORDERABLES Final Res ult from Last 3 Months or Most Recently Relevant to Health Maintenance Insurance MEDICARE A & B Advance Directives Documents on File Type Date Recorded Patient Waist Pleater Expl anation LIVING WILL - SCAN 02/10/2022 [...] or is breathing): Full Support Care Teams Vc++ Developer Relationship Specialty Start Date End Date Edson Berkowitz MD [address] [place] [address] [address] [facility] [place] [address] PCP - General Adolescent Medicine 11/09/21
--- OUTSIDE RECORDS SUMMARY | 2025-01-18 10:53 | XMS_ITS | Encounter Summary ---
Author Organization [facility] Address [address] [place] [address] Care Team Providers Care Business Services Sales Agent Name Role Phone Edson Berkowitz MD Primary Care Provider + [phone] Charlie Hopkins MD Unavailable + [phone] Jonathan Jarrett DO Unavailable [phone] Encounter Details Date Type Department Care Team (Late st Contact Info) Description 04/25/2015 Abstract [facility] [address] [id number] [place] [address] Radiation Oncology, Physician, [address] [place], [place] [id number] Social History Tobacco Use Types Packs/Day Years [...] [facility] [address] [place] [address] 06/13/2025 10:30 AM EDT Office Visit [facility] [address] 2[address] [place] [address] Paola Tapia, WORKS MANAGER [address] [place] [address] documented as of this encounter Visit Diagnoses Not on filedocumented in this encounter Care Teams Business Services Sales Agent Relationship Specialty Start Date End Date Edson Berkowitz MD [address] [place] [address] PCP - General 08/17/20 Charlie Hopkins MD [address] [place] [address] Service Attending Neurology 05/22/21 Jonathan Jarrett DO [address] [place] [address] Consulting Physician Neurology 08/29/21 documented as of this encounter
--- OUTSIDE RECORDS SUMMARY | 2025-01-18 10:53 | XMS_ITS | Encounter Summary ---
Author Organization [facility] Address [address] [place] [address] Care Team Providers Care Process Improvement Consultant Name Role Phone Edson Berkowitz MD Primary Care Provider + [phone] Charlie Hopkins MD Unavailable + [phone] Jonathan Jarrett DO Unavailable [phone] Encounter Details Date Type Department Care Team [...] AM EDT Appointment [facility] [address] [address] 06/13/2025 10:30 AM EDT Office Visit [facility] [address] [place] [address] Paola Tapia, SUPERINTENDENT GENERATING PLANT [address] [facility] [address] [place] [address] documented as of this encounter Visit Diagnoses Not on filedocumented in this encounter Additional Health Concerns Assessment Noted Time A fall risk assessment has been complete d for the patient 06/09/2024 11:21 AM EST A Body Mass Index follow-up plan has been documented for the patient 01/15/2024 2:32 PM EDT documented as of this encounter Care Teams Process Improvement Consultant Relationship Specialty Start Date End Date Edson Berkowitz MD [address] [place] [address] PCP - General 08/17/20 Charlie Hopkins MD [address] [place] [address] Service Attending Neurology 05/22/21 Jonathan Jarrett DO [address] [place] [address] Consulting Physician Neurology 08/29/21 documented as of this encounter
--- OUTSIDE RECORDS SUMMARY | 2025-01-18 10:53 | XMS_ITS | Encounter Summary ---
Author Organization [facility] Address [address] [place] [address] Care Team Providers Care Admissions Dean Name Role Phone Edson Berkowitz MD Primary Care Provider + [phone] Charlie Hopkins MD Unavailable + [phone] Jonathan Jarrett DO Unavailable [phone] Encounter Details Date Type Department Care Team [...] Info) Description 06/13/2025 9:30 AM EDT Appointment [facility] Breast Care Center [facility] [place] [address] 06/13/2025 10:30 AM EDT Office Visit [facility] Center [address] [place] [address] Paola Tapia D, DIRECTOR [employer] [address] [facility] [address] [place] [address] documented as of this encounter Visit Diagnoses Not on filedocumented in this encounter Additional Health Concerns Assessment Noted Time A fall risk assessment has been complete d for the patient 01/16/2025 2:54 PM EDT A Body Mass Index follow-up plan has been documented for the patient 01/16/2025 3:25 PM EDT documented as of this encounter Care Teams Admissions Dean Relationship Specialty Start Date End Date Edson Berkowitz MD [address] [place] [address] PCP - General 08/17/20 Charlie Hopkins MD [address] [place] [address] Service Attending Neurology 05/22/21 Jonathan Jarrett DO [address] [place] [address] Consulting Physician Neurology 08/29/21 documented as of this encounter
--- NOTE | 2025-01-18 11:00 | P.CONCA_ITS ---
History of Present Illness History of Present Illness Consult date: 01/18/25 Requesting physician: González Lujan Consult reason: shortness of breath Chief complaint: Shortness of breath History of present illness: This is a 69-year-old white female who presented to the emergency department with shortness of breath. The patient states that she was severely short of breath yesterday with orthopnea and dyspnea on exertion. The patient states that she came to the hospital because her symptoms got severe. She denied any chest pain or pressure. She states that she did have a little bit of edema in her bilateral lower extremities yesterday. No edema today. She denies any fever, chills, nausea, vomiting, diarrhea. Upon arrival to the emergency department the patient's blood pressure was greater than 200 systolic. She was subsequently admitted to the hospital for hypertensive emergency. She was started on a Cardene drip. Her blood pressure has significantly improved today and the Cardene drip is stopped. Will adjust oral antihypertensive PFSH PFSH Disclaimer: The information contained in this section may have been updated after the patient was seen, as this information can be updated by other users. Medical History (Updated 01/18/25 @ 13:33 by Shavon Dumont APRN) Acute heart failure with preserved ejection fraction (HFpEF) SOB (shortness of breath) on exertion Weight gain Angina pectoris Abnormal nuclear cardiac imaging test Status post placement of implantable loop recorder HLD (hyperlipidemia) HTN (hypertension) Coronary artery disease Chest pressure Anemia Dyspnea Numbness Dizziness Multiple sclerosis Chest pain Atrial fibrillation Surgical History History of esophagogastroduodenoscopy (EGD) History of colonoscopy Family History Other Asthma Cancer Coronary artery disease Diabetes Heart attack Hypertension Stroke Social History (Updated 01/18/25 @ 02:14 by Patricia Bernardo RN) Smoking Status: Never smoker second hand exposure: No alcohol intake: never counseling provided: provider counseling substance use type: denies use current occupational status: retired and disabled Travel in the last 8 weeks?: Inside the [place] household members: spouse housing: house current occupational exposures/hazards: No caffeine: Yes Have you lived/traveled outside [place] in past 30 days?: No Contact w/someone who lives/traveled outside [place] past 30 days?: No Exposure to someone with infectious disease in past 14 days?: No Do you have a fever (greater than 100.4 F or 38 C)?: No Have you tested positive for COVID-19?: No Exposed to someone with COVID-19 in past 14 days?: No Do you have a sore throat?: No Do you have a cough?: No Do you have any weakness?: No Are you experiencing any nausea/vomitting?: No Do you have any diarrhea?: No Are you experiencing any unusual bleeding?: No Do you have any muscle aches/pain?: No Do you have any abdominal pain?: No Are you experiencing loss of taste or smell?: No Review of Systems Review of Systems Review of systems:: pertinent systems reviewed and negative unless documented below Constitutional Constitutional: Reports system reviewed and no additional complaints, except as documented Eyes Eyes: Reports system reviewed and no additional complaints, except as documented ENT Ears, Nose, Mouth, and Throat: Reports system reviewed and no additional complaints, except as documented *Cardiovascular Cardiovascular: Reports system reviewed and no additional complaints, except as documented, Reports dyspnea, Reports dyspnea on exertion and Reports orthopnea *Respiratory Respiratory: Reports system reviewed and no additional complaints, except as documented, Reports dyspnea and Reports dyspnea on exertion *Gastrointestinal Gastrointestinal: Reports system reviewed and no additional complaints, except as documented *Genitourinary Genitourinary: Reports system reviewed and no additional complaints, except as documented *Musculoskeletal Musculoskeletal: Reports system reviewed and no additional complaints, except as documented Integumentary/Breasts Skin/Breast: Reports system reviewed and no additional complaints, except as documented *Neurologic Neurologic: Reports system reviewed and no additional complaints, except as documented Psychiatric Psychiatric: Reports system reviewed and no additional complaints, except as documented Endocrine Endocrine: Reports system reviewed and no additional complaints, except as documented Hematologic/Lymphatic Hematologic/Lymphatic: Reports system reviewed and no additional complaints, except as documented Allergic/Immunologic Allergic/Immunologic: Reports system reviewed and no additional complaints, except as documented Exam Data for Last 24 hours Vital signs and Labs for Last 24 Hours: Temp Pulse Resp BP Pulse Ox O2 Del Method 97.9 F 73 18 148/77 H 93 L Room Air 01/18/25 08:32 01/18/25 09:00 01/18/25 09:00 01/18/25 09:00 01/18/25 09:00 01/18/25 09:00 Laboratory Results - last 24 hr 01/17/25 20:46: Urine Color Yellow, Urine Appearance Clear, Urine pH 6.0, Ur Specific Cam[place] 1.020, Urine Protein Negative, Urine Glucose (UA) Negative, Urine Ketones Negative, Urine Blood Negative, Urine Nitrate Negative, Urine Bilirubin Negative, Urine Urobilinogen 0.2, Ur Leukocyte Esterase 1+ A, Urine RBC Occasional, Urine WBC None, Ur Squamous Epith Cells None, Urine Bacteria None 01/17/25 21:04: WBC 7.5, RBC 4.00 L, Hgb 11.9 L, Hct 36.8 L, MCV 92.0, MCH 29.8, MCHC 32.3, RDW 12.9, Plt Count 278, MPV 10.4, Neut % (Auto) 58.3, Lymph % (Auto) 30.9, [place] % (Auto) 6.5, Eos % (Auto) 3.3, Baso % (Auto) 0.5, Neut # (Auto) 4.4, Lymph # (Auto) 2.3, [place] # (Auto) 0.5, Eos # (Auto) 0.3, Baso # (Auto) 0.0, PT 10.3, INR 0.92, APTT 23.8, Sodium 141, Potassium 4.2, Chloride 102, Carbon Dioxide 27, Anion Gap 16.2 H, BUN 22 H, Creatinine 0.90, Estimated Creat Clear 67, Estimated GFR 62, Est GFR ( Amer) 75, Glucose 106 H, Calcium 8.8, Total Bilirubin 0.5, AST 37 H, ALT 23, Alkaline Phosphatase 106, Troponin I < 0 .01, NT-Pro-B Natriuret Pep 799 H, Total Protein 8.3 H, Albumin 4.7, Globulin 3.6 H, Albumin/Globulin Ratio 1.3 01/18/25 00:14: Troponin I < 0.01 01/18/25 03:09: Troponin I < 0.01 01/18/25 06:26: WBC 7.8, RBC 4.08 L, Hgb 12.3, Hct 37.0, MCV 90.7, MCH 30.1, MCHC 33.2, RDW 12.6, Plt Count 274, MPV 10.1, Neut % (Auto) 67.2, Lymph % (Auto) 21.9, [place] % (Auto) 8.6, Eos % (Auto) 1.7, Baso % (Auto) 0.3, Neut # (Auto) 5.2, Lymph # (Auto) 1.7, [place] # (Auto) 0.7, Eos # (Auto) 0.1, Baso # (Auto) 0.0, Sodium 139, Potassium 3.9, Chloride 100, Carbon Dioxide 29, Anion Gap 13.9, BUN 21 H, Creatinine 0.90, Estimated Creat Clear 70, Estimated GFR 62, Est GFR ( Amer) 75, Glucose 116 H, Calcium 9.1, Triglycerides 128, Cholesterol 224 H, LDL Cholesterol Direct 93.11 L, VLDL Cholesterol 26, HDL Cholesterol 73 H , Cholesterol/HDL Ratio 3.1 I & O for Last 24 hours: Intake & Output 01/15/25 01/16/25 01/17/25 01/18/25 23:59 23:59 23:59 23:59 Intake Total 352.916 / 352.916 Output Total 2500 / 2500 Balance -2147.084 / -2147.084 Weight 180 lb 187 lb 9.814 oz Constitutional Constitutional: no acute distress and obese *Routine HEENT Exam Head: Present normocephalic and atraumatic ENT: Present mucous membranes moist *Routine Neck Exam Neck: Present supple, full ROM and normal carotid upstroke; Absent JVD, carotid bruit or lymphadenopathy *Routine Respiratory Exam Respiratory: Present CTA bilaterally, normal respiratory effort, able to speak in complete sentences and symmetric chest movement *Routine Cardiovascular Exam Cardiovascular: Present RRR, Normal S1 and Normal S2; Absent murmur or gallop *Routine Abdominal Exam Abdominal: Present soft and normoactive bowel sounds; Absent tenderness, disten ded or organomegaly *Routine Extremities Exam Extremities: Present full ROM, pulses intact and normal capillary refill; Absent cyanosis, clubbing or edema *Routine Skin Exam Skin: Present intact and warm; Absent erythema *Routine Neurological Exam Neurological: Present alert, oriented X3 and CN II-XII intact; Absent sensory deficit or motor deficit Routine Psychiatric Exam Psychiatric: Present normal affect Meds Home Medications and Allergies Home Medications ?Medication ?Instructions ?Recorded ?Confirmed ?Type calcium 600 mg-D3 800 unit-mag11 1 each PO DAILY Suppl ement 06/01/17 01/17/25 History 50 ge-xfun-yrwlhq-aj-s.borat tablet multivitamin-ferrous 1 each PO DAILY Supplement 0 06/01/17 01/17/25 History fumarate-folic acid 18 mg-400 mcg tablet aspirin 81 mg chewable tablet 81 mg PO DAILY 03/09/20 01/17/25 History melatonin 10 mg tablet 10 mg PO HS 12/02/21 5 History ascorbic acid (vitamin C) 1,000 mg 1 g PO DAILY 01/17/25 History tablet (Vitamin C) mecobalamin (vitamin B12) 1,000 1,000 mcg PO DAILY 01/17/25 History mcg chewable tablet (B12 Active) tamsulosin 0.4 mg capsule 0.4 mg PO DAILY 03/26/22 History omeprazole 40 mg capsule,delayed 40 mg PO DAILY stomac h #90 caps 06/11/23 01/17/25 Rx release psyllium husk 0.4 gram capsule 0.4 g PO BIDP PRN Const ipation 10/01/23 01/18/25 History (Metamucil) atorvastatin 80 mg tablet 80 mg PO DAILY Cholesterol # 90 tabs 07/27/24 01/17/25 Rx losartan 25 mg tablet 25 mg PO DAILY 01/18/2501/04 History New Prescriptions to Start Prescriptions: Allergies Allergy/AdvReac Type Severity Reaction Status Date / Time diltiazem AdvReac Mild extremity Verified 11/08/24 09:44 swelling Assessment and Plan *Assessment and plan (1) Hypertensive emergency: Status: Acute Category: Medical Code(s): I16.1 - Hypertensive emergency (2) Acute heart failure with preserved ejection fraction (HFpEF): Status: Acute Category: Medical Code(s): I50.31 - Acute diastolic (congestive) heart failure (3) Volume overload: Status: Acute Qualifiers: Hypervolemia type: unspecified Qualified Code(s): E87.70 - Fluid overload, unspecified Category: Medical Code(s): E87.70 - Fluid overload, unspecified (4) Pulmonary edema: Status: Acute Qualifiers: Chronicity: acute Qualified Code(s): J81.0 - Acute pulmonary edema Category: Medical Code(s): J81.1 - Chronic pulmonary edema (5) HTN (hypertension): Status: Chronic Qualifiers: Hypertension type: primary hypertension Qualified Code(s): I10 - Essential (primary) hypertension Category: Medical Code(s): I10 - Essential (primary) hypertension (6) HLD (hyperlipidemia): Status: Chronic Qualifiers: Hyperlipidemia type: mixed hyperlipidemia Qualified Code(s): E78.2 - Mixed hyperlipidemia Category: Medical Code(s): E78.5 - Hyperlipidemia, unspecified (7) Coronary artery disease: Status: Chronic Qualifiers: Associated angina: without angina Coronary Disease-Associated Artery/Lesion type: [place] artery [place] vs. transplanted heart: [place] heart Qualified Code(s): I25.10 - Atherosclerotic heart disease of [place] coronary artery without angina pectoris Category: Medical Code(s): I25.10 - Atherosclerotic heart disease of [place] coronary artery without angina pectoris Plan Plan: 1. The patient was admitted to the hospital with hypertension urgency. She was started on a Cardene drip. Her blood pressure significantly improved including drip and subsequently been stopped. 2. Continue Coreg 12.5 mg twice daily and irbesartan 150 mg daily for hypertension. 3. The patient did have pulmonary edema on CT and lower extremity edema. She was treated with IV Lasix and her edema has resolved. Will send her home on Lasix 40 mg daily for continued diuresis. 4. The patient has a known history of coronary artery disease. She denies chest pain or pressure. She ruled out for an ID. No plans for invasive left cardiac catheterization at this time. Continue aspirin 81 mg daily. 5. LDL goal is less than 55. Her LDL is 93. She is on a statin. 6. Her blood pressure is now well-controlled. 7. The patient is stable for discharge home today from a cardiac standpoint. She will need to follow-up in cardiology clinic in 1 week on an outpatient basis. The patient will need to be discharged on the following cardiac medications: Aspirin 81 mg daily Lipitor 80 mg QHS Irbesartan 150 mg daily Carvedilol 12.5 mg twice daily Lasix 40 mg daily Thank you for the opportunity to help participate in the care of this patient. All recommendations and orders are per Dr. Cedeño.
--- NOTE | 2025-01-18 14:44 | P.DS_ITS ---
General Admission date:: 01/18/25 Discharge date: 01/18/25 HPI HPI HPI: Patient is a 69-year-old female with past medical history of hypertension hyperlipidemia CAD, atrial fibrillation not on any anticoagulation who presents to the hospital due to shortness of breath, orthopnea and dyspnea on exertion. Patient mentions she was feeling short of breath at home that made her come to the hospital, on arrival patient was noticed to have blood pressure greater than 200s. Patient otherwise denied active chest pain shortness of breath nausea vomiting diarrhea constipation dysuria at time of my evaluation. Hospital Course Hospital Course Hospital Course: 69-year-old female who presented with hypertensive emergency/urgency. Was started on Cardene drip. Had significant improvement in blood pressure. Diuresed well with 1 dose of Lasix. Initiated on irbesartan and Coreg with improvement in blood pressure. Cardiology consulted and evaluated on patient. Decision made to proceed with close follow-up with cardiology. Defer on invasive left heart cath at this time. Recommendations from cardiology as niles fang: Given her improvement in blood pressure, continue Coreg 12.5 mg twice daily and irbesartan 150 mg daily for hypertension. The patient did have pulmonary edema on CT and lower extremity edema. She was treated with IV Lasix and her edema has resolved. Will send her home on Lasix 40 mg daily for continued diuresis. The patient has a known history of coronary artery disease. She denies chest pain or pressure. She ruled out for an [place]. No plans for invasive left cardiac catheterization at this time. Continue aspirin 81 mg daily. LDL goal is less than 55. Her LDL is 93. Continue Lipitor 80 mg nightly. Blood pressure improved to 114/60 by time of discharge. Stable discharge home with close follow-up with cardiology in the next week for further evaluation. Echo was obtained during admission. Formal read still pending. Does not have significant depression of EF on pulmonary read however. Discussed plan with patient, expressed comfort with plan. Overall feeling better. Resume home medication for bladder dysfunction and GERD. Exam Data for Last 24 hours Vital signs and Labs for Last 24 Hours: Temp Pulse Resp BP Pulse Ox O2 Del Method 98.1 F 65 15 138/81 91 L Room Air 01/18/25 12:00 01/18/25 12:19 01/18/25 12:00 01/18/25 12:00 01/18/25 12:00 01/18/25 12:36 Laboratory Results - last 24 hr 01/17/25 20:46: Urine Color Yellow, Urine Appearance Clear, Urine pH 6.0, Ur Specific [place] 1.020, Urine Protein Negative, Urine Glucose (UA) Negative, Urine Ketones Negative, Urine Blood Negative, Urine Nitrate Negative, Urine Bilirubin Negative, Urine Urobilinogen 0.2, Ur Leukocyte Esterase 1+ A, Urine RBC Occasional, Urine WBC None, Ur Squamous Epith Cells None, Urine Bacteria None 01/17/25 21:04: WBC 7.5, RBC 4.00 L, Hgb 11.9 L, Hct 36.8 L, MCV 92.0, MCH 29.8, MCHC 32.3, RDW 12.9, Plt Count 278, MPV 10.4, Neut % (Auto) 58.3, Lymph % (Auto) 30.9, [place] % (Auto) 6.5, Eos % (Auto) 3.3, Baso % (Auto) 0.5, Neut # (Auto) 4.4, Lymph # (Auto) 2.3, [place] # (Auto) 0.5, Eos # (Auto) 0.3, Baso # (Auto) 0.0, PT 10.3, INR 0.92, APTT 23.8, Sodium 141, Potassium 4.2, Chloride 102, Carbon Dioxide 27, Anion Gap 16.2 H, BUN 22 H, Creatinine 0.90, Estimated Creat Clear 67, Estimated GFR 62, Est GFR ( Amer) 75, Glucose 106 H, Calcium 8.8, Total Bilirubin 0.5, AST 37 H, ALT 23, Alkaline Phosphatase 106, Troponin I < 0.01, NT-Pro-B Natriuret Pep 799 H, Total Protein 8.3 H, Albumin 4.7, Globulin 3.6 H, Albumin/Globulin Ratio 1.3 01/18/25 00:14: Troponin I < 0.01 01/18/25 03:09: Troponin I < 0.01 01/18/25 06:26: WBC 7.8, RBC 4.08 L, Hgb 12.3, Hct 37.0, MCV 90.7, MCH 30.1, MCHC 33.2, RDW 12.6, Plt Count 274, MPV 10.1, Neut % (Auto) 67.2, Lymph % (Auto) 21.9, [place] % (Auto) 8.6, Eos % (Auto) 1.7, Baso % (Auto) 0.3, Neut # (Auto) 5.2, Lymph # (Auto) 1.7, [place] # (Auto) 0.7, Eos # (Auto) 0.1, Baso # (Auto) 0.0, Sodium 139, Potassium 3.9, Chloride 100, Carbon Dioxide 29, Anion Gap 13.9, BUN 21 H, Creatinine 0.90, Estimated Creat Clear 70, Estimated GFR 62, Est GFR ( Amer) 75, Glucose 116 H, Calcium 9.1, Triglycerides 128, Cholesterol 224 H, LDL Cholesterol Direct 93.11 L, VLDL Cholesterol 26, HDL Cholesterol 73 H , Cholesterol/HDL Ratio 3.1 I & O for Last 24 hours: Intake & Output 01/15/25 01/16/25 01/17/25 01/18/25 23:59 23:59 23:59 23:59 Intake Total 624.999 / 624.999 Output Total 3000 / 3000 Balance -2375.001 / -2375.001 Weight 81.647 kg 85.1 kg Constitutional Constitutional: no acute distress, obese and cooperative *Routine HEENT Exam Head: Present normocephalic Eye: Present EOMI and PERRL ENT: Present mucous membranes moist *Routine Neck Exam Neck: Present supple; Absent lymphadenopathy *Routine Respiratory Exam Respiratory: Present CTA bilaterally; Absent rhonchi, wheezes or crackles *Routine Cardiovascular Exam Cardiovascular: Present RRR *Routine Abdominal Exam Abdominal: Present soft and normoactive bowel sounds; Absent tenderness *Routine Rectal Exam Patient deferred: visual exam *Routine Exam Patient deferred: external exam *Routine Extremities Exam Extremities: Absent cyanosis, clubbing or edema *Routine Skin Exam Skin: Present intact and warm; Absent rash *Routine Neurological Exam Neurological: Present alert, oriented X3 and moving all extremities; Absent altered mental status Results Data Completed and Pending Labs on day of discharge: Labs from last 24 hours 01/18/25 01/18/25 01/18/25 06:26 03:09 00:14 WBC 7.8 RBC 4.08 L Hgb 12.3 Hct 37.0 MCV 90.7 MCH 30.1 MCHC 33.2 RDW 12.6 Plt Count 274 MPV 10.1 Neut % (Auto) 67.2 Lymph % (Auto) 21.9 [place] % (Auto) 8.6 Eos % (Auto) 1.7 Baso % (Auto) 0.3 Neut # (Auto) 5.2 Lymph # (Auto) 1.7 [place] # (Auto) 0.7 Eos # (Auto) 0.1 Baso # (Auto) 0.0 PT INR APTT Sodium 139 Potassium 3.9 Chloride 100 Carbon Dioxide 29 Anion Gap 13.9 BUN 21 H Creatinine 0.90 Estimated Creat Clear 70 Estimated GFR 62 Est GFR ( Amer) 75 Glucose 116 H Calcium 9.1 Total Bilirubin AST ALT Alkaline Phosphatase Troponin I < 0.01 < 0.01 NT-Pro-B Natriuret Pep Total Protein Albumin Globulin Albumin/Globulin Ratio Triglycerides 128 Cholesterol 224 H LDL Cholesterol Direct 93.11 L VLDL Cholesterol 26 HDL Cholesterol 73 H Cholesterol/HDL Ratio 3.1 Urine Color Urine Appearance Urine pH Ur Specific [place] Urine Protein Urine Glucose (UA) Urine Ketones Urine Blood Urine Nitrate Urine Bilirubin Urine Urobilinogen Ur Leukocyte Esterase Urine RBC Urine WBC Ur Squamous Epith Cells Urine Bacteria 01/17/25 01/17/25 21:04 20:46 WBC 7.5 RBC 4.00 L Hgb 11.9 L Hct 36.8 L MCV 92.0 MCH 29.8 MCHC 32.3 RDW 12.9 Plt Count 278 MPV 10.4 Neut % (Auto) 58.3 Lymph % (Auto) 30.9 [place] % (Auto) 6.5 Eos % (Auto) 3.3 Baso % (Auto) 0.5 Neut # (Auto) 4.4 Lymph # (Auto) 2.3 [place] # (Auto) 0.5 Eos # (Auto) 0.3 Baso # (Auto) 0.0 PT 10.3 INR 0.92 APTT 23.8 Sodium 141 Potassium 4.2 Chloride 102 Carbon Dioxide 27 Anion Gap 16.2 H BUN 22 H Creatinine 0.90 Estimated Creat Clear 67 Estimated GFR 62 Est GFR ( Amer) 75 Glucose 106 H Calcium 8.8 Total Bilirubin 0.5 AST 37 H ALT 23 Alkaline Phosphatase 106 Troponin I < 0.01 NT-Pro-B Natriuret Pep 799 H Total Protein 8.3 H Albumin 4.7 Globulin 3.6 H Albumin/Globulin Ratio 1.3 Triglycerides Cholesterol LDL Cholesterol Direct VLDL Cholesterol HDL Cholesterol Cholesterol/HDL Ratio Urine Color Yellow Urine Appearance Clear Urine pH 6.0 Ur Specific [place] 1.020 Urine Protein Negative Urine Glucose (UA) Negative Urine Ketones Negative Urine Blood Negative Urine Nitrate Negative Urine Bilirubin Negative Urine Urobilinogen 0.2 Ur Leukocyte Esterase 1+ A Urine RBC Occasional Urine WBC None Ur Squamous Epith Cells None Urine Bacteria None DS: Diagnosis Discharge Diagnosis (1) Hypertensive emergency: Status: Acute Code(s): I16.1 - Hypertensive emergency (2) Acute heart failure with preserved ejection fraction (HFpEF): Status: Acute Code(s): I50.31 - Acute diastolic (congestive) heart failure (3) Volume overload: Status: Acute Code(s): E87.70 - Fluid overload, unspecified Qualifiers: Hypervolemia type: unspecified Qualified Code(s): E87.70 - Fluid overload, unspecified (4) Pulmonary edema: Status: Acute Code(s): J81.1 - Chronic pulmonary edema Qualifiers: Chronicity: acute Qualified Code(s): J81.0 - Acute pulmonary edema (5) HTN (hypertension): Status: Chronic Code(s): I10 - Essential (primary) hypertension Qualifiers: Hypertension type: primary hypertension Qualified Code(s): I10 - Essential (primary) hypertension (6) HLD (hyperlipidemia): Status: Chronic Code(s): E78.5 - Hyperlipidemia, unspecified Qualifiers: Hyperlipidemia type: mixed hyperlipidemia Qualified Code(s): E78.2 - Mixed hyperlipidemia (7) Coronary artery disease: Status: Chronic Code(s): I25.10 - Atherosclerotic heart disease of [place] coronary artery without angina pectoris Qualifiers: Associated angina: without angina Coronary Disease-Associated Artery/Lesion type: [place] artery [place] vs. transplanted heart: [place] heart Qualified Code(s): I25.10 - Atherosclerotic heart disease of [place] coronary artery without angina pectoris Meds Home Medications and Allergies Home Medications ?Medication ?Instructions ?Recorded ?Confirmed ?Type calcium 600 mg-D3 800 unit-mag11 1 each PO DAILY Suppl ement 06/01/17 01/17/25 History 50 vm-lauj-nrrwii-aj-s.borat tablet multivitamin-ferrous 1 each PO DAILY Supplement 0 06/01/17 01/17/25 History fumarate-folic acid 18 mg-400 mcg tablet aspirin 81 mg chewable tablet 81 mg PO DAILY 03/09/20 01/17/25 History melatonin 10 mg tablet 10 mg PO HS 12/02/21 5 History ascorbic acid (vitamin C) 1,000 mg 1 g PO DAILY 01/17/25 History tablet (Vitamin C) mecobalamin (vitamin B12) 1,000 1,000 mcg PO DAILY 01/17/25 History mcg chewable tablet (B12 Active) tamsulosin 0.4 mg capsule 0.4 mg PO DAILY 03/26/22 History omeprazole 40 mg capsule,delayed 40 mg PO DAILY stomac h #90 caps 06/11/23 01/17/25 Rx release psyllium husk 0.4 gram capsule 0.4 g PO BIDP PRN Const ipation 10/01/23 01/18/25 History (Metamucil) atorvastatin 80 mg tablet 80 mg PO DAILY Cholesterol # 90 tabs 07/27/24 01/17/25 Rx carvedilol 12.5 mg tablet 12.5 mg PO BID 30 days #60 t abs 01/18/25 Rx furosemide 40 mg tablet (Lasix) 40 mg PO DAILY #30 tab s 01/18/25 Rx irbesartan 150 mg tablet 150 mg PO DAILY 30 days #30 tabs 01/18/25 Rx New Prescriptions to Start Prescriptions: González Walters furosemide [Lasix] González Lujan irbesartan González Lujan Allergies Allergy/AdvReac Type Severity Reaction Status Date / Time diltiazem AdvReac Mild extremity Verified 11/08/24 09:44 swelling Discharge Plan Disposition Patient Disposition: Home, Self-Care Condition: Fair Discharge Order Discharge Orders: Discharge Order (Routine); Ordered 01/18/25 Ordered By: González Lujan Follow up Plan Follow up with: Shavon Dumont APRN [Nurse Practitioner, Cardiology] - 02/01/25 10:45 am Brittany Ibarra APRN [Primary Care Provider, Medical] - 01/24/25 10:15 am Prescriptions/Medication Reconciliation: New carvedilol 12.5 mg Tablet 12.5 mg PO BID 30 Days Qty: 60 0RF irbesartan 150 mg Tablet 150 mg PO DAILY 30 Days Qty: 30 0RF furosemide [Lasix] 40 mg tablet 40 mg PO DAILY Qty: 30 0RF Continued atorvastatin 80 mg tablet 80 mg PO DAILY Qty: 90 3RF aspirin 81 mg tablet,chewable 81 mg PO DAILY melatonin 10 mg tablet 10 mg PO HS ascorbic acid (vitamin C) [Vitamin C] 1,000 mg tablet 1 g PO DAILY tamsulosin 0.4 mg capsule 0.4 mg PO DAILY mecobalamin (vitamin B12) [B12 Active] 1,000 mcg tablet,chewable 1,000 mcg PO DAILY psyllium husk [Metamucil] 0.4 gram capsule 0.4 g PO BIDP PRN (Reason: Constipation) omeprazole 40 mg capsule,delayed release(DR/EC) 40 mg PO DAILY Qty: 90 3RF bzpoxpenetda-jtue-zadif acid 1 EACH tablet 1 each PO DAILY [id number]-tir 1 EACH tablet 1 each PO DAILY Problem Reconciliation Problems Reviewed?: Yes Patient Discharge Instructions ACTIVITY: Continue current activity DIET: continue same diet Print Language: Georgian Providers Primary Care Provider: Brittany Ibarra Admit Provider: González Lujan Attending Provider: González Lujan
--- NOTE | 2025-01-19 10:49 | SW/DCPLANNER ---
Spoke with patient on the phone. patient stated that she is feeling so much better. Patient stated that she is aware of her upcoming appointments. Patient stated that she was able to get her new medicine picked up from pharmacy. Patient stated that she has no concerns or questions at this time. Woody Weber
== END 2025-01-18 15:25 | disposition home or self-care (01) | DRG 304 ==
LOC: ER 21:06 → ICU 01-18 01:46
PROVIDERS: Internal Medicine; Nurse Practitioner; Nurse Practitioner Family; Admitting Provider Internal Medicine Adolescent Medicine; Emergency Provider Student in an Organized Health Care Education/Training Program; PCP Nurse Practitioner Family; Visit Provider Internal Medicine Adolescent Medicine
DX: I16.1 Hypertensive emergency (principal); I50.31 Acute diastolic (congestive) heart failure; I11.0 Hypertensive heart disease with heart failure; I48.91 Unspecified atrial fibrillation; I25.10 Atherosclerotic heart disease of native coronary artery without angina pectoris; E78.2 Mixed hyperlipidemia; G47.30 Sleep apnea, unspecified; G35.D Multiple sclerosis, unspecified; Z95.818 Presence of other cardiac implants and grafts; Z85.3 Personal history of malignant neoplasm of breast; Z79.82 Long term (current) use of aspirin; Z79.899 Other long term (current) drug therapy; Z88.8 Allergy status to other drugs, medicaments and biological substances
CPT/HCPCS: 36415; 71045; 71275; 80048; 80053; 80061; 81001; 83880; 84484; 85025; 85610; 85730; 87081; 87086; 93005; 93306; 99285; J1644; J1938; J2404; J7050; Q9967